=== PATIENT | female | born 1990 | race African-American/Black ===

== ENCOUNTER 2019-09-24 11:49 | Emergency (ER) | payer OTHER, SELFPAY ==
[2019-09-24 12:11] VITALS: BP 129/76; PULSE 108; RESP 20; TEMP 37.5; O2SAT 100
--- NOTE | 2019-09-24 12:41 | ED.GENADULT ---
HPI - General Adult General Chief complaint: Upper Respiratory Infection Stated complaint: cough/chest congestion Time Seen by Provider: 09/24/19 12:41 Source: patient and RN notes reviewed Mode of arrival: ambulatory Limitations: no limitations History of Present Illness HPI narrative: 29-year-old -[place] female complains of upper respiratory infection, sore throat, fatigue, facial congestion, intermittent chest wall tenderness with coughing episodes, and facial pain for the past 7 days. Amoxicillin 500mg (currently on for recent dental care), Dayquil, and Nyquil with some relief. No facial swelling. Dry cough. Chest congestion. Rhinorrhea and nasal congestion. Sore throat. Pain bilateral. Hurts to swallow. Low-grade fever, as high as 99F, orally. No drooling, neck or throat swelling. No chest pain, wheezing, or shortness of breath. 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 Denies nausea, vomiting, and abdominal pain. Tolerating liquids well. Bethany denies being , LMP 09/21/2019. Remains active. Some parts of this dictation were generated by voice recognition software and may contain typographical and/or grammatical inaccuracies. Related Data Home Medications Medication Instructions Recorded Confirmed amoxicillin 500 mg PO TID 09/24/19 09/24/19 Allergies Allergy/AdvReac Type Severity Reaction Status Date / Time No Known Allergies Allergy Verified 09/24/19 12:17 Review of Systems Review of Systems: Narrative: CONSTITUTIONAL: Complains of [id number]. Denies chills, sweats. EYES: Denies visual changes, redness, discharge. ENT: Complains of rhinorrhea, congestion, facial congestion and pain, sore throat. Denies otalgia. CARDIOVASCULAR: Denies chest pain, palpitations, edema. Complains of intermittent chest wall tenderness with coughing. RESPIRATORY: Denies dyspnea, wheezing. Complains of dry cough, chest congestion. GASTROINTESTINAL: Denies abdominal pain, nausea, vomiting, diarrhea. GENITOURINARY: Denies dysuria, hematuria, abnormal discharge. SKIN: Denies rash or itching. MUSCULOSKELETAL: Denies acute back pain, joint pain, or myalgia. NEUROLOGIC: Denies numbness or focal weakness. PSYCHIATRIC: Denies anxiety or depression. All systems reviewed and are unremarkable except as noted in HPI and below. 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 There is no relevant family history pertinent to the presenting complaint. Exam Narrative: Exam Narrative: GENERAL: This is a well-nourished, well-developed patient, in no apparent distress. Talks in full sentences and ambulates with steady gait without dyspnea. HEAD: normocephalic, atraumatic. EYES: PERRL. Sclera clear/white. Vision is grossly intact. EARS: External ears normal, auditory canals clear and without drainage, TMs normal without perforation. Hearing grossly intact. NOSE: External nose normal with no obvious nasal discharge, nares with moderate redness and enlarge turbinates, clear rhinorrhea. SINUSES: No significant tenderness upon palpation to maxillary and frontal sinuses. THROAT: Mucous membranes moist, posterior pharynx with mild erythema and exudate, and no drainage, no concern for Peritonsillar abscess. No drooling, trismus, or neck swelling. NECK: Neck supple, non-tender without lymphadenopathy, masses or thyromegaly. CARDIOVASCULAR: Regular rate and rhythm without murmurs, gallops, or rubs. Diffused mild-moderate reproducible tenderness to chest wall. No crepitus/subq air palpable. Skin intact. No ecchymosis or lesions. No
[2019-09-24 13:03] VITALS: BP 104/69; PULSE 105; RESP 20; TEMP 37.3; O2SAT 100
== END 2019-09-24 13:03 | disposition home or self-care (01) ==
PROVIDERS: Emergency Provider Nurse Practitioner Family
DX: J40 Bronchitis, not specified as acute or chronic (principal); M94.0 Chondrocostal junction syndrome [Tietze]; M41.9 Scoliosis, unspecified
CPT/HCPCS: 87081; 87880; 99213; G0463

== ENCOUNTER 2019-10-13 15:31 | Emergency (ER) | payer OTHER, SELFPAY ==
--- NOTE | 2019-10-13 15:35 | ED.EYEPROB ---
HPI - Eye Problem General Chief complaint: Eye Problems Stated complaint: sore on r/eyelid Time Seen by Provider: 10/13/19 15:35 Source: patient and RN notes reviewed History of Present Illness HPI Narrative: Patient is a 29-year-old female presents the urgent care with complaints of a stye to the right upper eyelid. Patient states it started approximately 2 weeks ago and she has been using warm compress and Visine without any relief. Patient states that the area is recurrent and denies of any drainage, severe pain, itching. Denies of any vision changes, trauma, known injury to the eye. No other acute complaints. No acute distress noted. Patient plan of care. Related Data Home Medications Medication Instructions Recorded Confirmed gabapentin 300 mg PO BID 10/13/19 10/13/19 Allergies Allergy/AdvReac Type Severity Reaction Status Date / Time No Known Allergies Allergy Verified 10/13/19 15:45 Review of Systems Review of Systems: Narrative: CONSTITUTIONAL: Denies fever, chills, or sweats. EYES: Denies visual changes, redness, or discharge. Reports of a right upper eyelid stye ENT: Denies rhinorrhea, congestion, sore throat, or otalgia. CARDIOVASCULAR: Denies chest pain, palpitations, or edema. RESPIRATORY: Denies cough or dyspnea. GASTROINTESTINAL: Denies abdominal pain, nausea, vomiting, or diarrhea. GENITOURINARY: Denies dysuria or hematuria. SKIN: Denies rash or itching. MUSCULOSKELETAL: Denies back pain, joint pain, or myalgia. NEUROLOGIC: Denies headache, numbness, or weakness. All other systems reviewed are negative, except as documented in HPI. 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 There is no relevant family history pertinent to the patient complaint. Exam Narrative: Exam Narrative: GENERAL: This is a well-nourished, well-developed patient, in no apparent distress. HEAD: normocephalic, atraumatic. EYES: PERRL. Sclera clear/white. Vision is grossly intact. non-tender, moderately inflammed right upper eyelid nodule without severe pain or itching EARS: External ears normal NOSE: External nose normal with no obvious nasal discharge, nares without redness, no rhinorrhea. THROAT: Mucous membranes moist NECK: Neck supple CARDIOVASCULAR: Regular rate and rhythm without murmurs, gallops, or rubs. RESPIRATORY: Clear to auscultation. Breath sounds equal bilaterally. No wheezes, rales, or rhonchi. SKIN: warm, intact with no suspicious lesions or rash, good texture and turgor. NEURO: awake, alert, and oriented to person, place and time. There were no obvious focal neurologic abnormalities. EXTREMITIES: No clubbing, cyanosis, or edema. Course Vital Signs Vital signs: Vital Signs Temperature 99.6 F 10/13/19 15:41 Pulse Rate 112 H 10/13/19 15:41 Respiratory Rate 20 10/13/19 15:41 Blood Pressure 123/72 10/13/19 15:41 Pulse Oximetry 100 10/13/19 15:41 Temperature 99.6 F 10/13/19 15:41 Pulse Rate 112 H 10/13/19 15:41 Respiratory Rate 20 10/13/19 15:41 Blood Pressure 123/72 10/13/19 15:41 Pulse Oximetry 100 10/13/19 15:41 Reviewed MDM - Eye Problem MDM Narrative Medical decision making narrative: Advised patient complete oral antibiotic regimen as prescribed. Use eyedrops to the right eye as directed. Continue warm compress. Patient should follow-up with an lead net software developer within 2 to 5 days. The area does not look like a typical stye but rather a chalazion. Advised patient to follow-up with her PCP for referral to an lead net software developer as n
[2019-10-13 15:41] VITALS: BP 123/72; PULSE 112; RESP 20; TEMP 37.6; O2SAT 100
== END 2019-10-13 16:03 | disposition home or self-care (01) ==
PROVIDERS: Emergency Provider Nurse Practitioner Family
DX: H00.11 Chalazion right upper eyelid (principal); M41.9 Scoliosis, unspecified
CPT/HCPCS: 99213; G0463

== ENCOUNTER 2019-10-14 13:08 | Outpatient (CLI) | payer OTHER, SELFPAY ==
[2019-10-14 14:49] LABS: HIV 1/2 Ab P24 Ag Result Negative (Negative); Hepatitis B Surface Anti Res Positive; Hepatitis C Virus Antibody Negative (Negative)
[2019-10-15 09:00] LABS: Rapid Plasma Reagin Non-Reactive (NonReactive)
[2019-10-16 11:57] LABS: Hepatitis B Surface Antigen Negative (Negative)
== END 2019-10-14 13:09 | disposition home or self-care (01) ==
PROVIDERS: Visit Provider Nurse Practitioner Women's Health
DX: Z11.3 Encounter for screening for infections with a predominantly sexual mode of transmission (principal)
CPT/HCPCS: 36415; 86592; 86703; 86706; 86803; 87340; G0432

== ENCOUNTER 2019-11-20 10:11 | Emergency (ER) | payer OTHER, SELFPAY ==
[2019-11-20 10:31] VITALS: BP 126/69; PULSE 97; RESP 20; TEMP 36.6; O2SAT 97
--- NOTE | 2019-11-20 10:47 | ED.URI ---
HPI - URI/Sore Throat General Chief Complaint: Upper Respiratory Infection Stated Complaint: fever/sore throat Time Seen by Provider: 11/20/19 10:38 Source: patient and RN notes reviewed Mode of arrival: ambulatory Limitations: no limitations History of Present Illness HPI Narrative: Patient presents today complaining of a 2-day history of dry cough, congestion, rhinorrhea, with fever up to 102, sore throat, and nausea that started this morning. No history of asthma or COPD. Patient is a social smoker. She has been taking Tylenol for her symptoms. Denies shortness of breath. MD elicited complaint: fever, cough and sore throat Related Data Home Medications Medication Instructions Recorded Confirmed gabapentin 300 mg PO BID 10/13/19 11/20/19 hydroxyzine HCl 50 mg PO BID 11/20/19 11/20/19 quetiapine 200 mg PO HS 11/20/19 11/20/19 Allergies Allergy/AdvReac Type Severity Reaction Status Date / Time No Known Allergies Allergy Verified 11/20/19 10:29 Review of Systems Review of Systems: Narrative: CONSTITUTIONAL: Denies body aches, chills, or sweats.+ Fever EYES: Denies visual changes, redness, or discharge. ENT: Denies otalgia.+ Congestion, rhinorrhea, sore throat CARDIOVASCULAR: Denies chest pain, palpitations, or edema. RESPIRATORY: Denies dyspnea.+ Cough GASTROINTESTINAL: Denies abdominal pain, vomiting, or diarrhea.+ Nausea GENITOURINARY: Denies dysuria or hematuria. SKIN: Denies rash, itching, or wounds. MUSCULOSKELETAL: Denies back pain, joint pain, or myalgia. NEUROLOGIC: Denies headache, numbness, tingling, or weakness. PSYCH: Denies depression or anxiety. 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 Please see nursing chart for further information. There is no relevant family history pertinent to the presenting complaint Exam Narrative: Exam Narrative: GENERAL: Well-appearing, well-nourished, and in no acute distress. HEAD: Normocephalic, atraumatic. EYES: EOMI. No redness or drainage. Conjunctivae normal. ENT: Mucous membranes pink and moist. Nares clear. No rhinorrhea. TMs normal bilaterally. Throat moderately erythematous and edematous. Tonsils 3+ with exudate. Uvula midline. NECK: Normal AROM. Supple. Bilateral anterior cervical chain lymphadenopathy. CHEST: No respiratory distress. Clear to auscultation. HEART: Regular rate and rhythm. No murmur appreciated. Normal peripheral pulses. EXTREMITIES: Normal range of motion. No edema. SKIN: Warm, dry, no rash. NEURO: No focal deficits. Alert and oriented x3. Gait steady. PSYCH: Normal affect. No signs of depression or anxiety. Course Vital Signs Vital signs: Vital Signs Temperature 98 F 11/20/19 10:31 Pulse Rate 97 11/20/19 10:31 Respiratory Rate 20 11/20/19 10:31 Blood Pressure 126/69 11/20/19 10:31 Pulse Oximetry 97 11/20/19 10:31 Temperature 98 F 11/20/19 10:31 Pulse Rate 97 11/20/19 10:31 Respiratory Rate 20 11/20/19 10:31 Blood Pressure 126/69 11/20/19 10:31 Pulse Oximetry 97 11/20/19 10:31 Reviewed. Pt has been instructed to follow up with her PCP regarding her elevated blood pressure today. MDM - URI/Sore Throat Differential Diagnosis Differential diagnosis: Likely upper respiratory infection, otitis media, viral infection, bronchitis, pharyngitis and other (Strep throat) Lab Data Attestation: I reviewed the patient's lab results. Labs: Strep Screen Presumptive Negative *(Reference Range: Negative)* Cr
== END 2019-11-20 10:54 | disposition home or self-care (01) ==
PROVIDERS: Emergency Provider Nurse Practitioner
DX: J06.9 Acute upper respiratory infection, unspecified (principal); J02.9 Acute pharyngitis, unspecified; F31.9 Bipolar disorder, unspecified; M41.9 Scoliosis, unspecified; Z72.0 Tobacco use
CPT/HCPCS: 87081; 87880; 99213; G0463

== ENCOUNTER 2020-02-21 10:28 | Emergency (ER) | payer OTHER, SELFPAY ==
[2020-02-21 10:38] VITALS: BP 130/83; PULSE 86; RESP 16; TEMP 36.8; O2SAT 100
--- NOTE | 2020-02-21 10:44 | ED.ABDPAIN ---
HPI - Abdominal Pain General Chief Complaint: Abdominal Pain Stated Complaint: abd pain,vomiting Time Seen by Provider: 02/21/20 11:00 Source: patient and RN notes reviewed Mode of arrival: ambulatory Limitations: no limitations History of Present Illness HPI narrative: 29-year-old female presents with concern for nausea, vomiting, soft stools, abdominal pain that started yesterday. She denies fever, malaise, diarrhea. Reports she has vomited 3 times today. Reports she tried to eat crackers and threw up. She denies flank pain, hematuria, dysuria, frequency. Reports her menstrual period ended yesterday, she has a tubal ligation. 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 Denies chills, sweats, or fever. EYES: Denies visual changes, redness, or discharge. ENT: Denies rhinorrhea, congestion, sinus pain, otalgia or sore throat. CARDIOVASCULAR: Denies chest pain, palpitations, or edema. RESPIRATORY: Denies cough or dyspnea. GASTROINTESTINAL: Reports lower abdominal pain, nausea, vomiting, soft stool. Denies diarrhea, bloody, or mucous stools. GENITOURINARY: Denies dysuria or hematuria. SKIN: Denies rash or itching. MUSCULOSKELETAL: Denies back pain or myalgia. NEUROLOGIC: Denies headache. 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 There is no relevant family history pertinent to the presenting complaint Exam Narrative: Exam Narrative: GENERAL: Well-appearing, well-nourished, and in no acute distress. HEAD: Normocephalic, atraumatic. EYES: PERRLA, conjunctivae clear, and EOMI. ENT: Nares clear. Mucous membranes moist. NECK: Supple. No lymphadenopathy CHEST: Speaks in full sentences. No respiratory distress. HEART: Regular rate and rhythm. ABDOMEN: Soft, flat, nondistended. No guarding, rebound tenderness, or rigidity. No pulsatille masses. Bowel sounds present in all four quadrants. No organomegaly. Negative Weiner?s sign. No periumbilical tenderness. No Supra public tenderness or distension. Good femoral pulses bilaterally. No hernia noted. No scars or surface trauma. SKIN: Warm, dry, no rash. NEURO: Alert and oriented x3. PSYCH: Normal mood and affect Course Course Emergency Course: Patient is aware of diagnosis, understands and agrees to treatment plan. Anticipatory guidance given. Patient agrees to follow-up as directed and is aware of reasons to seek care at the emergency department. Portions of this record may have been created with voice recognition software Vital Signs Vital signs: Vital Signs Temperature 98.2 F 02/21/20 10:38 Pulse Rate 86 02/21/20 10:38 Respiratory Rate 16 02/21/20 10:38 Blood Pressure 130/83 02/21/20 10:38 Pulse Oximetry 100 02/21/20 10:38 Temperature 98.2 F 02/21/20 10:38 Pulse Rate 86 02/21/20 10:38 Respiratory Rate 16 02/21/20 10:38 Blood Pressure 130/83 02/21/20 10:38 Pulse Oximetry 100 02/21/20 10:38 Reviewed. Patient has been instructed to follow up with her primary care provider
== END 2020-02-21 11:25 | disposition home or self-care (01) ==
PROVIDERS: Emergency Provider Nurse Practitioner; PCP Nurse Practitioner
DX: R11.2 Nausea with vomiting, unspecified (principal); F31.9 Bipolar disorder, unspecified; Z87.442 Personal history of urinary calculi
CPT/HCPCS: 81003; 99213; G0463

== ENCOUNTER 2020-06-06 10:33 | Emergency (ER) | payer OTHER, SELFPAY ==
[2020-06-06 10:43] VITALS: BP 120/91; PULSE 77; RESP 16; TEMP 37.1; O2SAT 100
--- NOTE | 2020-06-06 10:46 | ED.EYEPROB ---
HPI - Eye Problem General Chief complaint: Eye Problems Stated complaint: R/eye pain Time Seen by Provider: 06/06/20 10:46 Source: patient and RN notes reviewed History of Present Illness HPI Narrative: Patient is a 30-year-old female who presents the urgent care with complaints of swelling and redness to the side of the right eye. Patient states that 2 days ago she believes she may have got bit where there was a bug in her eye. Denies of any use of [id number] medications but has been using warm compresses to the area. Denies of any changes in vision. No other acute complaints. No acute distress noted. Patient aware of the plan of care. Some parts of this dictation were generated by voice recognition software and may contain typographical and/or grammatical inaccuracies. Related Data Home Medications Medication Instructions Recorded Confirmed hydroxyzine HCl 50 mg PO BID 11/20/19 06/06/20 quetiapine 200 mg PO HS 11/20/19 06/06/20 buspirone mg 02/21/20 Allergies Allergy/AdvReac Type Severity Reaction Status Date / Time No Known Allergies Allergy Verified 11/20/19 10:29 Review of Systems Review of Systems: Narrative: CONSTITUTIONAL: Denies fever, chills, or sweats. EYES: Reports of redness and swelling surrounding the right eye without changes in vision ENT: Denies rhinorrhea, congestion, sore throat, or otalgia. CARDIOVASCULAR: Denies chest pain, palpitations, or edema. RESPIRATORY: Denies cough or dyspnea. GASTROINTESTINAL: Denies abdominal pain, nausea, vomiting, or diarrhea. GENITOURINARY: Denies dysuria or hematuria. SKIN: Denies rash or itching. MUSCULOSKELETAL: Denies back pain, joint pain, or myalgia. NEUROLOGIC: Denies headache, numbness, or weakness. All other systems reviewed are negative, except as documented in HPI. 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 There is no relevant family history pertinent to the patient complaint. Exam Narrative: Exam Narrative: GENERAL: This is a well-nourished, well-developed patient, in no apparent distress. HEAD: normocephalic, atraumatic. EYES: PERRL. Sclera clear/white. Vision is grossly intact. Notable external upper eyelid hordeolum to the outer lateral canthus of the right eye with mild surrounding erythema and edema EARS: External ears normal NOSE: External nose normal with no obvious nasal discharge, nares without redness, no rhinorrhea. THROAT: Mucous membranes moist NECK: Neck supple SKIN: warm, intact with no suspicious lesions or rash, good texture and turgor. NEURO: awake, alert, and oriented to person, place and time. There were no obvious focal neurologic abnormalities. EXTREMITIES: No clubbing, cyanosis, or edema. Course Vital Signs Vital signs: Vital Signs Temperature 98.8 F 06/06/20 10:43 Pulse Rate 77 06/06/20 10:43 Respiratory Rate 16 06/06/20 10:43 Blood Pressure 120/91 H 06/06/20 10:43 Pulse Oximetry 100 06/06/20 10:43 Temperature 98.8 F 06/06/20 10:43 Pulse Rate 77 06/06/20 10:43 Respiratory Rate 16 06/06/20 10:43 Blood Pressure 120/91 H 06/06/20 10:43 Pulse Oximetry 100 06/06/20 10:43 Reviewed-patient is informed that they may have pre-hypertension or hypertension based on a blood pressure reading in the department. I recommend the patient call the primary care provider listed on their discharge instructions or a physic
== END 2020-06-06 11:05 | disposition home or self-care (01) ==
PROVIDERS: Emergency Provider Nurse Practitioner; PCP Nurse Practitioner
DX: H00.011 Hordeolum externum right upper eyelid (principal); F31.9 Bipolar disorder, unspecified; M41.9 Scoliosis, unspecified
CPT/HCPCS: 99213; G0463

== ENCOUNTER 2020-06-16 11:54 | Emergency (ER) | payer OTHER, SELFPAY ==
--- NOTE | ~2020-06-16 | XR_ITS ---
EXAMINATION: XR wrist LT min 3V DATE: 06/16/2020 12:20 INDICATION: Left wrist injury. TECHNIQUE: 4 views of left wrist were obtained. COMPARISON: None. FINDINGS: Bone alignment is normal. No fracture. 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 Joint s paces are normal. IMPRESSION: 1. No fracture. Reviewed, dictated and finalized at location A. IMPRESSION: 1. No fracture.
--- NOTE | ~2020-06-16 | XR_ITS ---
EXAMINATION: XR hand LT min 3V DATE: 06/16/2020 12:18 INDICATION: Left hand injury. TECHNIQUE: 3 views of left hand were obtained. COMPARISON: None. FINDINGS: Bone alignment is normal. No fracture. 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 Joint s paces are normal. IMPRESSION: 1. No fracture. Reviewed, dictated and finalized at location A. IMPRESSION: 1. No fracture.
--- NOTE | 2020-06-16 12:01 | ED.GENADULT ---
HPI - General Adult General Chief complaint: Extremity Injury, Upper Stated complaint: left wrist injury Time Seen by Provider: 06/16/20 12:02 Source: patient Mode of arrival: ambulatory Limitations: no limitations History of Present Illness HPI narrative: 24-year-old female patient presents to the [facility] with complaints of left wrist pain. Patient states that she slipped in the rain yesterday using her left hand to brace her fall. Patient states that she landed on her wrist in the mud. Patient states she has been icing it and taking ibuprofen for the pain. Patient states it hurts mostly to the area along the fifth metacarpal. Patient denies any numbness or tingling at this time. Related Data Home Medications Medication Instructions Recorded Confirmed No Home Medications 06/16/20 06/16/20 Allergies Allergy/AdvReac Type Severity Reaction Status Date / Time No Known Allergies Allergy Verified 06/16/20 12:04 Review of Systems Review of Systems: Narrative: CONSTITUTIONAL: Denies fever, chills, or sweats. EYES: Denies visual changes, redness, or discharge. ENT: Denies rhinorrhea, congestion, sore throat, or otalgia. CARDIOVASCULAR: Denies chest pain, palpitations, or edema. RESPIRATORY: Denies cough or dyspnea. GASTROINTESTINAL: Denies abdominal pain, nausea, vomiting, or diarrhea. GENITOURINARY: Denies dysuria or hematuria. SKIN: Denies rash or itching. MUSCULOSKELETAL: Denies back pain, joint pain, or myalgia. Positive left wrist and hand pain NEUROLOGIC: Denies headache, numbness, or weakness. PSYCHIATRIC: Denies anxiety or depression. [facility] Past Medical History Medical History Bipolar disorder Kidney stones 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 Scoliosis Surgical History Surgical History History of adenoidectomy History of tubal ligation Social History Social History Gender identity (if verbalized by the patient): Female Comments At the time of my signature I agree with nursing past medical history, surgical, social, and family history. There is no relevant family history pertinent to the presenting complaint. Exam Narrative: Exam Narrative: GENERAL: Well-appearing, well-nourished, and in no acute distress. HEAD: Normocephalic, atraumatic. EYES: PERRLA and EOMI. ENT: Nares clear, no rhinorrhea or epistaxis. Mucous membranes moist. NECK: Supple. No lymphadenopathy CHEST: Clear to auscultation. No respiratory distress. HEART: Regular rate and rhythm. No murmur heard. Normal peripheral pulses. ABDOMEN: Soft, nontender, nondistended, normal active bowel sounds. EXTREMITIES: The L hand is without obvious asymmetry or deformity when compared to the R hand. No swelling, erythema, atrophy, or obvious deformity. No surface trauma, open wounds, nail avulsion, tissue avulsion, partial or complete amputation, subungual hematoma, bony deformity. Normal cascade of fingers. Pain with flexion and extension of the fourth and fifth metacarpal. Pain to left hand aganist restistance. No focal fullness, thobbing pain, swelling of fingertip. No tenderness to palpation along the lateral side of the fifth metacarpal. Pulses and cap refill. Pain with flexion extension of the left wrist. Pain to the ulnar side of the wrist on palpation. SKIN: Warm, dry, no rash. NEURO: No focal deficits. Alert and oriented x3. Course Reevaluation(s) Reevaluation #1: Reevaluated patient after her x-ray had resulted. Discussed with patient that there is no acute for action was noted to the wrist or the hand. Discussed with patient that we will go ahead and wrap the wrist and hand with an Lokesh wrap, she can continue taking Tylenol and ibuprofen as needed for pain, ice it and elevate it to help with swelling. Discussed with patient if she has worsenin
[2020-06-16 12:02] VITALS: BP 149/85; PULSE 95; RESP 18; TEMP 37.1; O2SAT 100
== END 2020-06-16 12:30 | disposition home or self-care (01) ==
PROVIDERS: Emergency Provider Nurse Practitioner Family; PCP Nurse Practitioner
DX: S63.502A Unspecified sprain of left wrist, initial encounter (principal); W01.0XXA Fall on same level from slipping, tripping and stumbling without subsequent striking against object, initial encounter
CPT/HCPCS: 73110; 73130; 99213; G0463

== ENCOUNTER 2020-08-17 17:44 | Emergency (ER) | payer MEDICAID, SELFPAY ==
[2020-08-17 17:52] VITALS: BP 134/90; PULSE 101; RESP 20; TEMP 37.1; O2SAT 100
--- NOTE | 2020-08-17 17:53 | ED.GENADULT ---
HPI - General Adult General Chief complaint: Extremity Injury, Upper Stated complaint: R/pinky injury Source: patient and RN notes reviewed Mode of arrival: ambulatory Limitations: no limitations History of Present Illness HPI narrative: 30-year-old -[place] female present with complaints of laceration to pinky (5th) finger of right hand, caused by finger caught in oven door hinge door 30 minutes ago. Bethany reports that she cut her finger on her oven door hinge and it was difficult stopping the bleeding, stopped prior to arrival. Denies focal weakness, altered sensation, rash, fever or chills. Denies pain, numbness or tingling, or loss of mobility. No foreign body sensation. RIGHT HAND dominant hand. Tetanus NOT up-to-date, will update today. The patient reports she have not been diagnosed with COVID-19. The patient reports she is not waiting for the results of a COVID-19 lab test. The patient reports she do not have weakness or fatigue. The patient reports she do not have a new or worsening cough or shortness of breath. Denies chest pain. The patient reports she do not have any rhinorrhea, congestion, sore throat, loss of taste, nausea, vomiting, abdominal pain, and diarrhea. Tolerating po intake well. Denies recent traveling. Denies concerns for COVID-19 or exposures been home with limited outdoor exposure except for essential household needs, work, and return home. At this time, patient is not suspected of having COVID-19. Some parts of this dictation were generated by voice recognition software and may contain typographical and/or grammatical inaccuracies Related Data Home Medications Medication Instructions Recorded Confirmed hydroxyzine pamoate 50 mg PO TID PRN 08/17/20 08/17/20 quetiapine 300 mg PO HS 08/17/20 08/17/20 Allergies Allergy/AdvReac Type Severity Reaction Status Date / Time No Known Allergies Allergy Verified 08/17/20 17:59 Review of Systems Review of Systems: Narrative: CONSTITUTIONAL: Denies fever, chills, sweats. EYES: Denies visual changes, redness, discharge. ENT: Denies rhinorrhea, congestion, sore throat, otalgia. CARDIOVASCULAR: Denies chest pain, palpitations, edema. RESPIRATORY: Denies dyspnea, wheezing, cough. GASTROINTESTINAL: Denies abdominal pain, nausea, vomiting, or diarrhea. SKIN: Denies rash or itching. Complains of laceration to pinky (5th) finger of RT hand. MUSCULOSKELETAL: Denies acute back pain, joint pain, or myalgia. NEUROLOGIC: Denies numbness or focal weakness. PSYCHIATRIC: Denies anxiety or depression. All other systems reviewed & are unremarkable except as noted in HPI and below. [facility] Past Medical History Medical History (Updated 08/17/20 @ 19:07 by ARACELI Saeed) Bipolar disorder Kidney stones 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 Scoliosis Surgical History Surgical History (Updated 08/17/20 @ 19:07 by ARACELI Saeed) History of adenoidectomy History of spinal surgery 02/2020 History of tubal ligation Family History Family History (Updated 08/17/20 @ 19:01 by ARACELI Saeed) Father Alive and well Mother Alive and well Social History Social History (Updated 08/17/20 @ 19:00 by ARACELI Saeed) Years smoked: 12 Smoking status: Light tobacco smoker Tobacco type: cigarettes Second hand tobacco smoke exposure: No Alcohol intake: current Substance use: never Living arrangements: with family Occupation/Education: occupation Additional occupation/education comments: self employed Gender identity (if verbalized by the patient): Female Sexual Orientation (if Verbalized by the Patient): Straight or Heterosexual Comments At time of signature, agree with nurse past medical, surgical, social, and family history. There is no relevant family history pertinent to the presenting complaint. Exam Narrative: Exam Narrative: GENERAL: This is a well-ladonna
[2020-08-17] MEDS: TETANUS,DIPHTHERIA,AC PERTUSSIS ADULT (0.5 ML) BOOSTRIX IM (18:17)
== END 2020-08-17 18:38 | disposition home or self-care (01) ==
PROVIDERS: Emergency Provider Nurse Practitioner Family; PCP Nurse Practitioner
DX: S61.216A Laceration without foreign body of right little finger without damage to nail, initial encounter (principal); Z23 Encounter for immunization; F31.9 Bipolar disorder, unspecified; Z87.442 Personal history of urinary calculi; F17.210 Nicotine dependence, cigarettes, uncomplicated; R03.0 Elevated blood-pressure reading, without diagnosis of hypertension; W23.0XXA Caught, crushed, jammed, or pinched between moving objects, initial encounter
CPT/HCPCS: 12001; 90471; 90715; 99212; G0463

== ENCOUNTER 2020-09-06 14:09 | Emergency (ER) | payer MEDICAID, SELFPAY ==
--- NOTE | 2020-09-06 14:31 | ED.URI ---
HPI - URI/Sore Throat General Chief Complaint: Upper Respiratory Infection Stated Complaint: fever/vomiting/diarrhea Time Seen by Provider: 09/06/20 15:00 Source: patient and RN notes reviewed Mode of arrival: ambulatory Limitations: no limitations History of Present Illness HPI Narrative: 30-year-old female presents concern for fever, body aches, chills, sweats, fatigue, loss of appetite, nausea, vomiting for 4 days. She denies known Covid exposure, flu or strep exposure. She works at the [employer] with the public. She reports has been taking Tylenol for fever MD elicited complaint: fever Related Data Home Medications Medication Instructions Recorded Confirmed hydroxyzine pamoate 50 mg PO TID PRN 08/17/20 09/06/20 quetiapine 300 mg PO HS 08/17/20 09/06/20 Allergies Allergy/AdvReac Type Severity Reaction Status Date / Time No Known Allergies Allergy Verified 08/17/20 17:59 Review of Systems Review of Systems: Narrative: CONSTITUTIONAL: Reports malaise, chills, sweats, fever. EYES: Denies visual changes, redness, or discharge. ENT: Denies rhinorrhea, congestion, sinus pain, otalgia or sore throat. CARDIOVASCULAR: Denies chest pain, palpitations, or edema. RESPIRATORY: Denies cough or dyspnea. GASTROINTESTINAL: Denies abdominal pain, bloody, or mucous stools. Reports nausea, vomiting, diarrhea, loss of appetite GENITOURINARY: Denies dysuria or hematuria. SKIN: Denies rash or itching. MUSCULOSKELETAL: Reports myalgia. NEUROLOGIC: Reports headache. All systems reviewed & are unremarkable except as noted in HPI and below [facility] Past Medical History Medical History (Updated 09/06/20 @ 15:15 by Mona Zepeda NP) Bipolar disorder Kidney stones 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 Scoliosis Surgical History Surgical History (Updated 08/17/20 @ 19:07 by ARACELI Saeed) History of adenoidectomy History of spinal surgery 02/2020 History of tubal ligation Family History Family History (Updated 08/17/20 @ 19:01 by ARACELI Saeed) Father Alive and well Mother Alive and well Social History Social History (Updated 08/17/20 @ 19:00 by ARACELI Saeed) Years smoked: 12 Smoking status: Light tobacco smoker Tobacco type: cigarettes Second hand tobacco smoke exposure: No Alcohol intake: current Substance use: never Additional occupation/education comments: self employed Gender identity (if verbalized by the patient): Female Comments At time of signature, agree with nursing past medical, surgical, social and family history. There is no relevant family history pertinent to the presenting complaint Exam Narrative: Exam Narrative: GENERAL: Well-appearing, well-nourished, and in no acute distress. HEAD: Normocephalic, atraumatic. EYES: PERRLA, conjunctivae clear ENT: Nares clear. Mucous membranes moist. TM pearly cardenas with sharp light reflex bilaterally; no tragal tenderness. Oropharynx without erythema or lesions. Tonsils not enlarged and without exudate. NECK: Supple. No lymphadenopathy. CHEST: No respiratory distress. Clear to auscultation. No bony deformities, no asymmetry. Speaks in full sentences. HEART: Regular rate and rhythm. No murmur heard. Normal peripheral pulses. ABDOMEN: Soft, nontender, nondistended, normal active bowel sounds, no palpable masses. SKIN: Warm, dry, no rash. NEURO: Alert and oriented x3. PSYCH: Normal mood and affect Course Course Emergency Course: Patient is aware of diagnosis, understands and agrees to treatment plan. Anticipatory guidance given. Patient agrees to follow-up as directed and is aware of reasons to seek care at the emergency department. Portions of this record may have been created with voice recognition software Vital Signs Vital signs: Vital Signs Temperature 99.6 F 09/06/20 14:35 Pulse Rate 78 09/06/20 14:35 Respiratory Rate 18 09/06/20 14:35 Blood Pressure 1
[2020-09-06 14:35] VITALS: BP 120/71; PULSE 78; RESP 18; TEMP 37.6; O2SAT 100
[2020-09-08 00:16] LABS: SARS-CoV-2 RNA PCR Negative
== END 2020-09-06 15:27 | disposition home or self-care (01) ==
PROVIDERS: Emergency Provider Nurse Practitioner; PCP Nurse Practitioner
DX: B34.9 Viral infection, unspecified (principal); Z20.822 Contact with and (suspected) exposure to COVID-19; F31.9 Bipolar disorder, unspecified; M41.9 Scoliosis, unspecified; F17.210 Nicotine dependence, cigarettes, uncomplicated
CPT/HCPCS: 87081; 87426; 87804; 87880; 99213; C9803; G0463; U0003

== ENCOUNTER 2021-03-14 10:30 | Emergency (ER) | payer OTHER, SELFPAY ==
[2021-03-14 10:39] VITALS: BP 122/84; PULSE 92; RESP 16; TEMP 36.8; O2SAT 100
--- NOTE | 2021-03-14 11:32 | ED.NECK ---
HPI - Neck Pain/Injury General Chief Complaint: Neck Pain/Injury Stated Complaint: Neck and back Pain Source: patient and RN notes reviewed Limitations: no limitations History of Present Illness HPI Narrative: The right-handed patient a smoker/nondrinker who works as client service supervisor, presents with upper back pain. Patient states she has a history of arthropathy s/p lumbar back surgery in the past, for sciatica. Last week she has been working more, and now has bilateral upper back/lower neck pain. No fever, gait changes, numbness, weakness, radiating pain [as she did before her back surgery]; mild, worse with activity, better with rest. Patient advised to follow-up with prior/ recent orthopedist Related Data Home Medications Medication Instructions Recorded Confirmed hydroxyzine pamoate 50 mg PO TID PRN 08/17/20 09/06/20 quetiapine 300 mg PO HS 08/17/20 09/06/20 Allergies Allergy/AdvReac Type Severity Reaction Status Date / Time No Known Allergies Allergy Verified 08/17/20 17:59 Review of Systems Review of Systems: Narrative: General/Constitutional: No weight loss,fever Eyes: N0: Redness,discharge Ears/Nose/Throat: No: Epistaxis,ear discharge Respiratory: Denies: Hemoptysis Gastrointestinal: No Vomiting, Bleeding-rectal Skin: No Lumps, eruption Neurologic: No Focal Weakness,Sz Hematologic: Denies: Petechiae/Purpura Psychiatric: No: Suicida ideationl All Other Systems: Reviewed and Negative [facility] Past Medical History Medical History (Updated 03/14/21 @ 11:38 by Mat Crowley MD) Bipolar disorder Kidney stones 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 Scoliosis Surgical History Surgical History (Updated 08/17/20 @ 19:07 by ARACELI Saeed) History of adenoidectomy History of spinal surgery 02/2020 History of tubal ligation Family History Family History (Updated 08/17/20 @ 19:01 by ARACELI Saeed) Father Alive and well Mother Alive and well Social History Social History (Updated 08/17/20 @ 19:00 by ARACELI Saeed) Years smoked: 12 Smoking status: Light tobacco smoker Tobacco type: cigarettes Second hand tobacco smoke exposure: No Alcohol intake: current Substance use: never Additional occupation/education comments: self employed Gender identity (if verbalized by the patient): Female Comments At time of signature, agree with nursing past medical, surgical, social and family history. There is no relevant family history pertinent to the presenting complaint Exam Narrative: Exam Narrative: General Appearance: Well appearing, Well nourished EYE: PERRLA, Conjunctiva clear Ears: External ear normal Nose: Normal nose Mouth/Throat: Normal appearing, Normal lips Neck: Supple Respiratory: Airway patent Abdomen: Soft Musculoskeletal: Normal strength (no footdrop, 5/5 : Bi?Tri , EH L-FHL, gastroc-AT, no saddle weakness) Spine/Back: Paraspinal cervical muscle tender Skin: Normal color Neurological: A&O x3, CN II-XII intact, Normal reflexes (symmetric, 2+ Bi, Tri, KJ, trace AJ) Psychiatric: Normal mood Course Vital Signs Vital signs: Vital Signs Temperature 98.3 F 03/14/21 10:39 Pulse Rate 92 03/14/21 10:39 Respiratory Rate 16 03/14/21 10:39 Blood Pressure 122/84 03/14/21 10:39 Pulse Oximetry 100 03/14/21 10:39 Temperature 98.3 F 03/14/21 10:39 Pulse Rate 92 03/14/21 10:39 Respiratory Rate 16 03/14/21 10:39 Blood Pressure 122/84 03/14/21 10:39 Pulse Oximetry 100 03/14/21 10:39 Discharge Plan Discharge Clinical Impression: Strain of neck muscle Qualifiers: Encounter type: initial encounter Qualified Code(s): S16.1XXA - Strain of muscle, fascia and tendon at neck level, initial encounter Patient Disposition: Home, Self-Care Condition: Stable Instructions: Acute Neck Pain (ED) Prescriptions: New acetaminophen-codeine 300-30 mg
== END 2021-03-14 11:39 | disposition home or self-care (01) ==
PROVIDERS: Emergency Provider Emergency Medicine; PCP Nurse Practitioner
DX: S16.1XXA Strain of muscle, fascia and tendon at neck level, initial encounter (principal); X58.XXXA Exposure to other specified factors, initial encounter; F31.9 Bipolar disorder, unspecified; M41.9 Scoliosis, unspecified
CPT/HCPCS: 99213; G0463

== ENCOUNTER 2021-06-01 18:08 | Emergency (ER) | payer OTHER, SELFPAY ==
[2021-06-01 18:29] VITALS: BP 113/71; PULSE 70; RESP 18; TEMP 36.8; O2SAT 100
--- NOTE | 2021-06-01 19:06 | ED.FEMALEGU ---
HPI - Female Genitourinary General Chief complaint: Urogenital-Female Stated complaint: UTI Time Seen by Provider: 06/01/21 18:50 Source: patient, RN notes reviewed and old records reviewed Mode of arrival: ambulatory Limitations: no limitations History of Present Illness HPI Narrative: 31-year-old female who presents to [facility] with complaints of right flank pain, and lower pelvic pressure, some urinary frequency, urgency, burning with urination and some dribbling for past 4 days. Patient also states that she has had a history of bacterial vaginosis in the past and and has been having some yellowish discharge with odor. Patient denies any fevers chills or any sweats denies any nausea or vomiting or diarrhea. Patient denies any concerns for STD exposure, has had tubal ligation. MD elicited complaint: dysuria, UTI , vaginal discharge, back pain and flank pain Onset (ago): day(s) (4) Related Data Home Medications Medication Instructions Recorded Confirmed hydroxyzine pamoate 50 mg PO TID PRN 08/17/20 06/01/21 quetiapine 100 mg PO DAILY 06/01/21 06/01/21 Allergies Allergy/AdvReac Type Severity Reaction Status Date / Time phenazopyridine AdvReac Nausea and Verified 06/01/21 18:48 [From Pyridium] Vomiting Review of Systems Review of Systems: CONSTITUTIONAL: Denies fever, chills, or sweats. EYES: Denies visual changes, redness, or discharge. ENT: Denies rhinorrhea, congestion, sore throat, or otalgia. CARDIOVASCULAR: Denies chest pain, palpitations, or edema. RESPIRATORY: Denies cough or dyspnea. GASTROINTESTINAL: Positives suprapubic abdominal pain, nausea, vomiting, or diarrhea. GENITOURINARY: Positive dysuria or hematuria. SKIN: Denies rash or itching. MUSCULOSKELETAL: Right flank area back pain, joint pain, or myalgia. NEUROLOGIC: Denies headache, numbness, or weakness. PSYCHIATRIC: Positive anxiety or depression. All systems reviewed & are unremarkable except as noted in HPI and below [facility] Past Medical History Medical History (Updated 06/01/21 @ 19:13 by Lynsey Sanchez NP) Bipolar disorder Kidney stones 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 Scoliosis Surgical History Surgical History History of adenoidectomy History of spinal surgery 02/2020 History of tubal ligation Family History Family History Father Alive and well Mother Alive and well Social History Social History (Updated 06/01/21 @ 19:24 by Lynsey Sanchez NP) Years smoked: 12 Smoking status: Light tobacco smoker Tobacco type: cigarettes Second hand tobacco smoke exposure: No Additional smoking assessment comments: Quit 4 months ago Alcohol intake: current Substance use: never Additional occupation/education comments: self employed Gender identity (if verbalized by the patient): Female Sexual Orientation (if Verbalized by the Patient): Straight or Heterosexual Comments At time of signature, agree with nursing past medical, surgical, social and family history. There is no relevant family history pertinent to the presenting complaint Exam Narrative: GENERAL: Well-appearing, well-nourished, and in no acute distress. HEAD: Normocephalic, atraumatic. EYES: PERRLA and EOMI. ENT: Nares clear, no rhinorrhea or epistaxis. Mucous membranes moist. NECK: Supple. No lymphadenopathy CHEST: Clear to auscultation. No respiratory distress. SaO2 100% on room air HEART: Regular rate and rhythm. No murmur heard. Normal peripheral pulses. ABDOMEN: Soft, tender to supra pubic region described as pressure, nondistended, normal active bowel sounds.CVA tenderness on palpation. EXTREMITIES: Normal range of motion. No edema. SKIN: Warm, dry, no rash. NEURO: No focal deficits. Alert and oriented x3. Course Vital Signs Vital signs: Vital Signs Temperature 36.8 C 06/01/21 18
== END 2021-06-01 19:22 | disposition home or self-care (01) ==
PROVIDERS: Emergency Provider Registered Nurse; PCP Nurse Practitioner
DX: N76.0 Acute vaginitis (principal); N39.0 Urinary tract infection, site not specified; F17.210 Nicotine dependence, cigarettes, uncomplicated; F31.9 Bipolar disorder, unspecified; M41.9 Scoliosis, unspecified
CPT/HCPCS: 81003; 87086; 99213; G0463

== ENCOUNTER 2021-06-28 10:50 | Emergency (ER) | payer OTHER, SELFPAY ==
[2021-06-28 11:03] VITALS: BP 135/84; PULSE 95; RESP 16; TEMP 36.9; O2SAT 100
--- NOTE | 2021-06-28 11:39 | ED.FEMALEGU ---
HPI - Female Genitourinary General Chief complaint: Urogenital-Female Stated complaint: blood in urine,nausea Time Seen by Provider: 06/28/21 11:05 Source: patient and RN notes reviewed Mode of arrival: ambulatory Limitations: no limitations History of Present Illness HPI Narrative: Patient presents today complaining of malodorous urine, voiding small amounts, and dysuria with small amount of hematuria since yesterday. Patient is increased her water intake, which has helped slightly. She was seen at [facility] on 06/01/2021 and was prescribed Bactrim. The subsequent culture came back negative. MD elicited complaint: UTI Related Data Home Medications Medication Instructions Recorded Confirmed hydroxyzine pamoate 50 mg PO TID PRN 08/17/20 06/01/21 quetiapine 100 mg PO DAILY 06/01/21 06/01/21 Allergies Allergy/AdvReac Type Severity Reaction Status Date / Time phenazopyridine AdvReac Nausea and Verified 06/01/21 18:48 [From Pyridium] Vomiting Review of Systems Review of Systems: CONSTITUTIONAL: Denies body aches, fever, chills, or sweats. EYES: Denies visual changes, redness, or discharge. ENT: Denies rhinorrhea, congestion, sore throat, or otalgia. CARDIOVASCULAR: Denies chest pain, palpitations, or edema. RESPIRATORY: Denies cough or dyspnea. GASTROINTESTINAL: Denies abdominal pain, nausea, vomiting, or diarrhea. GENITOURINARY: + Dysuria, hematuria, malodorous urine, voiding small amounts. SKIN: Denies rash, itching, or wounds. MUSCULOSKELETAL: Denies back pain, joint pain, or myalgia. NEUROLOGIC: Denies headache, numbness, tingling, or weakness. PSYCH: Denies depression or anxiety. [facility] Past Medical History Medical History Bipolar disorder Kidney stones 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 Scoliosis Surgical History Surgical History History of adenoidectomy History of spinal surgery 02/2020 History of tubal ligation Family History Family History Father Alive and well Mother Alive and well Social History Social History Years smoked: 12 Smoking status: Light tobacco smoker Tobacco type: cigarettes Second hand tobacco smoke exposure: No Additional smoking assessment comments: Quit 4 months ago Alcohol intake: current Substance use: never Additional occupation/education comments: self employed Gender identity (if verbalized by the patient): Female Sexual Orientation (if Verbalized by the Patient): Straight or Heterosexual Comments At time of signature, I have reviewed and agree with nursing past medical, surgical, social and family history unless otherwise noted. Please see nursing chart for further information. There is no relevant family history pertinent to the presenting complaint Exam Narrative: GENERAL: Well-appearing, well-nourished, and in no acute distress. HEAD: Normocephalic, atraumatic. EYES: EOMI. No redness or drainage. Conjunctivae normal. ENT: Mucous membranes pink and moist. NECK: Normal AROM. CHEST: No respiratory distress. Clear to auscultation. HEART: Regular rate and rhythm. No murmur appreciated. Normal peripheral pulses. ABDOMEN: Soft, nondistended, normal active bowel sounds.-CVAT. Suprapubic tenderness MUSCULOSKELETAL: No bony tenderness. EXTREMITIES: Normal range of motion. No edema. SKIN: Warm, dry, no rash. Capillary refill normal. Normal skin turgor. NEURO: No focal deficits. Alert and oriented x3. Gait steady. PSYCH: Normal affect. No signs of depression or anxiety. Course Vital Signs Vital signs: Vital Signs Temperature 98.5 F 06/28/21 11:03 Pulse Rate 95 06/28/21 11:03 Respiratory Rate 16 06/28/21 11:03 Blood Pressure 135/84 06/28/21 11:0
== END 2021-06-28 11:51 | disposition home or self-care (01) ==
PROVIDERS: Emergency Provider Nurse Practitioner; PCP Nurse Practitioner
DX: N30.01 Acute cystitis with hematuria (principal); F17.210 Nicotine dependence, cigarettes, uncomplicated; F31.9 Bipolar disorder, unspecified
CPT/HCPCS: 81003; 87086; 87088; 99213; G0463

== ENCOUNTER 2021-07-22 17:00 | Emergency (ER) | payer OTHER, SELFPAY ==
[2021-07-22 17:11] VITALS: BP 129/83; PULSE 92; RESP 18; TEMP 37.2; O2SAT 100
--- NOTE | 2021-07-22 17:31 | ED.URI ---
HPI - URI/Sore Throat General Chief Complaint: Upper Respiratory Infection Stated Complaint: sorethroat Source: patient and RN notes reviewed Limitations: no limitations History of Present Illness HPI Narrative: The unvaccinated patient, is a ex-smoker/nondrinker, presents with 1 week history of sore throat. No fever, cough, earache, hoarseness, trismus; no loss of taste/smell, CP, wheezing/sneezing, S OB. Symptoms are mild symptoms worse eating, better when NPo. Related Data Allergies Allergy/AdvReac Type Severity Reaction Status Date / Time phenazopyridine AdvReac Nausea and Verified 07/22/21 17:42 [From Pyridium] Vomiting Review of Systems Review of Systems: General/Constitutional: No weight loss,fever Eyes: N0: Redness,discharge Ears/Nose/Throat: No: Epistaxis,ear discharge Respiratory: Denies: Hemoptysis Gastrointestinal: No Vomiting, Bleeding-rectal Skin: No Lumps, eruption Neurologic: No Focal Weakness,Sz Hematologic: Denies: Petechiae/Purpura Psychiatric: No: Suicida ideationl All Other Systems: Reviewed and Negative [facility] Past Medical History Medical History Bipolar disorder Kidney stones 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 Scoliosis Surgical History Surgical History History of adenoidectomy History of spinal surgery 02/2020 History of tubal ligation Family History Family History Father Alive and well Mother Alive and well Social History Social History Years smoked: 12 Smoking status: Light tobacco smoker Tobacco type: cigarettes Second hand tobacco smoke exposure: No Additional smoking assessment comments: Quit 4 months ago Alcohol intake: current Substance use: never Additional occupation/education comments: self employed Gender identity (if verbalized by the patient): Female Sexual Orientation (if Verbalized by the Patient): Straight or Heterosexual Comments At time of signature, agree with nursing past medical, surgical, social and family history. There is no relevant family history pertinent to the presenting complaint Exam Narrative: General Appearance: Well appearing, Well nourished EYE: PERRLA, Conjunctiva clear Ears: Auditory canal normal, TM normal Nose: Rhinorrhea, Mucousal erythema Mouth/Throat: MM moist, Uvula midline, Pharyngeal erythema without exudate Neck: Supple, No adenopathy Respiratory: No respiratory distress, Breath sounds equal, Clear to auscultation Cardiovascular: RRR, No JVD Musculoskeletal: Non tender, Normal strength Skin: Warm, Dry Neurological: A&O x3, CN II-XII intact Psychiatric: Normal mood, Normal affect Course Vital Signs Vital signs: Vital Signs Temperature 98.9 F 07/22/21 17:11 Pulse Rate 92 07/22/21 17:11 Respiratory Rate 18 07/22/21 17:11 Blood Pressure 129/83 07/22/21 17:11 Pulse Oximetry 100 07/22/21 17:11 Temperature 98.9 F 07/22/21 17:11 Pulse Rate 92 07/22/21 17:11 Respiratory Rate 18 07/22/21 17:11 Blood Pressure 129/83 07/22/21 17:11 Pulse Oximetry 100 07/22/21 17:11 MDM - URI/Sore Throat Lab Data Labs: Strep Screen Presumptive Negative *(Reference Range: Negative)* Discharge Plan Discharge Clinical Impression: Tonsil pain Patient Disposition: Home, Self-Care Condition: Stable Instructions: Pharyngitis (ED) Prescriptions: New azithromycin 250 mg tablet See Rx Instructions .ROUTE .COMPLEX Qty: 6 RF: 0 lidocaine HCl [Lidocaine Viscous] 2 % solution 5 ml MUCOUS MEM QID PRN (Reason: pain) Qty: 100 RF: 0 Follow-up/Referrals: Hubert,Homer Olson APRN [Primary Care Provider] -
[2021-07-23 19:57] LABS: SARS-CoV-2 RNA PCR Negative
== END 2021-07-22 17:46 | disposition home or self-care (01) ==
PROVIDERS: Emergency Provider Emergency Medicine; PCP Nurse Practitioner
DX: R07.0 Pain in throat (principal); Z20.822 Contact with and (suspected) exposure to COVID-19; M41.9 Scoliosis, unspecified
CPT/HCPCS: 87081; 87880; 99213; C9803; G0463; U0003; U0005

== ENCOUNTER 2021-08-09 10:17 | Emergency (ER) | payer OTHER, SELFPAY ==
[2021-08-09 10:43] VITALS: BP 124/84; PULSE 86; RESP 18; TEMP 36.8; O2SAT 100
--- NOTE | 2021-08-09 10:57 | ED.URI ---
HPI - URI/Sore Throat General Chief Complaint: Upper Respiratory Infection Stated Complaint: Fever,Vomiting,Abdominal Pain,Lower Back Pain Time Seen by Provider: 08/09/21 11:05 Source: patient and RN notes reviewed Mode of arrival: ambulatory Limitations: no limitations History of Present Illness HPI Narrative: Bethany 31-year-old female patient who ambulated into the [facility] today. She complains of low abdominal pain that radiates to her back. Patient rates it a 5 out of 10. Patient states she vomited twice at work today. Patient states she had 100.9 fever and body aches so she took Tylenol. And then vomited. Patient states she was exposed to Covid at work wants to make sure she does not have Covid. Patient states she did have lower back surgery 1 year ago and still continues to have back pain. MD elicited complaint: fever Related Data Allergies Allergy/AdvReac Type Severity Reaction Status Date / Time phenazopyridine AdvReac Nausea and Verified 08/09/21 11:06 [From Pyridium] Vomiting Review of Systems Review of Systems: CONSTITUTIONAL: Denies body aches,+ fever,denies chills, or sweats. EYES: Denies visual changes, redness, or discharge. ENT: Denies rhinorrhea, congestion, sore throat, or otalgia. CARDIOVASCULAR: Denies chest pain, palpitations, or edema. RESPIRATORY: Denies cough or dyspnea. GASTROINTESTINAL: Denies abdominal pain,+ nausea, + vomiting, denies diarrhea. GENITOURINARY: Denies dysuria or hematuria. SKIN: Denies rash, itching, or wounds. MUSCULOSKELETAL: Denies back pain, joint pain, or myalgia. NEUROLOGIC: Denies headache, numbness, tingling, or weakness. PSYCH: Denies depression or anxiety. 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 Scoliosis Surgical History Surgical History History of adenoidectomy History of spinal surgery 02/2020 History of tubal ligation Family History Family History Father Alive and well Mother Alive and well Social History Social History Years smoked: 12 Smoking status: Light tobacco smoker Tobacco type: cigarettes Second hand tobacco smoke exposure: No Additional smoking assessment comments: Quit 4 months ago Alcohol intake: current Substance use: never Additional occupation/education comments: self employed Gender identity (if verbalized by the patient): Female Sexual Orientation (if Verbalized by the Patient): Straight or Heterosexual Comments At time of signature, I have reviewed and agree with nursing past medical, surgical, social and family history unless otherwise noted. Please see nursing chart for further information. There is no relevant family history pertinent to the presenting complaint Exam Narrative: GENERAL: Well-appearing, well-nourished, and in no acute distress. HEAD: Normocephalic, atraumatic. EYES: EOMI. No redness or drainage. Conjunctivae normal. ENT: Mucous membranes pink and moist. Nares clear. No rhinorrhea. TMs normal bilaterally. Throat normal. Uvula midline. NECK: Normal AROM. Supple. No lymphadenopathy. CHEST: No respiratory distress. Clear to auscultation. HEART: Regular rate and rhythm. No murmur appreciated. Normal peripheral pulses. ABDOMEN: Soft, nontender, nondistended, normal active bowel sounds. suprapubic pain with palpation MUSCULOSKELETAL: No bony tenderness. EXTREMITIES: Normal range of motion. No edema. SKIN: Warm, dry, no rash. Capillary refill normal. Normal skin turgor. NEURO: No focal deficits. Alert and oriented x3. Gait steady. PSYCH: Normal affect. No signs of depression or anxiety.
== END 2021-08-09 11:31 | disposition home or self-care (01) ==
PROVIDERS: Emergency Provider Nurse Practitioner Family; PCP Nurse Practitioner
DX: B34.9 Viral infection, unspecified (principal); S39.012A Strain of muscle, fascia and tendon of lower back, initial encounter; X58.XXXA Exposure to other specified factors, initial encounter; Z20.822 Contact with and (suspected) exposure to COVID-19; M41.9 Scoliosis, unspecified; Z87.891 Personal history of nicotine dependence
CPT/HCPCS: 81003; 87086; 87088; 87426; 87804; 99213; C9803; G0463

== ENCOUNTER 2021-08-29 15:34 | Emergency (ER) | payer OTHER, SELFPAY ==
[2021-08-29 16:36] VITALS: BP 125/72; PULSE 70; RESP 18; TEMP 36.6; O2SAT 100
--- NOTE | 2021-08-29 17:01 | ED.FEMALEGU ---
HPI - Female Genitourinary General Chief complaint: Urogenital-Female Stated complaint: uti complaint Time Seen by Provider: 08/29/21 16:56 Source: patient and RN notes reviewed Mode of arrival: ambulatory Limitations: no limitations History of Present Illness HPI Narrative: Patient presents today complaining of 3-day history of dysuria and malodorous urine. Denies fever, chills, hematuria, abdominal pain, or flank pain. She has increased her water intake without relief of symptoms. MD elicited complaint: dysuria Related Data Allergies Allergy/AdvReac Type Severity Reaction Status Date / Time phenazopyridine AdvReac Nausea and Verified 08/29/21 16:43 [From Pyridium] Vomiting Review of Systems Review of Systems: CONSTITUTIONAL: Denies body aches, fever, chills, or sweats. EYES: Denies visual changes, redness, or discharge. ENT: Denies rhinorrhea, congestion, sore throat, or otalgia. CARDIOVASCULAR: Denies chest pain, palpitations, or edema. RESPIRATORY: Denies cough or dyspnea. GASTROINTESTINAL: Denies abdominal pain, nausea, vomiting, or diarrhea. GENITOURINARY: Denies hematuria.+ Dysuria, malodorous urine SKIN: Denies rash, itching, or wounds. MUSCULOSKELETAL: Denies back pain, joint pain, or myalgia. NEUROLOGIC: Denies headache, numbness, tingling, or weakness. PSYCH: Denies depression or anxiety. [facility] Past Medical History Medical History Bipolar disorder Kidney stones 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 Scoliosis Surgical History Surgical History History of adenoidectomy History of spinal surgery 02/2020 History of tubal ligation Family History Family History Father Alive and well Mother Alive and well Social History Social History Years smoked: 12 Smoking status: Light tobacco smoker Tobacco type: cigarettes Second hand tobacco smoke exposure: No Additional smoking assessment comments: Quit 4 months ago Alcohol intake: current Substance use: never Additional occupation/education comments: self employed Gender identity (if verbalized by the patient): Female Sexual Orientation (if Verbalized by the Patient): Straight or Heterosexual Comments At time of signature, I have reviewed and agree with nursing past medical, surgical, social and family history unless otherwise noted. Please see nursing chart for further information. There is no relevant family history pertinent to the presenting complaint Exam Narrative: GENERAL: Well-appearing, well-nourished, and in no acute distress. HEAD: Normocephalic, atraumatic. EYES: EOMI. No redness or drainage. Conjunctivae normal. ENT: Mucous membranes pink and moist. NECK: Normal AROM. CHEST: No respiratory distress. Clear to auscultation. HEART: Regular rate and rhythm. No murmur appreciated. Normal peripheral pulses. ABDOMEN: Soft, nontender, nondistended, normal active bowel sounds.-CVAT MUSCULOSKELETAL: No bony tenderness. EXTREMITIES: Normal range of motion. No edema. SKIN: Warm, dry, no rash. Capillary refill normal. Normal skin turgor. NEURO: No focal deficits. Alert and oriented x3. Gait steady. PSYCH: Normal affect. No signs of depression or anxiety. Course Course Level of Care: [facility] Visit Vital Signs Vital signs: Vital Signs Temperature 98 F 08/29/21 16:36 Pulse Rate 70 08/29/21 16:36 Respiratory Rate 18 08/29/21 16:36 Blood Pressure 125/72 08/29/21 16:36 Pulse Oximetry 100 08/29/21 16:36 Temperature 98 F 08/29/21 16:36 Pulse Rate 70 08/29/21 16:36 Respiratory Rate 18 08/29/21 16:36 Blood Pressure 125/72 08/29/21 16:36 Pulse Oximetry 100 08/29/21 16:36 Reviewed. Pt has been instructed to fol
== END 2021-08-29 17:10 | disposition home or self-care (01) ==
PROVIDERS: Emergency Provider Nurse Practitioner; PCP Nurse Practitioner
DX: N30.00 Acute cystitis without hematuria (principal); F17.210 Nicotine dependence, cigarettes, uncomplicated; M41.9 Scoliosis, unspecified
CPT/HCPCS: 81003; 87077; 87086; 87088; 87186; 99213; G0463

== ENCOUNTER 2022-01-17 19:02 | Emergency (ER) | payer OTHER, SELFPAY ==
--- NOTE | 2022-01-17 19:08 | ED.URI ---
HPI - URI/Sore Throat General Chief Complaint: Upper Respiratory Infection Stated Complaint: headache,fever,sorethroat,congestion Time Seen by Provider: 01/17/22 19:08 History of Present Illness HPI Narrative: Ms. Stratton is a 31-year-old female patient presenting to the clinic today with complaints of headache, fever, sore throat, and congestion x11 days. She reports a lot of sinus pressure, low-grade temperature, sore throat that just began over the last 1 to 2 days, and nasal congestion. She states that she took a COVID test yesterday and it was negative. Denies any known exposure to any flu or strep. Related Data Allergies Allergy/AdvReac Type Severity Reaction Status Date / Time phenazopyridine AdvReac Nausea and Verified 01/17/22 19:14 [From Pyridium] Vomiting Review of Systems Review of Systems: Pertinent positives per HPI. Patient denies any rash, headache, visual changes, dizziness, shortness of breath, chest pain, palpitations, nausea, vomiting, diarrhea, constipation, abdominal pain, or any urinary issues. PMFSH Past Medical History Medical History Bipolar disorder Kidney stones 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 Scoliosis Surgical History Surgical History History of adenoidectomy History of spinal surgery 02/2020 History of tubal ligation Family History Family History Father Alive and well Mother Alive and well Social History Social History Years smoked: 12 Smoking status: Light tobacco smoker Tobacco type: cigarettes Second hand tobacco smoke exposure: No Additional smoking assessment comments: Quit 4 months ago Alcohol intake: current Substance use: never Additional occupation/education comments: self employed Gender identity (if verbalized by the patient): Female Sexual Orientation (if Verbalized by the Patient): Straight or Heterosexual Exam Narrative: General: Well-developed, well nourished, in no apparent distress Head: Normocephalic, atraumatic Eyes: Pupils equally round and reactive to light bilaterally, EOM intact, sclera and conjunctive clear, no discharge, lids normal Ears: TMs intact and clear, ear canals clear, no drainage, grossly hearing normal. Nose: Nares patent, no discharge, no inflammation, no sinus tenderness. Mouth: Oropharynx without lesions or masses, good dentition, MMM. Neck: Supple, trachea midline, no enlargement of anterior or posterior cervical nodes, no thyroid masses or goiter palpable. Cardio: Regular rate and rhythm, s1 and s2 normal, no murmur appreciated. Resp: Clear to auscultation bilaterally anteriorly and posteriorly, no rhonchi, rales, wheezing or rubs Course Course Emergency Course: This electronic medical record was dictated using voice recognition software and may contain grammatical errors. Level of Care: Express [facility] Visit Vital Signs Vital signs: Vital signs reviewed MDM - URI/Sore Throat MDM Narrative Medical decision making narrative: At the time of visit patient is resting comfortably on the exam table. She reports having sore throat, runny nose, nasal congestion, low-grade temp and sinus headaches. Patient has severe swelling in the left nare. I suspect the patient has acute bacterial rhinosinusitis and will treat with a course of Augmentin. Other supportive measures were discussed with the patient she voiced understanding of discharge instructions. Differential Diagnosis Differential diagnosis: Likely upper respiratory infection, otitis media, sinusitis, viral infection, bronchitis, influenza, pharyngitis and other (COVID) Discharge Plan Discharge Clinical Impression: Acute bacterial rhinosinusitis Patient Disposition: Home, Se
[2022-01-17 19:11] VITALS: BP 139/81; PULSE 103; RESP 18; TEMP 37.1; O2SAT 100
== END 2022-01-17 19:20 | disposition home or self-care (01) ==
PROVIDERS: Emergency Provider Nurse Practitioner Family; PCP Nurse Practitioner
DX: J01.90 Acute sinusitis, unspecified (principal); F17.210 Nicotine dependence, cigarettes, uncomplicated; M41.9 Scoliosis, unspecified
CPT/HCPCS: 99213; G0463

== ENCOUNTER 2022-03-14 11:52 | Emergency (ER) | payer OTHER, SELFPAY ==
--- NOTE | 2022-03-14 12:01 | ED.SYNCOPE ---
HPI - Syncope General Chief Complaint: Syncope Stated Complaint: syncope Time Seen by Provider: 03/14/22 12:20 Source: patient Mode of arrival: ambulatory Limitations: no limitations History of Present Illness HPI narrative: Ms. Stratton is a 31-year-old female patient presenting to the clinic today with complaints of passing out. She reports that she has passed out 4 times this month. States that she has gotten a Pfizer COVID vaccination on the 17 of February and symptoms began 1 week after vaccination. Reports that she is fatigued, nauseated, and dizzy. Last episode was at work at 10:00 this morning. She was checked out by the nurse at work and her blood pressure was elevated and heart rate was elevated at that time. She denies any chest pain or shortness of breath. States that she did eat 2 waffles this morning. No history of hypoglycemia and has not changed her diet. Related Data Allergies Allergy/AdvReac Type Severity Reaction Status Date / Time phenazopyridine AdvReac Nausea and Verified 03/14/22 12:44 [From Pyridium] Vomiting Review of Systems Review of Systems: Pertinent positives per HPI. Patient denies any fever, chills, rash, headache, visual changes, dizziness, cough, runny nose, sore throat, shortness of breath, chest pain, palpitations, nausea, vomiting, diarrhea, constipation, abdominal pain, or any urinary issues. [facility] Past Medical History Medical History Bipolar disorder Kidney stones 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 Scoliosis Surgical History Surgical History History of adenoidectomy History of spinal surgery 02/2020 History of tubal ligation Family History Family History Father Alive and well Mother Alive and well Social History Social History Years smoked: 12 Smoking status: Light tobacco smoker Tobacco type: cigarettes Second hand tobacco smoke exposure: No Additional smoking assessment comments: Quit 4 months ago Alcohol intake: current Substance use: never Additional occupation/education comments: self employed Gender identity (if verbalized by the patient): Female Sexual Orientation (if Verbalized by the Patient): Straight or Heterosexual Comments At the time of my signature, I reviewed and agree with the nursing past medical, surgical, social, and family history. There is no relevant family history pertinent to the patient complaint. Exam Narrative: General: Well-developed, well nourished, in no apparent distress Head: Normocephalic, atraumatic Eyes: Pupils equally round and reactive to light bilaterally, EOM intact, sclera and conjunctive clear, no discharge, lids normal Ears: TMs intact and clear, ear canals clear, no drainage, grossly hearing normal. Nose: Nares patent, clear discharge, mild inflammation, no sinus tenderness. Mouth: Oropharynx without lesions or masses, good dentition, MMM. Neck: Supple, trachea midline, no enlargement of anterior or posterior cervical nodes, no thyroid masses or goiter palpable. Cardio: Regular rate and rhythm, s1 and s2 normal, no murmur appreciated. Resp: Clear to auscultation bilaterally anteriorly and posteriorly, no rhonchi, rales, wheezing or rubs Course Course Emergency Course: Portions of this record may have been created with voice recognition software. Level of Care: Express [facility] Visit Vital Signs Vital signs: Vital signs reviewed MDM - Syncope MDM Narrative Medical decision making narrative: At the time of visit patient is resting comfortably on the exam table. UA was obtained and shows trace of leukocytes. UA Preg negative in the clinic. We will send urinalysis for culture. Specific gravity is 1.025. Orthostatic
[2022-03-14 12:15] VITALS: BP 145/87; PULSE 79; RESP 18; TEMP 32.5; O2SAT 100
[2022-03-14 12:35] VITALS: BP 127/80; PULSE 76
[2022-03-14 12:43] LABS: Glucose Point of Care 76 mg/dl (65-105)
--- NOTE | 2022-03-14 12:44 | ECG_ITS ---
Measurements Intervals [place] Rate: 69 P: 70 LA: 123 QRS: 54 QRSD: 100 T: 56 QT: 405 QTc: 435 Interpretive Statements SINUS RHYTHM WITH SINUS ARRHYTHMIA RSR' IN V1 OR V2, CONSIDER RIGHT VENTRICULAR HYPERTROPHY OR RIGHT VCD BORDERLINE ECG Electronically Signed On 03-14-2022 15:32:38 CDT by Martir Elliott D.O.
[2022-03-14 12:48] VITALS: BP 144/94; BP 148/97; PULSE 80; PULSE 84
== END 2022-03-14 13:08 | disposition home or self-care (01) ==
PROVIDERS: Emergency Provider Nurse Practitioner Family; PCP Nurse Practitioner
DX: R42 Dizziness and giddiness (principal); R11.0 Nausea; R55 Syncope and collapse; Z87.891 Personal history of nicotine dependence; M41.9 Scoliosis, unspecified
CPT/HCPCS: 81003; 82948; 87086; 87088; 93005; 99213; G0463

== ENCOUNTER 2022-04-23 14:32 | Emergency (ER) | payer OTHER, SELFPAY ==
[2022-04-23 14:41] VITALS: BP 114/74; PULSE 89; RESP 18; TEMP 36.9; O2SAT 100
--- NOTE | 2022-04-23 15:43 | ED.FEMALEGU ---
HPI - Female Genitourinary General Chief complaint: Urogenital-Female Stated complaint: Female Urogenital Time Seen by Provider: 04/23/22 14:50 Source: patient Mode of arrival: ambulatory Limitations: no limitations History of Present Illness HPI Narrative: Ms. Stratton is a 32-year-old female patient presenting to the clinic today with complaints of dysuria, low urine output, and vaginal discharge. She reports of dysuria and low urine output has been over the last 3 days. States that the vaginal discharge has been yellow discharge and is been ongoing for 1 week. She reports that she has been in a monogamous relationship with her boyfriend. She has not had any recent STI testing and would like to be tested today. She does have a appointment with her SEARCH COORDINATOR next month for her annual [employer] [facility] exam. She reports that the vaginal discharge does have a foul odor. She denies any back pain or abdominal pain. She denies any fever or chills. Related Data Allergies Allergy/AdvReac Type Severity Reaction Status Date / Time phenazopyridine AdvReac Nausea and Verified 04/23/22 14:38 [From Pyridium] Vomiting Review of Systems Review of Systems: Pertinent positives per HPI. Patient denies any fever, chills, rash, headache, visual changes, dizziness, cough, runny nose, sore throat, shortness of breath, chest pain, palpitations, nausea, vomiting, diarrhea, constipation, abdominal pain, or any urinary issues. [facility] Past Medical History Medical History Bipolar disorder Kidney stones 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 Scoliosis Surgical History Surgical History History of adenoidectomy History of spinal surgery 02/2020 History of tubal ligation Family History Family History Father Alive and well Mother Alive and well Social History Social History Years smoked: 12 Smoking status: Light tobacco smoker Tobacco type: cigarettes Second hand tobacco smoke exposure: No Additional smoking assessment comments: Quit 4 months ago Alcohol intake: current Substance use: never Additional occupation/education comments: self employed Gender identity (if verbalized by the patient): Female Sexual Orientation (if Verbalized by the Patient): Straight or Heterosexual Comments At the time of my signature, I reviewed and agree with the nursing past medical, surgical, social, and family history. There is no relevant family history pertinent to the patient complaint. Exam Narrative: General: Well-developed, well nourished, in no apparent distress Head: Normocephalic, atraumatic. Cardio: Regular rate and rhythm, s1 and s2 normal, no murmur appreciated. Resp: Clear to auscultation bilaterally, no rhonchi, rales, wheezing or rubs. Abdomen: Soft, pliable, bowel sounds present in all quadrants, non-tender to palpation, no CVAT tenderness. : Pelvic exam performed with Elvira RN at bedside. Verbal consent obtained from patient. Normal external female genitalia without lesions or masses, Urinary meatus: patent without discharge, no lesions or masses Vagina: No lesions or masses, white discharge into the pelvic vault Cervix: pink and friable without mass, lesions, discharge, mildly tender to palpation Adnexa: without palpable mass or tenderness. Course Course Emergency Course: Portions of this record may have been created with voice recognition software. Level of Care: [facility] Visit Vital Signs Vital signs: Vital Signs Temperature 36.9 C 04/23/22 14:41 Pulse Rate 89 04/23/22 14:41 Respiratory Rate 18 04/23/22 14:41 Blood Pressure 114/74 04/23/22 14:41 Pulse Oximetry 100 04/23/22 14:41 Oxygen Delivery Room Air 04/23/22 14:41
== END 2022-04-23 15:55 | disposition home or self-care (01) ==
PROVIDERS: Emergency Provider Nurse Practitioner Family; PCP Nurse Practitioner
DX: N76.0 Acute vaginitis (principal); Z87.891 Personal history of nicotine dependence
CPT/HCPCS: 81003; 87070; 87086; 87088; 87491; 87591; 87661; 99214; G0463

== ENCOUNTER 2022-06-27 18:04 | Emergency (ER) | payer OTHER, SELFPAY ==
--- NOTE | 2022-06-27 18:10 | ED.FEMALEGU ---
HPI - Female Genitourinary General Chief complaint: Urogenital-Female Stated complaint: Possible UTI Time Seen by Provider: 06/27/22 18:20 Source: patient and RN notes reviewed Mode of arrival: ambulatory Limitations: no limitations History of Present Illness HPI Narrative: 32-year-old female presents with concern for your tract infection use she reports several day history of dysuria, frequency, urgency, suprapubic pressure. She denies concern for sexually transmitted infection. She denies abnormal vaginal discharge. She reports foul-smelling urine. She denies back pain, abdominal pain, fever, chills, nausea MD elicited complaint: UTI Related Data Allergies Allergy/AdvReac Type Severity Reaction Status Date / Time phenazopyridine AdvReac Nausea and Verified 06/27/22 18:22 [From Pyridium] Vomiting Review of Systems Review of Systems: CONSTITUTIONAL: Denies malaise, chills, sweats, or fever. CARDIOVASCULAR: Denies chest pain, palpitations, or edema. RESPIRATORY: Denies cough or dyspnea. GASTROINTESTINAL: Denies abdominal pain, nausea, vomiting, diarrhea GENITOURINARY: Reports dysuria, frequency, urgency, suprapubic pressure. Denies flank pain or hematuria. SKIN: Denies rash or itching. MUSCULOSKELETAL: Denies back pain or myalgia. 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 Scoliosis Surgical History Surgical History History of adenoidectomy History of spinal surgery 02/2020 History of tubal ligation Family History Family History Father Alive and well Mother Alive and well Social History Social History Years smoked: 12 Smoking status: Light tobacco smoker Tobacco type: cigarettes Second hand tobacco smoke exposure: No Additional smoking assessment comments: Quit 4 months ago Alcohol intake: current Substance use: never Additional occupation/education comments: self employed Gender identity (if verbalized by the patient): Female Sexual Orientation (if Verbalized by the Patient): Straight or Heterosexual Comments At time of signature, agree with nursing past medical, surgical, social and family history. There is no relevant family history pertinent to the presenting complaint Exam Narrative: GENERAL: Well-appearing, well-nourished, and in no acute distress. HEAD: Normocephalic. EYES: PERRLA, conjunctivae clear. NECK: Supple. No lymphadenopathy CHEST: Clear to auscultation. No respiratory distress. HEART: Regular rate and rhythm. ABDOMEN: Soft, nontender upon palpation, nondistended, normal active bowel sounds, no palpable or pulsatile masses, no guarding. No CVA tenderness SKIN: Warm, dry, no rash. NEURO: Alert and oriented x3. PSYCH: Normal mood and affect Course Course Emergency Course: Patient is aware of diagnosis, understands and agrees to treatment plan. Anticipatory guidance given. Patient agrees to follow-up as directed and is aware of reasons to seek care at the emergency department. Portions of this record may have been created with voice recognition software Level of Care: Express [facility] Visit Vital Signs Vital signs: Reviewed. MDM - Female Genitourinary MDM Narrative Medical decision making narrative: Exam findings and UA show no acute concerns or changes; patient is non-toxic appearing and is in no distress. Patient is appropriate for outpatient treatment and follow-up. Differential Diagnosis Differential diagnosis: Likely urinary tract infection and cystitis Critical Care Time Critical Care Time Critical Care Time: No Discharge Plan
[2022-06-27 18:11] VITALS: BP 114/60; PULSE 87; RESP 18; TEMP 36.6; O2SAT 100
== END 2022-06-27 18:30 | disposition home or self-care (01) ==
PROVIDERS: Emergency Provider Nurse Practitioner; PCP Nurse Practitioner
DX: R30.0 Dysuria (principal); R35.0 Frequency of micturition; R39.15 Urgency of urination; F17.210 Nicotine dependence, cigarettes, uncomplicated
CPT/HCPCS: 81003; 87086; 87088; 99213; G0463

== ENCOUNTER 2022-08-09 10:53 | Emergency (ER) | payer OTHER, SELFPAY ==
[2022-08-09 11:30] VITALS: BP 126/79; PULSE 84; RESP 18; TEMP 36.8; O2SAT 100
--- NOTE | 2022-08-09 11:58 | ED.URI ---
HPI - URI/Sore Throat General Chief Complaint: Upper Respiratory Infection Stated Complaint: vomiting,fever,cough,runny nose Time Seen by Provider: 08/09/22 11:58 Source: patient Mode of arrival: ambulatory Limitations: no limitations History of Present Illness HPI Narrative: 32-year-old female presents with complaint of symptoms for 10 days. Reports runny nose, nasal congestion, sinus pressure, sore throat, postnasal drainage. Reports fever for the past 3 days. Denies nausea vomiting diarrhea. No chest pain or shortness of breath. Denies cough. Taking [id number] sinus medication to treat her symptoms. Is concerned that she has the flu or developed a sinus infection. All systems reviewed and negative except as noted above. Related Data Home Medications Medication Instructions Recorded Confirmed cyclobenzaprine 10 mg tablet 100 mg PO DAILY 08/09/22 08/09/22 hydroxyzine HCl 25 mg tablet 25 mg PO BID PRN Anxiety 08/09/22 08/09/22 Allergies Allergy/AdvReac Type Severity Reaction Status Date / Time phenazopyridine AdvReac Nausea and Verified 08/09/22 11:40 [From Pyridium] Vomiting Review of Systems Review of Systems: CONSTITUTIONAL: reports fever, chills, or sweats. EYES: Denies visual changes, redness, or discharge. ENT: Reports rhinorrhea, congestion, sore throat, sinus pressure. Denies otalgia. CARDIOVASCULAR: Denies chest pain, palpitations, or edema. RESPIRATORY: Denies cough or dyspnea. GASTROINTESTINAL: Denies abdominal pain, nausea, vomiting, or diarrhea. GENITOURINARY: Denies dysuria or hematuria. SKIN: Denies rash or itching. MUSCULOSKELETAL: Denies back pain, joint pain, or myalgia. NEUROLOGIC: Denies headache, numbness, or weakness. PSYCHIATRIC: Denies anxiety or depression. All other systems reviewed are negative, except as documented in HPI. [facility] Past Medical History Medical History Bipolar disorder Kidney stones 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 Scoliosis Surgical History Surgical History History of adenoidectomy History of spinal surgery 02/2020 History of tubal ligation Family History Family History Father Alive and well Mother Alive and well Social History Social History Years smoked: 12 Smoking status: Light tobacco smoker Tobacco type: cigarettes Second hand tobacco smoke exposure: No Additional smoking assessment comments: Quit 4 months ago Alcohol intake: current Substance use: never Additional occupation/education comments: self employed Gender identity (if verbalized by the patient): Female Sexual Orientation (if Verbalized by the Patient): Straight or Heterosexual Comments At time of signature, agree with nursing past medical, surgical, social and family history. There is no relevant family history pertinent to the presenting complaint. Exam Narrative: GENERAL: This is a well-nourished, well-developed patient, in no apparent distress. HEAD: normocephalic, atraumatic. EYES: PERRL. Sclera clear/white. Vision is grossly intact. EARS: External ears normal, auditory canals clear and without drainage, fluid bilateral TMs. NOSE: External nose normal with Yellow nasal drainage, swelling and erythema to nares. bilateral maxillary sinus tenderness. THROAT: Mucous membranes moist, Erythema to posterior pharynx with postnasal drainage. NECK: Neck supple, non-tender without lymphadenopathy, masses or thyromegaly. CARDIOVASCULAR: Regular rate and rhythm without murmurs, gallops, or rubs. RESPIRATORY: Clear to auscultation. Breath sounds equal bilaterally. No wheezes, rales, or rhonchi. SKIN: warm, Dry, intact with no suspicious lesions or rash, good texture and turgo
== END 2022-08-09 12:11 | disposition home or self-care (01) ==
PROVIDERS: Emergency Provider Nurse Practitioner Family; PCP Nurse Practitioner
DX: J01.90 Acute sinusitis, unspecified (principal); Z87.891 Personal history of nicotine dependence; M41.9 Scoliosis, unspecified
CPT/HCPCS: 87081; 87804; 99213; G0463

== ENCOUNTER 2022-09-20 11:30 | Emergency (ER) | payer OTHER, SELFPAY ==
[2022-09-20 11:46] VITALS: BP 143/93; PULSE 100; RESP 20; TEMP 37.1; O2SAT 98
--- NOTE | 2022-09-20 11:48 | ED.URI ---
HPI - URI/Sore Throat General Chief Complaint: Upper Respiratory Infection Stated Complaint: sorethroat Time Seen by Provider: 09/20/22 11:48 Source: patient Mode of arrival: ambulatory Limitations: no limitations History of Present Illness HPI Narrative: 32 yo F presents with c/o nasal congestion, PND, sore throat for 10 days. Afebrile. Not taking any OTC meds to treat symptoms. dont understand why throat is not getting better . Denies N/V/D. All systems reviewed and negative except as noted above. Related Data Allergies Allergy/AdvReac Type Severity Reaction Status Date / Time phenazopyridine AdvReac Nausea and Verified 08/09/22 11:40 [From Pyridium] Vomiting Review of Systems Review of Systems: CONSTITUTIONAL: Denies fever, chills, or sweats. EYES: Denies visual changes, redness, or discharge. ENT: Reports rhinorrhea, congestion, sore throat. Denies otalgia. CARDIOVASCULAR: Denies chest pain, palpitations, or edema. RESPIRATORY: Denies cough or dyspnea. GASTROINTESTINAL: Denies abdominal pain, nausea, vomiting, or diarrhea. GENITOURINARY: Denies dysuria or hematuria. SKIN: Denies rash or itching. MUSCULOSKELETAL: Denies back pain, joint pain, or myalgia. NEUROLOGIC: Denies headache, numbness, or weakness. PSYCHIATRIC: Denies anxiety or depression. All other systems reviewed are negative, except as documented in HPI. [facility] Past Medical History Medical History Bipolar disorder Kidney stones 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 Scoliosis Surgical History Surgical History History of adenoidectomy History of spinal surgery 02/2020 History of tubal ligation Family History Family History Father Alive and well Mother Alive and well Social History Social History Years smoked: 12 Smoking status: Light tobacco smoker Tobacco type: cigarettes Second hand tobacco smoke exposure: No Additional smoking assessment comments: Quit 4 months ago Alcohol intake: current Substance use: never Living arrangements: with family Occupation/Education: occupation Additional occupation/education comments: self employed Gender identity (if verbalized by the patient): Female Sexual Orientation (if Verbalized by the Patient): Straight or Heterosexual Comments At time of signature, agree with nursing past medical, surgical, social and family history. There is no relevant family history pertinent to the presenting complaint. Exam Narrative: GENERAL: This is a well-nourished, well-developed patient, in no apparent distress. HEAD: normocephalic, atraumatic. EYES: PERRL. Sclera clear/white. Vision is grossly intact. EARS: External ears normal, auditory canals clear and without drainage, TMs normal without perforation. Hearing grossly intact. NOSE: External nose normal with Nasal drainage with erythema to both nares. No sinus tenderness. THROAT: Mucous membranes moist, erythema, postnasal drainage. NECK: Neck supple, non-tender without lymphadenopathy, masses or thyromegaly. CARDIOVASCULAR: Regular rate and rhythm without murmurs, gallops, or rubs. RESPIRATORY: Clear to auscultation. Breath sounds equal bilaterally. No wheezes, rales, or rhonchi. SKIN: warm, Dry, intact with no suspicious lesions or rash, good texture and turgor. NEURO: awake, alert, and oriented to person, place and time. There were no obvious focal neurologic abnormalities. EXTREMITIES: No joint tenderness, effusion, or edema noted. Course Course Level of Care: Express Care Visit Vital Signs Vital signs: Vital Signs Temperature 37.1 C 09/20/22 11:46 Pulse Rate 100 09/20/22 11:46 Respiratory Rate 20 09/20/22 11:46 Blood Pressure 143/93 H 01
== END 2022-09-20 12:05 | disposition home or self-care (01) ==
PROVIDERS: Emergency Provider Nurse Practitioner Family; PCP Nurse Practitioner
DX: J02.9 Acute pharyngitis, unspecified (principal); Z87.891 Personal history of nicotine dependence; M41.9 Scoliosis, unspecified
CPT/HCPCS: 87081; 87880; 99213; G0463

== ENCOUNTER 2022-11-11 13:16 | Emergency (ER) | payer OTHER, SELFPAY ==
[2022-11-11 13:23] VITALS: BP 119/71; PULSE 86; RESP 16; TEMP 36.6; O2SAT 100
--- NOTE | 2022-11-11 13:29 | ED.GENADULT ---
HPI - General Adult General Chief complaint: Upper Respiratory Infection Stated complaint: Congestion,Runny Nose,Cough Time Seen by Provider: 11/11/22 13:29 Source: patient Mode of arrival: ambulatory Limitations: no limitations History of Present Illness HPI narrative: 32-year-old female patient presents to the [facility] with complaints of a sore throat, pain with talking for the past 6 days. Patient states she was seen in the ER last week and was told she had costochondritis and they treated her with some muscle relaxants. Denies any fevers, body aches or chills. Related Data Allergies Allergy/AdvReac Type Severity Reaction Status Date / Time phenazopyridine AdvReac Nausea and Verified 11/11/22 13:35 [From Pyridium] Vomiting Review of Systems Review of Systems: CONSTITUTIONAL: Denies fever, chills, or sweats. EYES: Denies visual changes, redness, or discharge. ENT: Denies rhinorrhea, congestion, Positive sore throat, denies otalgia. CARDIOVASCULAR: Denies chest pain, palpitations, or edema. RESPIRATORY: Denies cough or dyspnea. GASTROINTESTINAL: Denies abdominal pain, nausea, vomiting, or diarrhea. GENITOURINARY: Denies dysuria or hematuria. SKIN: Denies rash or itching. MUSCULOSKELETAL: Denies back pain, joint pain, or myalgia. NEUROLOGIC: Denies headache, numbness, or weakness. PSYCHIATRIC: Denies anxiety or depression. [facility] Past Medical History Medical History Bipolar disorder Kidney stones 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 Scoliosis Surgical History Surgical History History of adenoidectomy History of spinal surgery 02/2020 History of tubal ligation Family History Family History Father Alive and well Mother Alive and well Social History Social History Years smoked: 12 Smoking status: Light tobacco smoker Tobacco type: cigarettes Second hand tobacco smoke exposure: No Additional smoking assessment comments: Quit 4 months ago Alcohol intake: current Substance use: never Living arrangements: with family Occupation/Education: occupation Additional occupation/education comments: self employed Gender identity (if verbalized by the patient): Female Sexual Orientation (if Verbalized by the Patient): Straight or Heterosexual Comments at the time of my signature I agree with nursing past medical history, surgical, social, and family history. There is no relevant family history pertinent to the presenting complaint. Exam Narrative: GENERAL: Well-appearing, well-nourished, and in no acute distress. HEAD: Normocephalic, atraumatic. EYES: PERRLA and EOMI. ENT: Nares with erythema edema noted bilaterally, no rhinorrhea or epistaxis. Mucous membranes moist. posterior pharynx no erythema, tonsillar enlargement, exudates or lesions present. Bilateral TMs are clear no erythema or foreign bodies the canal. NECK: Supple. No lymphadenopathy CHEST: Clear to auscultation. No respiratory distress. HEART: Regular rate and rhythm. No murmur heard. Normal peripheral pulses. ABDOMEN: Soft, nontender, nondistended, normal active bowel sounds. EXTREMITIES: Normal range of motion. No edema. SKIN: Warm, dry, no rash. NEURO: No focal deficits. Alert and oriented x3. Course Course Level of Care: Express Care Visit Vital Signs Vital signs: Vital Signs Temperature 36.6 C 11/11/22 13:23 Pulse Rate 86 11/11/22 13:23 Respiratory Rate 16 11/11/22 13:23 Blood Pressure 119/71 11/11/22 13:23 Pulse Oximetry 100 11/11/22 13:23 Oxygen Delivery Room Air 11/11/22 13:23 Temperature 36.6 C 11/11/22 13:23 Pulse Rate 86 11/11/22 13:23 Respiratory Rate 16 11/11/22 13:23 Blood Pressure 119/71 11/11/22 13:23 P
== END 2022-11-11 14:02 | disposition home or self-care (01) ==
PROVIDERS: Emergency Provider Nurse Practitioner Family; PCP Nurse Practitioner
DX: J04.0 Acute laryngitis (principal); J02.9 Acute pharyngitis, unspecified; Z87.891 Personal history of nicotine dependence; M41.9 Scoliosis, unspecified
CPT/HCPCS: 87081; 87880; 99213; G0463

== ENCOUNTER 2023-02-27 10:45 | Emergency (ER) | payer OTHER, SELFPAY ==
[2023-02-27 10:54] VITALS: BP 118/75; PULSE 67; RESP 18; TEMP 36.4; O2SAT 100
--- NOTE | 2023-02-27 11:19 | ED.FEMALEGU ---
HPI - Female Genitourinary General Chief complaint: Urogenital-Female Stated complaint: Female Urogenital Time Seen by Provider: 02/27/23 11:00 Source: patient Mode of arrival: ambulatory Limitations: no limitations History of Present Illness HPI Narrative: Bethany is a 32-year-old female patient presenting to clinic today with complaints of possible urinary tract infection. She reports she is having some burning with urination and feeling of having incomplete emptying. She also reports some lower abdominal pain and some back pain. Denies any fever or chills. Symptoms just began yesterday. Related Data Allergies Allergy/AdvReac Type Severity Reaction Status Date / Time phenazopyridine AdvReac Nausea and Verified 11/11/22 13:35 [From Pyridium] Vomiting Review of Systems Review of Systems: Pertinent positives per HPI. Patient denies any fever, chills, rash, headache, visual changes, dizziness, cough, runny nose, sore throat, shortness of breath, chest pain, palpitations, nausea, vomiting, diarrhea, constipation. [facility] Past Medical History Medical History Bipolar disorder Kidney stones 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 Scoliosis Surgical History Surgical History History of adenoidectomy History of spinal surgery 02/2020 History of tubal ligation Family History Family History Father Alive and well Mother Alive and well Social History Social History Years smoked: 12 Smoking status: Light tobacco smoker Tobacco type: cigarettes Second hand tobacco smoke exposure: No Additional smoking assessment comments: Quit 4 months ago Alcohol intake: current Substance use: never Living arrangements: with family Occupation/Education: occupation Additional occupation/education comments: self employed Gender identity (if verbalized by the patient): Female Sexual Orientation (if Verbalized by the Patient): Straight or Heterosexual Comments At the time of my signature, I reviewed and agree with the nursing past medical, surgical, social, and family history. There is no relevant family history pertinent to the patient complaint. Exam Narrative: General: Well-developed, well nourished, in no apparent distress. Head: Normocephalic, atraumatic. Cardio: Regular rate and rhythm, s1 and s2 normal, no murmur appreciated. Resp: Clear to auscultation bilaterally, no rhonchi, rales, wheezing or rubs. Abdomen: Soft, pliable, bowel sounds present in all quadrants, tender to palpation over the lower abdomen, no organomegly, no CVAT tenderness. Course Course Emergency Course: Portions of this record may have been created with voice recognition software. Level of Care: Express Care Visit Vital Signs Vital signs: Vital Signs Temperature 36.4 C 02/27/23 10:54 Pulse Rate 67 02/27/23 10:54 Respiratory Rate 18 02/27/23 10:54 Blood Pressure 118/75 02/27/23 10:54 Pulse Oximetry 100 02/27/23 10:54 Oxygen Delivery Room Air 02/27/23 10:54 Temperature 36.4 C 02/27/23 10:54 Pulse Rate 67 02/27/23 10:54 Respiratory Rate 18 02/27/23 10:54 Blood Pressure 118/75 02/27/23 10:54 Pulse Oximetry 100 02/27/23 10:54 Oxygen Delivery Room Air 02/27/23 10:54 Vital signs reviewed MDM - Female Genitourinary MDM Narrative Medical decision making narrative: At the time of visit patient is resting comfortably on the exam table. Urinalysis obtained shows 1+ leukocyte a.m. trace of blood. Will place the patient on Macrobid. Supportive measures were discussed with the patient she voiced understanding discharge instructions and agrees to treatment plan. She reports that she has had Pyridium before without any issues. D
== END 2023-02-27 11:25 | disposition home or self-care (01) ==
PROVIDERS: Emergency Provider Nurse Practitioner Family; PCP Nurse Practitioner
DX: N39.0 Urinary tract infection, site not specified (principal); M41.9 Scoliosis, unspecified
CPT/HCPCS: 81003; 87086; 99213; G0463

== ENCOUNTER 2023-05-04 13:55 | Emergency (ER) | payer OTHER, SELFPAY ==
[2023-05-04 14:06] VITALS: BP 122/84; PULSE 78; RESP 18; TEMP 36.5; O2SAT 100
--- NOTE | 2023-05-04 14:21 | ED.GENADULT ---
HPI - General Adult General Chief complaint: Skin/Abscess/Foreign Body Stated complaint: RT Hand Burn Time Seen by Provider: 05/04/23 14:28 Source: patient, RN notes reviewed and old records reviewed Mode of arrival: ambulatory Limitations: no limitations History of Present Illness HPI narrative: 33-year-old female presents to the [facility] with a burn to the right dorsal aspect of hand to coffee. No redness, inflammation. Patient reports that she had small blisters. Had been applying a a [id number]-foccunk burn cream Unknown last tetanus per patient, per medical record she had a tetanus updated on August 17, 2020, 2 and half years ago. Related Data Home Medications Medication Instructions Recorded Confirmed tizanidine 4 mg capsule 4 mg PO TID PRN Muscle Spasm 05/02/23 05/04/23 Allergies Allergy/AdvReac Type Severity Reaction Status Date / Time phenazopyridine AdvReac Intermediate Nausea and Verified 05/04/23 14:18 [From Pyridium] Vomiting Review of Systems Review of Systems: All systems reviewed & are unremarkable except as noted in HPI and below Constitutional: Constitutional: Reports no additional constitutional complaints Eyes: Eyes: Reports no additional eye complaints ENT: Reports system reviewed and no additional complaints, except as documented Cardiovascular: Cardiovascular: Reports no additional cardiovascular complaints, Denies chest pain and Denies dyspnea Respiratory: Respiratory: Reports no additional respiratory complaints, Denies chest congestion, Denies cough and Denies dyspnea Gastrointestinal: Gastrointestinal: Reports no additional gastrointestinal complaints, Denies abdominal pain, Denies nausea and Denies vomiting Musculoskeletal: Musculoskeletal: Reports no additional musculoskeletal complaints Integumentary/Breasts: Skin/Breast: Reports as per HPI Neurologic: Reports system reviewed and no additional complaints, except as documented Psychiatric: Psychiatric: Reports no additional psychiatric complaints Allergic/Immunologic: Allergic/Immunologic: Reports no additional allergic/immunologic complaints [facility] Past Medical History Medical History Bipolar disorder Kidney stones 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 Scoliosis Surgical History Surgical History History of adenoidectomy History of spinal surgery 02/2020 History of tubal ligation Family History Family History Father Alive and well Mother Alive and well Social History Social History Years smoked: 12 Smoking status: Light tobacco smoker Tobacco type: e-cigarettes/vaping Second hand tobacco smoke exposure: No Additional smoking assessment comments: Quit 4 months ago Alcohol intake: current Substance use: never Lack of Transportation: No Lack of Food: Never True Current Housing: I Have Housing Concerned About Future Housing: No Difficulty Paying Gas/Electric Bills: No Difficulty Paying for Meds: No Currently Unemployed: No Education: Associate Degree Difficulty w/ Childcare or Family Care: No Living arrangements: with family Occupation/Education: occupation Additional occupation/education comments: self employed Gender identity (if verbalized by the patient): Female Sexual Orientation (if Verbalized by the Patient): Straight or Heterosexual Comments At the time of my signature, I reviewed and agree with the nursing past medical, surgical, social, and family history. There is no relevant family history pertinent to the patient complaint. Exam Const: General: cooperative, healthy appearing, comfortable, no acute distress, well developed, alert and well nourished Nutritional Appearance: well nourished Orientation/consciou
== END 2023-05-04 14:40 | disposition home or self-care (01) ==
PROVIDERS: Emergency Provider Nurse Practitioner; PCP Nurse Practitioner
DX: T23.061A Burn of unspecified degree of back of right hand, initial encounter (principal); M41.9 Scoliosis, unspecified
CPT/HCPCS: 99213; G0463

== ENCOUNTER 2023-06-15 10:29 | Emergency (ER) | payer OTHER, SELFPAY ==
--- NOTE | 2023-06-15 10:32 | ED.ABDPAIN ---
HPI - Abdominal Pain General Chief Complaint: Urogenital-Female Stated Complaint: Abdominal Pain and Nausea Time Seen by Provider: 06/15/23 10:31 Source: patient Mode of arrival: ambulatory Limitations: no limitations History of Present Illness HPI narrative: Rashawn is a 33-year-old female patient presenting to the clinic today with complaints of abdominal pain, pelvic pain, vaginal discharge, and nausea x 1 day. She reports she had to leave work today due to the pain. Has taken ibuprofen for pain. Reports that vaginal discharge is cloudy but there is no odor. Last intercourse was 1 week ago and not painful at that time. History of HPV. Is scheduled for a LEEP procedure on June 29 and patient seems to be anxious about this. Reports pain directly to her cervix. Rating pain 7 at 10. She denies any urinary symptoms, fever, or chills. Also reporting some nausea. Last menstrual period was May 24, 2023. History of BV, chlamydia, and HPV. No concern for STI per patient and she is been in a monogamous relationship for several years. Related Data Home Medications Medication Instructions Recorded Confirmed tizanidine 4 mg capsule 4 mg PO TID PRN Muscle Spasm 05/02/23 06/15/23 ibuprofen 800 mg tablet 800 mg PO TID PRN Back Pain 06/15/23 06/15/23 Allergies Allergy/AdvReac Type Severity Reaction Status Date / Time phenazopyridine AdvReac Intermediate Nausea and Verified 06/15/23 10:31 [From Pyridium] Vomiting Review of Systems Review of Systems: Pertinent positives per HPI. Patient denies any fever, chills, rash, headache, visual changes, dizziness, cough, runny nose, sore throat, shortness of breath, chest pain, palpitations, vomiting, diarrhea, constipation, or any urinary issues. [facility] Past Medical History Medical History Bipolar disorder Kidney stones 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 Scoliosis Surgical History Surgical History History of adenoidectomy History of spinal surgery 02/2020 History of tubal ligation Family History Family History Father Alive and well Mother Alive and well Social History Social History Years smoked: 12 Smoking status: Light tobacco smoker Tobacco type: e-cigarettes/vaping Second hand tobacco smoke exposure: No Additional smoking assessment comments: Quit 4 months ago Alcohol intake: current Substance use: never Lack of Transportation: No Lack of Food: Never True Current Housing: I Have Housing Concerned About Future Housing: No Difficulty Paying Gas/Electric Bills: No Difficulty Paying for Meds: No Currently Unemployed: No Education: Associate Degree Difficulty w/ Childcare or Family Care: No Living arrangements: with family Occupation/Education: occupation Additional occupation/education comments: self employed Gender identity (if verbalized by the patient): Female Sexual Orientation (if Verbalized by the Patient): Straight or Heterosexual Comments At the time of my signature, I reviewed and agree with the nursing past medical, surgical, social, and family history. There is no relevant family history pertinent to the patient complaint. Exam Narrative: General: Well-developed, well nourished, in no apparent distress. Head: Normocephalic, atraumatic. Cardio: Regular rate and rhythm, s1 and s2 normal, no murmur appreciated. Resp: Clear to auscultation bilaterally, no rhonchi, rales, wheezing or rubs. Abdomen: Soft, pliable, bowel sounds present in all quadrants, non-tender to palpation, no organomegly, no CVAT tenderness. Course Course Emergency Course: Portions of this record may have been created with voice recognition software. Level of
[2023-06-15 10:39] VITALS: BP 132/80; PULSE 65; RESP 14; TEMP 36.5; O2SAT 100
== END 2023-06-15 11:05 | disposition short-term general hospital (02) ==
PROVIDERS: Emergency Provider Nurse Practitioner Family; PCP Nurse Practitioner
DX: R10.2 Pelvic and perineal pain (principal); R10.84 Generalized abdominal pain; F17.290 Nicotine dependence, other tobacco product, uncomplicated
CPT/HCPCS: 81003; 81025; 99212; G0463

== ENCOUNTER 2023-06-27 10:23 | Emergency (ER) | payer OTHER, SELFPAY ==
--- NOTE | 2023-06-27 10:46 | ED.FEMALEGU ---
HPI - Female Genitourinary General Chief complaint: Urogenital-Female Stated complaint: uti symptoms Time Seen by Provider: 06/27/23 10:46 Source: patient Mode of arrival: ambulatory Limitations: no limitations History of Present Illness HPI Narrative: Patient is a 33-year-old female who presents with burning, frequency and urgency of urination. Denies any abdominal pain, low back pain, fever, chills. Does report mild nausea. Also reports vaginal discharge and history of frequent BV. Patient states she has biopsy at OB office on Sunday. Denies any concern for STD. MD elicited complaint: dysuria Related Data Home Medications Medication Instructions Recorded Confirmed tizanidine 4 mg capsule 4 mg PO TID PRN Muscle Spasm 05/02/23 06/27/23 ibuprofen 800 mg tablet 800 mg PO TID PRN Back Pain 06/15/23 06/27/23 Allergies Allergy/AdvReac Type Severity Reaction Status Date / Time phenazopyridine AdvReac Intermediate Nausea and Verified 06/15/23 10:31 [From Pyridium] Vomiting Review of Systems Review of Systems: All systems reviewed & are unremarkable except as noted in HPI and below Constitutional: Constitutional: Denies chills, Denies fever(s), Denies headache(s), Denies malaise and Denies weakness Eyes: Eyes: Denies change in vision, Denies eye discharge and Denies irritation ENT: Denies otalgia, Denies headache(s), Denies nasal congestion, Denies nasal discharge, Denies sinus pain and Denies sore throat Cardiovascular: Cardiovascular: Denies chest pain, Denies edema, Denies palpitations and Denies dyspnea Respiratory: Respiratory: Denies cough and Denies dyspnea Gastrointestinal: Gastrointestinal: Denies abdominal pain, Denies diarrhea, Denies nausea and Denies vomiting Genitourinary: Genitourinary: Denies hematuria, Reports nocturia, Reports dysuria, Denies flank pain, Reports urinary urgency and Reports vaginal discharge Musculoskeletal: Musculoskeletal: Denies back pain and Denies numbness Integumentary/Breasts: Skin/Breast: Denies pruritus and Denies rash Neurologic: Denies headache(s), Denies numbness and Denies weakness Psychiatric: Psychiatric: Reports no additional psychiatric complaints Endocrine: Endocrine: Denies palpitations PMFSH Past Medical History Medical History Bipolar disorder Kidney stones 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 Scoliosis Surgical History Surgical History History of adenoidectomy History of spinal surgery 02/2020 History of tubal ligation Family History Family History Father Alive and well Mother Alive and well Social History Social History Years smoked: 12 Smoking status: Light tobacco smoker Tobacco type: e-cigarettes/vaping Second hand tobacco smoke exposure: No Additional smoking assessment comments: Quit 4 months ago Alcohol intake: current Substance use: never Lack of Transportation: No Lack of Food: Never True Current Housing: I Have Housing Concerned About Future Housing: No Difficulty Paying Gas/Electric Bills: No Difficulty Paying for Meds: No Currently Unemployed: No Education: Associate Degree Difficulty w/ Childcare or Family Care: No Living arrangements: with family Occupation/Education: occupation Additional occupation/education comments: self employed Gender identity (if verbalized by the patient): Female Sexual Orientation (if Verbalized by the Patient): Straight or Heterosexual Comments At time of signature, agree with nursing past medical, surgical, social and family history. There is no relevant family history pertinent to the presenting complaint. Exam Const: General: cooperative, healthy appearing, comfortable, no acute distress and wel
[2023-06-27 10:54] VITALS: BP 129/93; PULSE 68; RESP 16; TEMP 36.6; O2SAT 100
== END 2023-06-27 11:51 | disposition home or self-care (01) ==
PROVIDERS: Emergency Provider Nurse Practitioner Family; PCP Nurse Practitioner
DX: N76.0 Acute vaginitis (principal); M41.9 Scoliosis, unspecified
CPT/HCPCS: 81003; 99213; G0463

== ENCOUNTER 2023-07-06 14:55 | Emergency (ER) | payer OTHER, SELFPAY ==
[2023-07-06 15:06] VITALS: BP 144/85; PULSE 102; RESP 16; TEMP 37.2; O2SAT 100
--- NOTE | 2023-07-06 15:06 | ED.FEMALEGU ---
HPI - Female Genitourinary General Chief complaint: Urogenital-Female Stated complaint: UTI Time Seen by Provider: 07/06/23 15:07 Source: patient Mode of arrival: ambulatory Limitations: no limitations History of Present Illness HPI Narrative: Rashawn is a 33-year-old female patient presenting to the clinic today with complaints of possible urinary tract infection. She reports she is having some burning with urination. The symptoms have been going on for approximately 2 weeks but have gotten worse over the past 2 days. Recently had a LEEP procedure done. Denies any vaginal discharge or pelvic pain at this time. She denies any fever, abdominal pain, or back pain. Related Data Home Medications Medication Instructions Recorded Confirmed tizanidine 4 mg capsule 4 mg PO TID PRN Muscle Spasm 05/02/23 07/06/23 ibuprofen 800 mg tablet 800 mg PO TID PRN Back Pain 06/15/23 07/06/23 Allergies Allergy/AdvReac Type Severity Reaction Status Date / Time phenazopyridine AdvReac Intermediate Nausea and Verified 07/06/23 15:09 [From Pyridium] Vomiting Review of Systems Review of Systems: Pertinent positives per HPI. Patient denies any fever, chills, rash, headache, visual changes, dizziness, cough, runny nose, sore throat, shortness of breath, chest pain, palpitations, nausea, vomiting, diarrhea, constipation, abdominal pain. 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 Scoliosis Surgical History Surgical History History of adenoidectomy History of spinal surgery 02/2020 History of tubal ligation Family History Family History Father Alive and well Mother Alive and well Social History Social History Years smoked: 12 Smoking status: Light tobacco smoker Tobacco type: e-cigarettes/vaping Second hand tobacco smoke exposure: No Additional smoking assessment comments: Quit 4 months ago Alcohol intake: current Substance use: never Lack of Transportation: No Lack of Food: Never True Current Housing: I Have Housing Concerned About Future Housing: No Difficulty Paying Gas/Electric Bills: No Difficulty Paying for Meds: No Currently Unemployed: No Education: Associate Degree Difficulty w/ Childcare or Family Care: No Living arrangements: with family Occupation/Education: occupation Additional occupation/education comments: self employed Gender identity (if verbalized by the patient): Female Sexual Orientation (if Verbalized by the Patient): Straight or Heterosexual Comments At the time of my signature, I reviewed and agree with the nursing past medical, surgical, social, and family history. There is no relevant family history pertinent to the patient complaint. Exam Narrative: General: Well-developed, well nourished, in no apparent distress. Head: Normocephalic, atraumatic. Cardio: Regular rate and rhythm, s1 and s2 normal, no murmur appreciated. Resp: Clear to auscultation bilaterally, no rhonchi, rales, wheezing or rubs. Abdomen: Soft, pliable, bowel sounds present in all quadrants, non-tender to palpation, no organomegly, no CVAT tenderness. Course Course Emergency Course: Portions of this record may have been created with voice recognition software. Level of Care: Express Care Visit Vital Signs Vital signs: Vital Signs Temperature 37.2 C 07/06/23 15:06 Pulse Rate 102 H 07/06/23 15:06 Respiratory Rate 16 07/06/23 15:06 Blood Pressure 144/85 H 07/06/23 15:06 Pulse Oximetry 100 07/06/23 15:06 Oxygen Delivery Room Air 07/06/23 15:06 Temperature 37.2 C 07/06/23 15:06 Pulse Rate 102 H 07/06/23 15:06 Resp
== END 2023-07-06 15:21 | disposition home or self-care (01) ==
PROVIDERS: Emergency Provider Nurse Practitioner Family; PCP Nurse Practitioner
DX: N39.0 Urinary tract infection, site not specified (principal); Z87.891 Personal history of nicotine dependence; M41.9 Scoliosis, unspecified
CPT/HCPCS: 81003; 87086; 99213; G0463

== ENCOUNTER 2023-08-21 19:15 | Emergency (ER) | payer OTHER, SELFPAY ==
[2023-08-21 19:23] VITALS: BP 130/79; PULSE 67; RESP 16; TEMP 36.8; O2SAT 100
--- NOTE | 2023-08-21 20:03 | ED.FEMALEGU ---
HPI - Female Genitourinary General Chief complaint: Urogenital-Female Stated complaint: urinary issue Time Seen by Provider: 08/21/23 20:03 Source: patient Mode of arrival: ambulatory Limitations: no limitations History of Present Illness HPI Narrative: 33-year-old female presents with right-sided back pain, dysuria, frequency, blood in urine starting yesterday. Symptoms worse today while at work. Took 1 azo prior to arrival. Afebrile. All systems reviewed and negative except as noted above. Related Data Allergies Allergy/AdvReac Type Severity Reaction Status Date / Time phenazopyridine AdvReac Intermediate Nausea and Verified 08/21/23 19:33 [From Pyridium] Vomiting Review of Systems Review of Systems: CONSTITUTIONAL: Denies fever, chills, or sweats. EYES: Denies visual changes, redness, or discharge. ENT: Denies rhinorrhea, congestion, sore throat, or otalgia. CARDIOVASCULAR: Denies chest pain, palpitations, or edema. RESPIRATORY: Denies cough or dyspnea. GASTROINTESTINAL: Denies abdominal pain, nausea, vomiting, or diarrhea. GENITOURINARY: Reports dysuria , frequency hematuria, right Low back pain.. SKIN: Denies rash or itching. MUSCULOSKELETAL: Denies back pain, joint pain, or myalgia. NEUROLOGIC: Denies headache, numbness, or weakness. PSYCHIATRIC: Denies anxiety or depression. All other systems reviewed are negative, except as documented in HPI. 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 Scoliosis Surgical History Surgical History History of adenoidectomy History of spinal surgery 02/2020 History of tubal ligation Family History Family History Father Alive and well Mother Alive and well Social History Social History Years smoked: 12 Smoking status: Light tobacco smoker Tobacco type: e-cigarettes/vaping Second hand tobacco smoke exposure: No Additional smoking assessment comments: Quit 4 months ago Alcohol intake: current Substance use: never Lack of Transportation: No Lack of Food: Never True Current Housing: I Have Housing Concerned About Future Housing: No Difficulty Paying Gas/Electric Bills: No Difficulty Paying for Meds: No Currently Unemployed: No Education: Associate Degree Difficulty w/ Childcare or Family Care: No Living arrangements: with family Occupation/Education: occupation Additional occupation/education comments: self employed Gender identity (if verbalized by the patient): Female Sexual Orientation (if Verbalized by the Patient): Straight or Heterosexual Comments At time of signature, agree with nursing past medical, surgical, social and family history. There is no relevant family history pertinent to the presenting complaint. Exam Narrative: GENERAL: This is a well-nourished, well-developed patient, in no apparent distress. HEAD: normocephalic, atraumatic. EYES: PERRL. Sclera clear/white. Vision is grossly intact. EARS: External ears normal NOSE: External nose normal NECK: Neck supple, non-tender without lymphadenopathy, masses or thyromegaly. CARDIOVASCULAR: Regular rate and rhythm without murmurs, gallops, or rubs. RESPIRATORY: Clear to auscultation. Breath sounds equal bilaterally. No wheezes, rales, or rhonchi. SKIN: warm, Dry, intact with no suspicious lesions or rash, good texture and turgor. NEURO: awake, alert, and oriented to person, place and time. There were no obvious focal neurologic abnormalities. EXTREMITIES: No joint tenderness, effusion, or edema noted. Course Course Level of Care: Express Care Visit Vital Signs Vital signs: Vital Signs Temperature 3
== END 2023-08-21 20:21 | disposition home or self-care (01) ==
PROVIDERS: Emergency Provider Nurse Practitioner Family; PCP Nurse Practitioner
DX: N39.0 Urinary tract infection, site not specified (principal); F31.9 Bipolar disorder, unspecified
CPT/HCPCS: 81003; 87086; 87088; 99213; G0463

== ENCOUNTER 2023-12-09 16:01 | Emergency (ER) | payer OTHER, SELFPAY ==
[2023-12-09 16:09] VITALS: BP 145/84; PULSE 74; RESP 18; TEMP 36.6; O2SAT 100
--- NOTE | 2023-12-09 16:37 | ED.FEMALEGU ---
HPI - Female Genitourinary General Chief complaint: Urogenital-Female Stated complaint: uti symptoms Time Seen by Provider: 12/09/23 16:20 Source: patient Mode of arrival: ambulatory Limitations: no limitations History of Present Illness HPI Narrative: 33 yo F presents with dysuria, urgency and frequency. States she always gets these symptoms after intercourse. No new partners. Had STI testing with her [employer] recently and all negative except for HPV. Had normal colposcopy. afebrile. all systems reviewed and negative except as noted above. Related Data Home Medications Medication Instructions Recorded Confirmed No Home Medications 12/09/23 12/09/23 Allergies Allergy/AdvReac Type Severity Reaction Status Date / Time phenazopyridine AdvReac Intermediate Nausea and Verified 12/09/23 16:15 [From Pyridium] Vomiting Review of Systems Review of Systems: CONSTITUTIONAL: Denies fever, chills, or sweats. EYES: Denies visual changes, redness, or discharge. ENT: Denies rhinorrhea, congestion, sore throat, or otalgia. CARDIOVASCULAR: Denies chest pain, palpitations, or edema. RESPIRATORY: Denies cough or dyspnea. GASTROINTESTINAL: Denies abdominal pain, nausea, vomiting, or diarrhea. GENITOURINARY: Reports dysuria, frequency, urgency. Denies hematuria. SKIN: Denies rash or itching. MUSCULOSKELETAL: Denies back pain, joint pain, or myalgia. NEUROLOGIC: Denies headache, numbness, or weakness. PSYCHIATRIC: Denies anxiety or depression. All other systems reviewed are negative, except as documented in HPI. 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 Scoliosis Surgical History Surgical History History of adenoidectomy History of spinal surgery 02/2020 History of tubal ligation Family History Family History Father Alive and well Mother Alive and well Social History Social History Years smoked: 12 Smoking status: Light tobacco smoker Tobacco type: e-cigarettes/vaping Second hand tobacco smoke exposure: No Additional smoking assessment comments: Quit 4 months ago Alcohol intake: current Substance use: never Lack of Transportation: No Lack of Food: Never True Current Housing: I Have Housing Concerned About Future Housing: No Difficulty Paying Gas/Electric Bills: No Difficulty Paying for Meds: No Currently Unemployed: No Education: Associate Degree Difficulty w/ Childcare or Family Care: No Living arrangements: with family Occupation/Education: occupation Additional occupation/education comments: self employed Gender identity (if verbalized by the patient): Female Sexual Orientation (if Verbalized by the Patient): Straight or Heterosexual Comments At time of signature, agree with nursing past medical, surgical, social and family history. There is no relevant family history pertinent to the presenting complaint. Exam Narrative: GENERAL: This is a well-nourished, well-developed patient, in no apparent distress. HEAD: normocephalic, atraumatic. EYES: PERRL. Sclera clear/white. Vision is grossly intact. EARS: External ears normal NOSE: External nose normal NECK: Neck supple, non-tender without lymphadenopathy, masses or thyromegaly. CARDIOVASCULAR: Regular rate and rhythm without murmurs, gallops, or rubs. RESPIRATORY: Clear to auscultation. Breath sounds equal bilaterally. No wheezes, rales, or rhonchi. SKIN: warm, Dry, intact with no suspicious lesions or rash, good texture and turgor. NEURO: awake, alert, and oriented to person, place and time. There were no obvious focal neurologic abnormalities. EXTREMITIES: No joint tenderness
== END 2023-12-09 16:39 | disposition home or self-care (01) ==
PROVIDERS: Emergency Provider Nurse Practitioner Family; PCP Nurse Practitioner
DX: R35.0 Frequency of micturition (principal)
CPT/HCPCS: 81003; 87077; 87086; 87088; 87186; 99213; G0463

== ENCOUNTER 2024-01-16 10:44 | Emergency (ER) | payer OTHER, SELFPAY ==
--- NOTE | ~2024-01-16 | XR_ITS ---
EXAMINATION: XR finger 1st RT min 2V DATE: 01/16/2024 11:01 INDICATION: Right thumb injury and pain. TECHNIQUE: 3 views of right thumb were obtained. COMPARISON: None. FINDINGS: Bone alignment is normal. No fracture. Joint spaces are normal. IMPRESSION: 1. No fracture. Reviewed, dictated and finalized at location A. IMPRESSION: 1. No fracture.
[2024-01-16 10:52] VITALS: BP 130/81; PULSE 102; RESP 16; TEMP 36.3; O2SAT 100
--- NOTE | 2024-01-16 11:09 | ED.EXTPRO ---
HPI - Extremity Problem General Chief complaint: Extremity Injury, Upper Stated complaint: Right Thumb Injuy Time Seen by Provider: 01/16/24 11:00 Source: patient and RN notes reviewed Mode of arrival: ambulatory Limitations: no limitations History of Present Illness HPI Narrative: Patient presents today complaining of a right thumb injury. States she hyperextended her thumb yesterday on accident while at home. Does report some mild tingling. Currently rates her pain 8/10 has tried no medication prior to arrival, but does have a short metal splint on, which is not helping. Related Data Allergies Allergy/AdvReac Type Severity Reaction Status Date / Time phenazopyridine AdvReac Intermediate Nausea and Verified 12/09/23 16:15 [From Pyridium] Vomiting Review of Systems Review of Systems: CONSTITUTIONAL: Denies body aches, fever, chills, or sweats. EYES: Denies visual changes, redness, or discharge. ENT: Denies rhinorrhea, congestion, sore throat, or otalgia. CARDIOVASCULAR: Denies chest pain, palpitations, or edema. RESPIRATORY: Denies cough or dyspnea. GASTROINTESTINAL: Denies abdominal pain, nausea, vomiting, or diarrhea. GENITOURINARY: Denies dysuria or hematuria. SKIN: Denies rash, itching, or wounds. MUSCULOSKELETAL: Denies back pain, or myalgia.+ right thumb injury NEUROLOGIC: Denies headache, numbness,, or weakness. PSYCH: Denies depression or anxiety. 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 Scoliosis Surgical History Surgical History History of adenoidectomy History of spinal surgery 02/2020 History of tubal ligation Family History Family History Father Alive and well Mother Alive and well Social History Social History Years smoked: 12 Smoking status: Light tobacco smoker Tobacco type: e-cigarettes/vaping Second hand tobacco smoke exposure: No Additional smoking assessment comments: Quit 4 months ago Alcohol intake: current Substance use: never Lack of Transportation: No Lack of Food: Never True Current Housing: I Have Housing Concerned About Future Housing: No Difficulty Paying Gas/Electric Bills: No Difficulty Paying for Meds: No Currently Unemployed: No Education: Associate Degree Difficulty w/ Childcare or Family Care: No Living arrangements: with family Occupation/Education: occupation Additional occupation/education comments: self employed Gender identity (if verbalized by the patient): Female Sexual Orientation (if Verbalized by the Patient): Straight or Heterosexual Comments At time of signature, I have reviewed and agree with nursing past medical, surgical, social and family history unless otherwise noted. Please see nursing chart for further information. There is no relevant family history pertinent to the presenting complaint Exam Narrative: GENERAL: Well-appearing, well-nourished, and in no acute distress. HEAD: Normocephalic, atraumatic. EYES: EOMI. No redness or drainage. Conjunctivae normal. ENT: Mucous membranes pink and moist. NECK: Normal AROM. CHEST: No respiratory distress. EXTREMITIES: Right thumb: Tenderness to the thenar eminence/1st metacarpal. No tenderness to the proximal and distal phalanx. No edema or ecchymosis noted. No deformity noted. Distal sensation intact. Capillary refill normal. Range of motion of the interphalangeal joint without pain. Any movement of the thenar eminence causes discomfort. SKIN: Warm, dry, no rash. Capillary refill normal. Normal skin turgor. NEURO: No focal deficits. Alert and oriented x3. Gait steady. PSYCH: Normal affect. No signs
== END 2024-01-16 11:36 | disposition home or self-care (01) ==
PROVIDERS: Emergency Provider Nurse Practitioner; PCP Nurse Practitioner
DX: S63.601A Unspecified sprain of right thumb, initial encounter (principal); X50.9XXA Other and unspecified overexertion or strenuous movements or postures, initial encounter
CPT/HCPCS: 29130; 73140; 99213; G0463

== ENCOUNTER 2024-06-05 13:49 | Outpatient (CLI) | payer OTHER, SELFPAY ==
--- NOTE | ~2024-06-05 | US_ITS ---
US pelvic complete w TV Ordering provider: Chelle Villafana, DO History: . pelvic pain . Comparison: None. Technique: Transabdominal and endovaginal ultrasound of the pelvis (Doppler ultrasound interrogation techniques used as needed for this exam.) FINDINGS: CERVIX: Multiple nabothian cysts. UTERUS: Measures 7.4x 4.3x 4.8 cm in length which is within normal limits and is anteverted. No myom etrial masses. ENDOMETRIUM: Normal in thickness measuring 11.1 mm. (Trace of fluid is seen in the endometrial cavity . No endometrial masses, cysts or fluid. CUL DE SAC: No free fluid. RIGHT OVARY: Normal in size measuring 2.3x 1.5x 2 cm. Normal echotexture. Doppler vascular flow prese nt. LEFT OVARY: Normal in size measuring 2.6x 1.7x 2.6 cm. Normal echotexture. Doppler vascular flow pres ent. Isoechoic area is seen in the left ovary. Peripheral vascularity is seen around the cyst.. ADNEXA: Normal. No mass. IMPRESSION: Fluid in the endometrial cavity. Thickened endometrium. Correlation with menstrual stage is advised. Multiple nabothian cysts. Isoechoic area is seen in the left ovary with surrounding vascularity. Follow-up to exclude a mass is advised. Hemorrhagic cyst cannot be excluded. No definite evidence of ectopic . Correlation with the beta units is advised. Otherwise, normal pelvic ultrasound. Reviewed, dictated and finalized at location A. IMPRESSION: Fluid in the endometrial cavity. Thickened endometrium. Correlation with menstrual stage is advised. Multiple nabothian cysts. Isoechoic area is seen in the left ovary with surrounding vascularity. Follow-u p to exclude a mass is advised. Hemorrhagic cyst cannot be excluded. No definit e evidence of ectopic . Correlation with the beta units is advised. Ot herwise, normal pelvic ultrasound.
== END 2024-06-05 13:50 | disposition home or self-care (01) ==
PROVIDERS: PCP Nurse Practitioner; Visit Provider Student in an Organized Health Care Education/Training Program
DX: R10.2 Pelvic and perineal pain (principal); N94.9 Unspecified condition associated with female genital organs and menstrual cycle; N88.8 Other specified noninflammatory disorders of cervix uteri
CPT/HCPCS: 76830; 76856

== ENCOUNTER 2024-06-09 12:26 | Emergency (ER) | payer OTHER, SELFPAY ==
[2024-06-09 12:38] VITALS: BP 132/73; PULSE 123; RESP 20; TEMP 37.1; O2SAT 100
[2024-06-09 13:08] LABS: EDCOVIDSCREEN Negative (Negative); EDINFLUASCREEN Negative (Negative); EDINFLUBSCREEN Negative (Negative); EDSTREPNEGPOS1 Negative (Negative)
--- NOTE | 2024-06-09 14:09 | ED.URI ---
HPI - URI/Sore Throat General Chief Complaint: Upper Respiratory Infection Stated Complaint: sore throat / bodyache / diarrhea Time Seen by Provider: 06/09/24 14:09 Source: patient, RN notes reviewed and old records reviewed Mode of arrival: ambulatory Limitations: no limitations History of Present Illness HPI Narrative: patient presents with complaints of nasal drainage, sore throat, body aches, diarrhea. Symptoms have been present for about 1 week. She has not been taking anything for her symptoms. She denies any fever, chills, sweats. She does report some postnasal drainage, hoarse voice. She is in no distress on arrival. Related Data Allergies Allergy/AdvReac Type Severity Reaction Status Date / Time phenazopyridine AdvReac Intermediate Nausea and Verified 06/09/24 13:39 [From Pyridium] Vomiting Review of Systems Review of Systems: All systems reviewed & are unremarkable except as noted in HPI and below Constitutional: Constitutional: Reports no additional constitutional complaints ENT: Reports system reviewed and no additional complaints, except as documented, Reports as per HPI, Reports hoarseness, Reports nasal congestion, Reports nasal discharge, Reports sinus pain, Reports sinus pressure and Reports sore throat Cardiovascular: Cardiovascular: Reports no additional cardiovascular complaints Respiratory: Respiratory: Reports no additional respiratory complaints and Reports cough Gastrointestinal: Gastrointestinal: Reports no additional gastrointestinal complaints and Reports diarrhea Musculoskeletal: Musculoskeletal: Reports myalgias PMFSH Past Medical History Medical History Bipolar disorder Kidney stones 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 Scoliosis Surgical History Surgical History History of adenoidectomy History of spinal surgery 02/2020 History of tubal ligation Family History Family History Father Alive and well Mother Alive and well Social History Social History Years smoked: 12 Smoking status: Light tobacco smoker Tobacco type: e-cigarettes/vaping Second hand tobacco smoke exposure: No Additional smoking assessment comments: Quit 4 months ago Alcohol intake: current Substance use: never Lack of Transportation: No Lack of Food: Never True Current Housing: I Have Housing Concerned About Future Housing: No Difficulty Paying Gas/Electric Bills: No Difficulty Paying for Meds: No Currently Unemployed: No Education: Associate Degree Difficulty w/ Childcare or Family Care: No Living arrangements: with family Occupation/Education: occupation Additional occupation/education comments: self employed Gender identity (if verbalized by the patient): Female Sexual Orientation (if Verbalized by the Patient): Straight or Heterosexual Comments At the time of my signature, I reviewed and agree with the nursing past medical, surgical, social, and family history. There is no relevant family history pertinent to the patient complaint. Exam Const: General: cooperative, no acute distress, alert and awake Orientation/consciousness: oriented to person, oriented to place and oriented to time HENMT: Head: normal to inspection Face and sinus: sinus tenderness frontal and maxillary Mouth: Yes moist mucous membranes Throat: posterior oropharynx abnormal erythema and postnasal drainage Resp: Effort & Inspection: normal respiratory effort and able to speak in complete sentences Auscultation: clear to auscultation bilaterally, no crackles, no rales, no rhonchi and no wheezes Cardio: Palpation: normal PMI Rate: regular rate Rhythm: regular rhythm Heart sounds: S1 normal heart sound present and S2 normal heart sound
== END 2024-06-09 14:20 | disposition home or self-care (01) ==
PROVIDERS: Emergency Provider Nurse Practitioner Family; PCP Nurse Practitioner
DX: J01.10 Acute frontal sinusitis, unspecified (principal); Z20.822 Contact with and (suspected) exposure to COVID-19
CPT/HCPCS: 87081; 87426; 87804; 87880; 99213; G0463

== ENCOUNTER 2024-06-27 14:47 | Emergency (ER) | payer OTHER, SELFPAY ==
--- NOTE | ~2024-06-27 | US_ITS ---
US pelvic complete Ordering provider: Scott Red PA-C History: . RLQ, LLQ tenderness, rule out torsion . Comparison: None. Technique: Transabdominal and endovaginal ultrasound of the pelvis (Doppler ultrasound interrogation techniques used as needed for this exam.) FINDINGS: CERVIX: Normal. UTERUS: Measures 9.2x 4.4x 6.2 cm in length which is within normal limits and is anteverted. No myom etrial masses. ENDOMETRIUM: Normal in thickness measuring 2.8 mm. No endometrial masses, cysts or fluid. CUL DE SAC: No free fluid. RIGHT OVARY: Normal in size measuring 4.8x 2.8x 4.2 cm. Normal echotexture. Doppler vascular flow pre sent. Follicles are seen. LEFT OVARY: Normal in size measuring 2.1x 1.8x 2.7 cm. Normal echotexture. Doppler vascular flow pres ent. Small follicular ADNEXA: Normal. No mass. IMPRESSION: normal pelvic ultrasound. Reviewed, dictated and finalized at location A. IMPRESSION: normal pelvic ultrasound.
--- NOTE | ~2024-06-27 | CT_ITS ---
CT abdomen pelvis w con Ordering provider: Scott Red PA-C History: 34 years Female with . RLQ tenderness, LLQ tenderness . Comparison: None. Technique: CT abdomen and pelvis with IV and without oral contrast. Automated exposure control and it erative reconstruction technique were employed. The dose-length product was 255.32 mGy-cm. 100 mL Omn ipaque 350 was given IV. Findings: VISUALIZED LOWER CHEST: Dependent atelectatic changes. UPPER ABDOMINAL ORGANS: Liver: Normal. Gallbladder: Contracted. Spleen: Normal. Stomach/duodenum: Normal. Pancreas: Normal. Adrenals: Normal. Kidneys: Normal. PELVIC ORGANS: The bladder is normal. Uterus: Normal. Right ovarian cyst is seen measuring 4.8 x 2.4 cm. BOWEL AND MESENTERY: Colon: No evidence of diverticulitis. Fecal material seen in the colon. Appendix is not demonstrated. No inflammatory changes in the right lower quadrant. Small Bowel: Fluid seen in the small bowel with no significant dilatation. No obstruction. Peritoneum/mesentery: No free air or free fluid. No mesenteric lymphadenopathy. RETROPERITONEUM: Normal aorta. No retroperitoneal lymphadenopathy. MUSCULOSKELETAL: Superficial soft tissues: The superficial soft tissues are normal. Bones: Normal spine. IMPRESSION: 1. No evidence of diverticulitis, appendicitis or intestinal obstruction. 2. Fluid in the small bowel which may indicate enteritis versus diarrhea. Clinical correlation advis ed. 3. Right ovarian cyst measuring 4.8 x 2.4 cm.. Reviewed, dictated and finalized at location A. IMPRESSION: 1. No evidence of diverticulitis, appendicitis or intestinal obstruction. 2. Fluid in the small bowel which may indicate enteritis versus diarrhea. Clin ical correlation advised. 3. Right ovarian cyst measuring 4.8 x 2.4 cm..
--- NOTE | ~2024-06-27 | XR_ITS ---
XR chest 2V Ordering provider: Stephanie Meléndez PA-C History: 34 years Female with . lower extremity edema . Comparison: None. FINDINGS: MEDIASTINUM: The cardiac silhouette is not enlarged. LUNGS: No infiltrates, effusions or pneumothorax. OTHER: No free air under the diaphragm. IMPRESSION: No acute cardiopulmonary pathology. Reviewed, dictated and finalized at location A.
[2024-06-27 14:51] VITALS: BP 141/70; PULSE 127; RESP 15; TEMP 36.4; O2SAT 100
--- NOTE | 2024-06-27 15:12 | ED_ITS ---
HPI - Nausea/Vomiting/Diarrhea General Chief complaint: Nausea/Vomiting/Diarrhea <Stephanie Meléndez PA-C - Last Filed: 06/30/24 17:15> Stated complaint: itching all over, diarrhea for a month <Stephanie Meléndez PA-C - Last Filed : 06/30/24 17:15> Time Seen by Provider: 06/27/24 15:12 <Stephanie Meléndez PA-C - Last Filed: 06/30/24 17:15> Focused HPI: This is a 34 year old female that presents to the ER for multiple complaints. Reports itching for 3 weeks. Reports swelling in her legs. Reports abdominal pain and diarrhea for a month. Denies fevers, chest pain, shortness of breath, dysuria, hematuria. GENERAL: Well-appearing, well-nourished, and in no acute distress. HEAD: Normocephalic, atraumatic. CHEST: Clear to auscultation. ?No respiratory distress. HEART: Regular rate and rhythm.? NEURO: ?Alert and oriented x3. Patient screened in triage and initial orders placed.? ?Additional care and disposition to be based upon?diagnostic testing and treatment. <Stephanie Meléndez PA-C - Last Filed: 06/30/24 17:15> History of Present Illness HPI Narrative: Agree with HPI above. Patient adds that she was told and recent ED visit 3 weeks ago that her nausea and vomiting is likely due to smoking weed. States that she used any cannabis or other drugs in the past 2 weeks. She does report drinking a shot of alcohol yesterday during Halloween but does not drink. She does report that the itching has been going from head to toe for the last 3 weeks. She reports occasional small bumps to her hands that come and go, but overall has not had a rash. Denies vaginal pt elevated mood. She notes intermittent lower abdominal pain and is supposed to get an ultrasound per [employer]. Endorses are on 2 episodes of loose stools per day that are great in color. Denies any GI bleeding symptoms. She states she has been taking Benadryl for itching with minimal relief. Denies any new soaps, detergents, new medications. Denies fevers, chills, chest pain, shortness of breath. 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 Scoliosis <Stephanie Meléndez PA-C - Last Filed: 06/30/24 17:15> Surgical History Surgical History: Surgical History History of adenoidectomy History of spinal surgery 02/2020 History of tubal ligation <Stephanie Meléndez PA-C - Last Filed: 06/30/24 17:15> Family History Family History: Family History Father Alive and well Mother Alive and well <Stephanie Meléndez PA-C - Last Filed: 06/30/24 17:15> Social History Social History: Social History Years smoked: 12 Smoking status: Light tobacco smoker Tobacco type: e-cigarettes/vaping Second hand tobacco smoke exposure: No Additional smoking assessment comments: Quit 4 months ago Alcohol intake: current Substance use: never Lack of Transportation: No Lack of Food: Never True Current Housing: I Have Housing Concerned About Future Housing: No Difficulty Paying Gas/Electric Bills: No Difficulty Paying for Meds: No Currently Unemployed: No Education: Associate Degree Difficulty w/ Childcare or Family Care: No Living arrangements: with family Occupation/Education: occupation Additional occupation/education comments: self employed Gender identity (if verbalized by the patient): Female Sexual Orientation (if Verbalized by the Patient): Straight or Heterosexual <Stephanie Meléndez PA-C - Last Filed: 06/30/24 17:15> Exam Narrative: GENERAL: Well-appearing, well-nourished, and in no acute distress. HEAD: Normocephalic, atraumatic. EYES: PERRLA and EOMI. ENT: Nares clear, no rhinorrhea or epistaxis. Mucous membranes moist. Oropharynx without tonsillar hypertrophy exudate or other lesions. NECK: Supple. No adenopathy or masses. CHEST: No respiratory distress. Clear to auscultation. No wheezes rales or rhonchi HEART: Regular rate and rhythm. No murmur heard. Normal peripheral pulses. ABDOMEN: Mild tenderness across the lower abdomen. Soft, otherwise nontender, nondistended, normal active bowel sounds. Negative flank tenderness bilaterally. MSK: Normal range of motion. No edema. SKIN: Warm, dry, no rash. NEURO: Alert and oriented x4. No focal deficits. PSYCH: Normal mood and affect. <Scott Red PA-C - Last Filed: 06/27/24 21:57> Course Reevaluation(s) Reevaluation #1: Patient is feeling much improved symptomatically. Review the results of the workup with the patient. I advised that her heart rate is still little too fast despite using the 2 L of fluids. When asked about anxiety she says no but does state that when the blood pressure squeeze or feels like she can not breathe. Offered admission for the persistent tachycardia, however patient would like to go home as she is feeling much better now. Encouraged her to follow-up with PCP on this issue. <CRISTA Garcia Last Filed: 06/27/24 21:57> Date: 06/27/24 <CRISTA Garcia Last Filed: 06/27/24 21:57> Time: 19:40 <CRISTA Garcia Last Filed: 06/27/24 21:57> Vital Signs Vital signs: Vital Signs Temperature 97.6 F 06/27/24 14:51 Pulse Rate 127 H 06/27/24 14:51 Respiratory Rate 15 06/27/24 14:51 Blood Pressure 141/70 H 06/27/24 14:51 Pulse Oximetry 100 06/27/24 14:51 Oxygen Delivery Room Air 06/27/24 14:51 Temperature 97.6 F 06/27/24 14:51 Pulse Rate 79 06/27/24 20:33 Respiratory Rate 16 06/27/24 20:33 Blood Pressure 134/78 06/27/24 20:33 Pulse Oximetry 100 06/27/24 20:33 Oxygen Delivery Room Air 06/27/24 14:51 <Stephanie Meléndez PA-C - Last Filed: 06/30/24 17:15> Vital Signs Temperature 97.6 F 06/27/24 14:51 Pulse Rate 127 H 06/27/24 14:51 Respiratory Rate 15 06/27/24 14:51 Blood Pressure 141/70 H 06/27/24 14:51 Pulse Oximetry 100 06/27/24 14:51 Oxygen Delivery Room Air 06/27/24 14:51 Temperature 97.6 F 06/27/24 14:51 Pulse Rate 79 06/27/24 20:33 Respiratory Rate 16 06/27/24 20:33 Blood Pressure 134/78 06/27/24 20:33 Pulse Oximetry 100 06/27/24 20:33 Oxygen Delivery Room Air 06/27/24 14:51 <Scott Red PA-C - Last Filed: 06/27/24 21:57> MDM - Nausea/Vomiting/Diarrhea MDM Narrative Medical decision making narrative: This is a 34-year-old female who presents to the ED for chief complaint of N/V/D and pruritus generalized. Vitals show initial tachycardia but otherwise normal. EKG shows sinus tachycardia. Lab work shows mild leukopenia 4.2. CMP unremarkable overall. Findings of enteritis and diarrhea on the CT scan with a right ovarian cyst on the pelvic ultrasound with no evidence of torsion. Overall presentation is most consistent with gastroenteritis. She is still having persistent tachycardia despite fluid administration. She does feel much improved after medications here. Due to the persistent tachycardia, added TSH and it does appear that she is in a hyperthyroid state which would be new for the patient. Advise that she follow-up very closely with PCP regarding the elevated thyroid function. Pt will be discharged in stable condition. Return precautions given and supportive measures discussed. Pt is understanding and agreeable with plan for discharge and follow-up with PCP. <Scott Red PA-C - Last Filed: 06/27/24 21 :57> Lab Data Result diagrams: 06/27/24 15:32 06/27/24 15:32 <Stephanie Meléndez PA-C - Last Filed: 06/30/24 17:15> Labs: Lab Results 06/27/24 06/27/24 06/27/24 Range/Units 15:32 15:32 15:33 WBC 4.2 L (4.5-10.0) K/mm3 RBC 4.32 (4.2-5.4) M/mm3 Hgb 11.2 L (12.0-15.0) g/dL Hct 35.7 L (37.0-47.0) % MCV 82.6 (80-100) fl MCH 25.9 L (26-34) pg MCHC 31.4 L (32-36) g/dl RDW 11.9 (11.5-14.5) % Plt Count 196 (150-375) k/mm3 MPV 12.1 H (7.4-10.4) fl Immature Gran % (Auto) 0.2 (0-0.5) % Neut % (Auto) 50.8 (45.5-73.1) % Lymph % (Auto) 35.8 (18.3-44.2) % [place] % (Auto) 11.6 H (2.6-8.5) % Eos % (Auto) 1.4 (0-4.4) % Baso % (Auto) 0.2 (0.2-1.2) % Lymph # (Auto) 1.52 (0.9-3.2) K/mm3 [place] # (Auto) 0.5 (0.1-0.6) K/mm3 Eos # (Auto) 0.1 (0-0.3) K/mm3 Baso # (Auto) 0.0 (0.0-0.1) K/mm3 Abs Immat Gran (auto) 0.01 (0.00-0.031) K/mm3 Absolute Neuts (auto) 2.2 (1.3-6.7) K/mm3 Absolute Nucleated RBC 0.000 (0.0-0.012) K/mm3 Nucleated RBC % 0.0 (0.0-0.2) % PT 14.0 (11.1-14.7) Seconds INR 1.0 APTT 23.8 (22.3-36.8) Seconds Sodium 137 (137-145) mmol/L Potassium 3.9 (3.4-5.0) mmol/L Chloride 100 (98-107) mmol/L Carbon Dioxide 29 (22-30) mmol/L Anion Gap 8 (4-12) mmol/L BUN 8 (7-17) mg/dL Creatinine 0.90 (0.7-1.0) mg/dL Estim Creat Clear Calc 65 ml/min Estimated GFR > 60 (59 - ) Glucose 139 H (65-110) mg/dL Calcium 8.9 (8.4-10.2) mg/dL Total Bilirubin 0.3 (0.2-1.3) mg/dL AST 30 (14-36) U/L ALT 34 (6-35) U/L Alkaline Phosphatase 72 (38-126) U/L NT-Pro-B Natriuret Pep 2160 H Cancelled (19.9-100) pg/mL Total Protein 7.0 (6.3-8.2) g/dL Albumin 3.7 (3.5-5.1) g/dL Lipase 84 (23-300) U/L TSH (Reflex) (0.465-4.68) uIU/mL Free T4 (0.78-2.19) ng/dL Urine Color Yellow (Yellow) Urine Appearance Clear (Clear) Urine pH 7.5 (5.0-9.0) Ur Specific [place] 1.007 (1.001-1.035) Urine Protein Negative (Negative) mg/dL Urine Glucose (UA) Negative (Negative) mg/dL Urine Ketones Negative (Negative) mg/dL Ur Blood (Man) Negative (Negative) Urine Nitrate Negative (Negative) Urine Bilirubin Negative (Negative) Urine Urobilinogen 1.0 (<2.0) mg/dL Leukocyte Esterase Rfl Negative (Negative) OSMAN/UL POC Urine HCG, Qual Negative (Negative) Urine Opiates Screen Negative (Negative) Urine Methadone Screen Negative (Negative) Ur Barbiturates Screen Negative (Negative) Ur Phencyclidine Scrn Negative (Negative) Ur Amphetamine Screen Negative (Negative) U Benzodiazepines Scrn Negative (Negative) Urine Cocaine Screen Negative (Negative) U Cannabinoids Screen Negative (Negative) 06/27/24 Range/Units 19:16 WBC (4.5-10.0) K/mm3 RBC (4.2-5.4) M/mm3 Hgb (12.0-15.0) g/dL Hct (37.0-47.0) % MCV (80-100) fl MCH (26-34) pg MCHC (32-36) g/dl RDW (11.5-14.5) % Plt Count (150-375) k/mm3 MPV (7.4-10.4) fl Immature Gran % (Auto) (0-0.5) % Neut % (Auto) (45.5-73.1) % Lymph % (Auto) (18.3-44.2) % [place] % (Auto) (2.6-8.5) % Eos % (Auto) (0-4.4) % Baso % (Auto) (0.2-1.2) % Lymph # (Auto) (0.9-3.2) K/mm3 [place] # (Auto) (0.1-0.6) K/mm3 Eos # (Auto) (0-0.3) K/mm3 Baso # (Auto) (0.0-0.1) K/mm3 Abs Immat Gran (auto) (0.00-0.031) K/mm3 Absolute Neuts (auto) (1.3-6.7) K/mm3 Absolute Nucleated RBC (0.0-0.012) K/mm3 Nucleated RBC % (0.0-0.2) % PT (11.1-14.7) Seconds INR APTT (22.3-36.8) Seconds Sodium (137-145) mmol/L Potassium (3.4-5.0) mmol/L Chloride (98-107) mmol/L Carbon Dioxide (22-30) mmol/L Anion Gap (4-12) mmol/L BUN (7-17) mg/dL Creatinine (0.7-1.0) mg/dL Estim Creat Clear Calc ml/min Estimated GFR (59 - ) Glucose (65-110) mg/dL Calcium (8.4-10.2) mg/dL Total Bilirubin (0.2-1.3) mg/dL AST (14-36) U/L ALT (6-35) U/L Alkaline Phosphatase (38-126) U/L NT-Pro-B Natriuret Pep (19.9-100) pg/mL Total Protein (6.3-8.2) g/dL Albumin (3.5-5.1) g/dL Lipase (23-300) U/L TSH (Reflex) < 0.015 L (0.465-4.68) uIU/mL Free T4 > 6.99 H (0.78-2.19) ng/dL Urine Color (Yellow) Urine Appearance (Clear) Urine pH (5.0-9.0) Ur Specific [place] (1.001-1.035) Urine Protein (Negative) mg/dL Urine Glucose (UA) (Negative) mg/dL Urine Ketones (Negative) mg/dL Ur Blood (Man) (Negative) Urine Nitrate (Negative) Urine Bilirubin (Negative) Urine Urobilinogen (<2.0) mg/dL Leukocyte Esterase Rfl (Negative) OSMAN/UL POC Urine HCG, Qual (Negative) Urine Opiates Screen (Negative) Urine Methadone Screen (Negative) Ur Barbiturates Screen (Negative) Ur Phencyclidine Scrn (Negative) Ur Amphetamine Screen (Negative) U Benzodiazepines Scrn (Negative) Urine Cocaine Screen (Negative) U Cannabinoids Screen (Negative) <Stephanie Meléndez PA-C - Last Filed: 06/30/24 17:15> Lab Results 06/27/24 06/27/24 06/27/24 Range/Units 15:32 15:32 15:33 WBC 4.2 L (4.5-10.0) K/mm3 RBC 4.32 (4.2-5.4) M/mm3 Hgb 11.2 L (12.0-15.0) g/dL Hct 35.7 L (37.0-47.0) % MCV 82.6 (80-100) fl MCH 25.9 L (26-34) pg MCHC 31.4 L (32-36) g/dl RDW 11.9 (11.5-14.5) % Plt Count 196 (150-375) k/mm3 MPV 12.1 H (7.4-10.4) fl Immature Gran % (Auto) 0.2 (0-0.5) % Neut % (Auto) 50.8 (45.5-73.1) % Lymph % (Auto) 35.8 (18.3-44.2) % [place] % (Auto) 11.6 H (2.6-8.5) % Eos % (Auto) 1.4 (0-4.4) % Baso % (Auto) 0.2 (0.2-1.2) % Lymph # (Auto) 1.52 (0.9-3.2) K/mm3 [place] # (Auto) 0.5 (0.1-0.6) K/mm3 Eos # (Auto) 0.1 (0-0.3) K/mm3 Baso # (Auto) 0.0 (0.0-0.1) K/mm3 Abs Immat Gran (auto) 0.01 (0.00-0.031) K/mm3 Absolute Neuts (auto) 2.2 (1.3-6.7) K/mm3 Absolute Nucleated RBC 0.000 (0.0-0.012) K/mm3 Nucleated RBC % 0.0 (0.0-0.2) % PT 14.0 (11.1-14.7) Seconds INR 1.0 APTT 23.8 (22.3-36.8) Seconds Sodium 137 (137-145) mmol/L Potassium 3.9 (3.4-5.0) mmol/L Chloride 100 (98-107) mmol/L Carbon Dioxide 29 (22-30) mmol/L Anion Gap 8 (4-12) mmol/L BUN 8 (7-17) mg/dL Creatinine 0.90 (0.7-1.0) mg/dL Estim Creat Clear Calc 65 ml/min Estimated GFR > 60 (59 - ) Glucose 139 H (65-110) mg/dL Calcium 8.9 (8.4-10.2) mg/dL Total Bilirubin 0.3 (0.2-1.3) mg/dL AST 30 (14-36) U/L ALT 34 (6-35) U/L Alkaline Phosphatase 72 (38-126) U/L NT-Pro-B Natriuret Pep 2160 H Cancelled (19.9-100) pg/mL Total Protein 7.0 (6.3-8.2) g/dL Albumin 3.7 (3.5-5.1) g/dL Lipase 84 (23-300) U/L TSH (Reflex) (0.465-4.68) uIU/mL Free T4 (0.78-2.19) ng/dL Urine Color Yellow (Yellow) Urine Appearance Clear (Clear) Urine pH 7.5 (5.0-9.0) Ur Specific [place] 1.007 (1.001-1.035) Urine Protein Negative (Negative) mg/dL Urine Glucose (UA) Negative (Negative) mg/dL Urine Ketones Negative (Negative) mg/dL Ur Blood (Man) Negative (Negative) Urine Nitrate Negative (Negative) Urine Bilirubin Negative (Negative) Urine Urobilinogen 1.0 (<2.0) mg/dL Leukocyte Esterase Rfl Negative (Negative) OSMAN/UL POC Urine HCG, Qual Negative (Negative) Urine Opiates Screen Negative (Negative) Urine Methadone Screen Negative (Negative) Ur Barbiturates Screen Negative (Negative) Ur Phencyclidine Scrn Negative (Negative) Ur Amphetamine Screen Negative (Negative) U Benzodiazepines Scrn Negative (Negative) Urine Cocaine Screen Negative (Negative) U Cannabinoids Screen Negative (Negative) 06/27/24 Range/Units 19:16 WBC (4.5-10.0) K/mm3 RBC (4.2-5.4) M/mm3 Hgb (12.0-15.0) g/dL Hct (37.0-47.0) % MCV (80-100) fl MCH (26-34) pg MCHC (32-36) g/dl RDW (11.5-14.5) % Plt Count (150-375) k/mm3 MPV (7.4-10.4) fl Immature Gran % (Auto) (0-0.5) % Neut % (Auto) (45.5-73.1) % Lymph % (Auto) (18.3-44.2) % [place] % (Auto) (2.6-8.5) % Eos % (Auto) (0-4.4) % Baso % (Auto) (0.2-1.2) % Lymph # (Auto) (0.9-3.2) K/mm3 [place] # (Auto) (0.1-0.6) K/mm3 Eos # (Auto) (0-0.3) K/mm3 Baso # (Auto) (0.0-0.1) K/mm3 Abs Immat Gran (auto) (0.00-0.031) K/mm3 Absolute Neuts (auto) (1.3-6.7) K/mm3 Absolute Nucleated RBC (0.0-0.012) K/mm3 Nucleated RBC % (0.0-0.2) % PT (11.1-14.7) Seconds INR APTT (22.3-36.8) Seconds Sodium (137-145) mmol/L Potassium (3.4-5.0) mmol/L Chloride (98-107) mmol/L Carbon Dioxide (22-30) mmol/L Anion Gap (4-12) mmol/L BUN (7-17) mg/dL Creatinine (0.7-1.0) mg/dL Estim Creat Clear Calc ml/min Estimated GFR (59 - ) Glucose (65-110) mg/dL Calcium (8.4-10.2) mg/dL Total Bilirubin (0.2-1.3) mg/dL AST (14-36) U/L ALT (6-35) U/L Alkaline Phosphatase (38-126) U/L NT-Pro-B Natriuret Pep (19.9-100) pg/mL Total Protein (6.3-8.2) g/dL Albumin (3.5-5.1) g/dL Lipase (23-300) U/L TSH (Reflex) < 0.015 L (0.465-4.68) uIU/mL Free T4 > 6.99 H (0.78-2.19) ng/dL Urine Color (Yellow) Urine Appearance (Clear) Urine pH (5.0-9.0) Ur Specific [place] (1.001-1.035) Urine Protein (Negative) mg/dL Urine Glucose (UA) (Negative) mg/dL Urine Ketones (Negative) mg/dL Ur Blood (Man) (Negative) Urine Nitrate (Negative) Urine Bilirubin (Negative) Urine Urobilinogen (<2.0) mg/dL Leukocyte Esterase Rfl (Negative) OSMAN/UL POC Urine HCG, Qual (Negative) Urine Opiates Screen (Negative) Urine Methadone Screen (Negative) Ur Barbiturates Screen (Negative) Ur Phencyclidine Scrn (Negative) Ur Amphetamine Screen (Negative) U Benzodiazepines Scrn (Negative) Urine Cocaine Screen (Negative) U Cannabinoids Screen (Negative) <CRISTA Garcia Last Filed: 06/27/24 21:57> Imaging Data Radiologist's impression: ITS Impressions Chest X-Ray 06/27/24 16:15 IMPRESSION: No acute cardiopulmonary pathology. Pelvis Ultrasound 06/27/24 18:31 IMPRESSION: normal pelvic ultrasound. Abdomen/Pelvis CT 06/27/24 18:35 IMPRESSION: 1. No evidence of diverticulitis, appendicitis or intestinal obstruction. 2. Fluid in the small bowel which may indicate enteritis versus diarrhea. Clinical correlation advised. 3. Right ovarian cyst measuring 4.8 x 2.4 cm.. <CRISTA Campbell Last Filed: 06/30/24 17:15> ECG Data EKG #1: ECG completion date: 06/27/24 <CRISTA Garcia Last Filed: 06/27/24 21:57> ECG completion time: 19:17 <CRISTA Garcia Last Filed: 06/27/24 21:57> Prior ECG tracings: available for review <CRISTA Garcia Last Filed: 06/27/24 21:57> Interpretation: Sinus tachycardia Rate 124 Normal QRS Normal QT No acute ischemia findings <CRISTA Garcia Last Filed: 06/27/24 21:57> Critical Care Time Critical Care Time Critical Care Time: No <CRISTA Campbell Last Filed: 06/30/24 17:15> Discharge Plan Discharge Clinical Impression: Gastroenteritis, Abnormal TSH <CRISTA Campbell Last Filed: 06/30/24 17:15> Patient Disposition: Home, Self-Care <CRISTA Campbell Last Filed: 06/30/24 17:15> Condition: Stable <CRISTA Campbell Last Filed: 06/30/24 17:15> Instructions: Antibiotic Form <CRISTA Campbell Last Filed: 06/30/24 17:15> Additional Instructions: Your exam today showed gastroenteritis which is inflammation of the GI system. Please stay well hydrated. Use Zofran for nausea. Your labs also showed evidence of overactive thyroid and this needs to be followed with your primary care doctor. If you have any new or worsening symptoms please return to the ER for further evaluation. <Stephanie eMléndez PA-C - Last Filed: 06/30/24 17:15> Prescriptions: New ondansetron 4 mg tablet,disintegrating 4 mg PO Q8H PRN (Reason: nausea and vomiting) Qty: 10 0RF No Action amoxicillin-pot clavulanate 875-125 mg tablet 1 tablet PO Q12H Qty: 14 0RF <Stephanie Meléndez PA-C - Last Filed: 06/30/24 17:15> Follow-up/Referrals: Hubert,Homer Olson APRN [Primary Care Provider] - <Stephanie Meléndez PA-C - Last Filed: 06/30/24 17:15> Time of Disposition: 20:20 <Stephanie Meléndez PA-C - Last Filed: 06/30/24 17:15> 20:20 <Scott Red PA-C - Last Filed: 06/27/24 21:57>
[2024-06-27 15:35] LABS: BEDSIDEPREGUCG Negative (Negative)
[2024-06-27 15:42] LABS: Basophils Percent Auto 0.2 % (0.2-1.2); Eosinophils Absolute Auto 0.1 K/mm3 (0-0.3); Eosinophils Percent Auto 1.4 % (0-4.4); Hematocrit 35.7 % (37.0-47.0); Hemoglobin 11.2 g/dL (12.0-15.0); Immature Granulocyte Absolute 0.01 K/mm3 (0.00-0.031); Immature Granulocyte Percent A 0.2 % (0-0.5); Lymphocytes Absolute Auto 1.52 K/mm3 (0.9-3.2); Lymphocytes Percent Auto 35.8 % (18.3-44.2); Mean Corpuscular HGB Conc 31.4 g/dl (32-36); Mean Corpuscular Hemoglobin 25.9 pg (26-34); Mean Corpuscular Volume 82.6 fl (80-100); Mean Platelet Volume 12.1 fl (7.4-10.4); Monocytes Absolute Auto 0.5 K/mm3 (0.1-0.6); Monocytes Percent Auto 11.6 % (2.6-8.5); Neutrophils Absolute Auto 2.2 K/mm3 (1.3-6.7); Neutrophils Percent Auto 50.8 % (45.5-73.1); Platelet Count Result 196 k/mm3 (150-375); Red Blood Count 4.32 M/mm3 (4.2-5.4); Red Cell Distribution Width 11.9 % (11.5-14.5); White Blood Count 4.2 K/mm3 (4.5-10.0)
[2024-06-27 15:45] LABS: Add Urine Microscopic? NO; Appearance Urine Clear (Clear); Bilirubin Urine Negative (Negative); Blood Urine Negative (Negative); Color Urine Yellow (Yellow); Glucose Urine UA Negative (Negative); Ketones Urine Negative (Negative); Leukocyte Esterase Ur Negative LEU/UL (Negative); Nitrate Urine Negative (Negative); Protein Urine Negative (Negative); Specific Grav Ur 1.007 (1.001-1.035); pH Urine 7.5 (5.0-9.0)
[2024-06-27 15:55] LABS: Alanine Aminotransferase 34 U/L (6-35); Albumin Level 3.7 g/dL (3.5-5.1); Alkaline Phosphatase 72 U/L (38-126); Anion Gap 8 mmol/L (4-12); Aspartate Amino Transferase 30 U/L (14-36); Bilirubin,Total 0.3 mg/dL (0.2-1.3); Blood Urea Nitrogen 8 mg/dL (7-17); Calcium 8.9 mg/dL (8.4-10.2); Carbon Dioxide 29 mmol/L (22-30); Chloride 100 mmol/L (98-107); Estimated CRCL calculation 65 ml/min; Estimated Glomerular Filt Rate > 60; Glucose 139 mg/dL (65-110); Lipase 84 U/L (23-300); Potassium 3.9 mmol/L (3.4-5.0); Sodium 137 mmol/L (137-145)
[2024-06-27 15:56] LABS: Partial Thromboplastin Time 23.8 Seconds (22.3-36.8)
[2024-06-27 16:03] LABS: NT Pro B Type Natriuretic Pept 2160 pg/mL (19.9-100)
[2024-06-27 16:04] LABS: Amphetamine Screen Urine Negative (Negative); Barbiturate Screen Urine Negative (Negative); Benzodiazepines Screen Urine Negative (Negative); Cannabinoid Screen Urine Negative (Negative); Cocaine Screen Urine Negative (Negative); Methadone Screen Urine Negative (Negative); Opiate Screen Urine Negative (Negative); Phencyclidine Screen Urine Negative (Negative)
[2024-06-27] MEDS: SODIUM CHLORIDE 0.9% IV 1,000 ML 999 ML IV CONT ×2 (17:11→18:21)
[2024-06-27 17:30] VITALS: BP 123/74; PULSE 123; RESP 20; O2SAT 100
--- NOTE | 2024-06-27 18:18 | ECG_ITS ---
Test Date: 2024-06-27 19:17:12 Measurements Intervals [place] Rate: 124 P: 21 OK: 96 QRS: 72 QRSD: 90 T: 71 QT: 320 QTc: 461 Interpretive Statements SINUS TACHYCARDIA WITH SHORT OK INTERVAL BASELINE ARTIFACT- I, II, AVR, AVL, AVF, V1-V3 ABNORMAL ECG No previous ECG available for comparison Electronically Signed On 06-28-2024 08:08:01 CDT by Martir Elliott D.O.
[2024-06-27] MEDS: ONDANSETRON INJ 4 MG/2 ML VIAL IV PUSH (18:21)
[2024-06-27] MEDS: MORPHINE SULFATE (*CRX) 4 MG/ML INJ IV PUSH (18:23)
[2024-06-27 19:25] VITALS: BP 131/70; PULSE 127; RESP 19; O2SAT 100
[2024-06-27 20:12] LABS: Thyroid Stimulating Hormone Reflex < 0.015 uIU/mL (0.465-4.68)
[2024-06-27 20:33] VITALS: BP 134/78; PULSE 79; RESP 16; O2SAT 100
[2024-06-27 21:21] LABS: Free T4 Free Thyroxine Reflex > 6.99 ng/dL (0.78-2.19)
== END 2024-06-27 20:35 | disposition home or self-care (01) ==
PROVIDERS: Physician Assistant; Emergency Provider Physician Assistant; PCP Nurse Practitioner
DX: K52.9 Noninfective gastroenteritis and colitis, unspecified (principal); R94.6 Abnormal results of thyroid function studies; Z87.442 Personal history of urinary calculi; Z87.891 Personal history of nicotine dependence; N83.201 Unspecified ovarian cyst, right side; R00.0 Tachycardia, unspecified
CPT/HCPCS: 36415; 71046; 74177; 76856; 80053; 80307; 81003; 81025; 83690; 83880; 84439; 84443; 85025; 85610; 85730; 93005; 96361; 96374; 96375; 99284; J2270; J2405; J7030; Q9967

== ENCOUNTER 2025-02-23 18:56 | Emergency (ER) | payer MEDICAID, SELFPAY ==
--- OUTSIDE RECORDS SUMMARY | 2025-02-23 18:58 | XMS_ITS | Clinical Summary ---
Author Organization [facility] Address [address] [place] [address] Care Team Providers Care Combination Window Installer Name Role Phone Homer Gaspar APRN-LOOM CLEANER Primary Care Provide r Source Comments [facility]non-owned Affiliates and Associated Physician Practices is amultiple site organization consisting of ambulatory clinics and hospital sitesin [place], [place], [place] and [place]. This disclosure is being madepursuant to the Care Everywhere program and may not contain all information available regarding this patient. Last updated 18.[facility] Allergies No known active allergies Medications * Be aware that medications may not be up to date on this document. Alwaysverify current medications with the patient. QUEtiapine XR 24hr (SEROQUEL XR) 200 MG tablet Take 200 mg by mouth at bedtime Active buPROPion SR 12hr (WELLBUTRIN-SR) 150 MG tablet Take 150 mg by mouth 2 times daily Active busPIRone (BUSPAR) 15 MG tablet Take 15 mg by mouth 2 times daily Active hydrOXYzine hcl (ATARAX) 25 MG tablet Take 25 mg by mouth 4 times daily as needed for Itching Active gabapentin (NEURONTIN) 100 MG capsule Take 100 mg by mouth 3 times daily Active lamoTRIgine (LAMICTAL) 25 MG tablet Take 25 mg by mouth 2 times daily Active Loratadine 10 MG Active boric acid 600 mg capsuleIndicati ons:Vaginal discharge,Vagin al odor Use 2-3 times a week to vagina to control the discharge/od or. 30 capsule 2 12/15/2019 Active Active Problems Patient Care Coordination No te Formatting of this note migh t be different from the original. Ob consult with co-manage: [place] Problem Noted Date Diagnosed Date Chronic bilateral low back pain with left-sided sciatica 08/12/2019 Scoliosis 08/12/2019 Supervision of high-risk of young bernadette igravida 11/07/2016 Overview (11/07/2016): PNL: B+/I/-/- Ab: Neg GCT: HIV: NR GBS: Datinwk CRL H/H/Plt: 14.6/44.7/213 Hgb Elec: UDS: QS: CF: Pap: ASCUS with HPV Gc/Chl: Neg/Neg Trich: Neg UCx: Breast/Bottle: Family Planning: Bipolar disease in 11/07/2016 Overview (11/07/2016): Was on Lamotrigine and Seroquel and stopped when found out . Currently on Vistaril. Sees Dr Eckert in [place] Hepatitis B without coma 11/07/2016 Tobacco use 11/07/2016 Overview (11/07/2016): 1 PPD Marijuana use 11/07/2016 ASCUS with positive high risk HPV cervical 11/07 Overview (11/07/2016): 10/02/16 History of gestational hypertension 11/07/2016 Depression with anxiety 09/21/2015 Family History * Patient is adopted Medical History Relation Name Comments Asthma Neg Hx Autoimmune Disease Neg Hx Bipolar Disorder Neg Hx Cancer - Breast Neg Hx Cancer - Colon Neg Hx Cancer - Other Neg Hx Cancer - Ovarian Neg Hx Cancer - Pancreatic Neg Hx Cancer - Prostate Neg Hx Depression Neg Hx Eczema Neg Hx Hypertension Neg Hx Migraine Neg Hx Osteoporosis Neg Hx Seizures Neg Hx Sudd. <30 Neg Hx Thyroid Disease Neg Hx Ulcerative Colitis Neg Hx Relation Name Status Comments Father Alive Mother Alive Social History Tobacco Use Types Packs/Day Years Used Date Smoking Tobacco: Former Cigarettes 0.5 10 Smokeless Tobacco: Never Tobacco Cessation:Ready to Q uit: Yes; Counseling Given: Yes Alcohol Use Standard Drinks/Week Comments No 0 (1 standard drink = 0.6 oz pur e alcohol) Comments No Sex and Gender Information Value Date Recorded Sex Assigned at Not on file Legal Sex Female 7:32 AM PATIENT ACCESS REGISTRAR Gender Identity Not on file Sexual Orientation Not on file Last Filed Vital Signs Vital Sign Reading Time Taken Comments Blood Pressure 118/70 12/15/2019 10:20 AM CDT Pulse 98 04/16/2018 6:08 PM CDT Temperature 36.7 C (98.1 F) 04/16/2018 6:08 PM CDT Respiratory Rate 16 04/16/2018 6:08 PM CDT Oxygen Saturation 99% 04/16/2018 6:08 PM CDT Inhaled Oxygen Concentration - - Weight 63 kg (139 lb) 12/15/2019 10:20 AM CDT Height 160 cm (5' 3) 12/15/2019 10:20 AM CDT Body Mass Index 24.62 12/15/2019 10:20 AM CDT Plan of Treatment Health Maintenance Due Date Last Done Comments HIV SCREENING 2007 HEPATITIS C SCREENING 04/04/2010 DTAP/TDAP/TD VACCINES (1 - Tdap) 2011 HEPATITIS B VACCINE (1 of 3 - 19+ 3-dose series) 2011 COVID-19 VACCINE ( - 2023-2 5 season) 2024 INFLUENZA VACCINE (Season Ended) 2025 ZOSTER VACCINE (1 of 2) 2042 HIB VACCINE Aged Out No longer eligi ble based on patient's age to complete this topic HPV VACCINE Aged Out No longer eligi ble based on patient's age to complete this topic MENINGOCOCCAL (Group B) VACC INE SHARED DECISION-MAKING Aged Out No longer eligibl e based on patient's age to complete this topic MENINGOCOCCAL GROUPS A/C/Y/W VACCINE Aged Out No longer eligible b ased on patient's age to complete this topic PNEUMOCOCCAL VACCINE Aged Out No long er eligible based on patient's age to complete this topic Insurance [facility] Care Teams Combination Window Installer Relationship Specialty Start Date End Date Homer Gaspar, GROCERY CARRIER-LOOM CLEANER PCP - General 12/29/19
--- OUTSIDE RECORDS SUMMARY | 2025-02-23 19:02 | XMS_ITS | Clinical Summary ---
Author Organization [facility] Address [address] [place] [address] Care Team Providers Care Garden Machinery Mechanic Name Role Phone Homer Gaspar NP Primary Care Provider Allergies No known active allergies Medications QUEtiapine XR 200 MG 24 hr tablet Take 200 mg by mouth nightly at bedtime. Active hydrOXYzine 25 MG capsule Take 50 mg by mouth 3 (three) times daily as needed for Itching. Active busPIRone 15 MG tablet 9 Active buPROPion SR (ZYBAN) 150 MG 12 hr tabletIndications:T obacco use Take one table by mouth daily for one week then increase to two tablets daily. 90 tablet 1 9 Active hydrocodone-acetami nophen (NORCO) 5-325 MG tabletIndications:A cute Pain < 3 Day Supply Take 1 tablet by mouth every 6 (six) hours as needed for Pain. Indications: Acute Pain < 3 Day Supply 10 tablet 9 Active hydrOXYzine 25 MG tablet Take 1 tablet (25 mg total) by mouth 3 (three) times daily as needed for Itching. 20 tablet 0 Active HYDROcodone-acetami nophen (NORCO) 5-325 MG tabletIndications:A cute Pain < 3 Day Supply Take 1 tablet by mouth every 4 (four) hours. Indications: Acute Pain < 3 Day Supply 12 tablet 3 Active ondansetron (ZOFRAN-ODT) 4 MG disintegrating tablet Take 1 tablet (4 mg total) by mouth every 8 (eight) hours as needed. 15 tablet 4 Active Active Problems Problem Noted Date Diagnosed Date Chronic bilateral low back pain with left-sided sciatica 08/12/2019 Scoliosis 08/12/2019 Hair loss 06/03/2019 Bipolar disease, chronic ([facility]) 11/07 Overview (06/02/2019): Overview: Was on Lamotrigine and Seroquel and stopped when found out . Currently on Vistaril. Sees Dr Eckert in [place] History of gestational hypertension 11/07/2016 Tobacco use 11/07/2016 Overview (06/02/2019): Overview: 1 PPD Depression with anxiety 09/21/2015 Resolved Problems Problem Noted Date Diagnosed Date Resolved Date Pyelonephritis 08/15/2017 06/03/2019 Flank pain, acute 08/15/2017 06/03/2019 Hepatitis B surface antigen positive, currently ([facility]) 11/24/201603/2019 Hepatitis B without coma 11/07/201603/2019 Marijuana use 11/07/2016 06/03/2019 Supervision of high-risk pre gnancy of young multigravida ([facility]) 11/07/2016 06/03/2019 Overview (06/02/2019): Overview: PNL: B+/I/-/- Ab: Neg GCT: HIV: NR GBS: Datinwk CRL H/H/Plt: 14.6/44.7/213 Hgb Elec: UDS: QS: CF: Pap: ASCUS with HPV Gc/Chl: Neg/Neg Trich: Neg UCx: Breast/Bottle: Family Planning: Possible 06/15/2016 9 Perianal abscess 06/01/2016 06/03/2019 Perirectal abscess 06/01/2016 9 Rectal pain 06/01/2016 06/03/2019 Pelvic pain in female 05/25/20162018 Contraceptive surveillance 02/08/2016 1 Ovarian cyst, left 02/08/2016 9 Acute pharyngitis 11/08/2015 06/03/2019 Sore throat 11/08/2015 06/03/2019 Viral upper respiratory tract infection 11/08/2015 06/03/2019 Acute urinary tract infection 07/27/2015 06/03/2019 Dysuria 07/27/2015 06/03/2019 Cervical dysplasia 03/02/2015 9 Overview (06/02/2019): Overview: 10/02/16 Bacterial vaginosis 03/02/2015 06/03/20 19 Vaginal discharge 03/02/2015 06/03/2019 Family History * Patient is adopted Relation Status Comments Father Alive Mother Alive Social History Tobacco Use Types Packs/Day Years Used Date Smoking Tobacco: Every Day Cigarettes Smokeless Tobacco: Never Tobacco Cessation:Ready to Q uit: Not Asked; Counseling Given: Not Answered Alcohol Use Standard Drinks/Week Comments Yes 0 (1 standard drink = 0.6 oz pur e alcohol) soc Comments No Sex and Gender Information Value Date Recorded Sex Assigned at Not on file Legal Sex Female 8:12 PM CDT Gender Identity Not on file Sexual Orientation Not on file Last Filed Vital Signs Vital Sign Reading Time Taken Comments Blood Pressure 124/70 05/24/2024 7:00 PM CDT Pulse 112 05/24/2024 7:00 PM CDT Temperature 36.2 C (97.1 F) 05/24/2024 1:21 PM CDT Respiratory Rate 22 05/24/2024 7:00 PM CDT Oxygen Saturation 99% 05/24/2024 7:00 PM CDT Inhaled Oxygen Concentration - - Weight 61.2 kg (135 lb) 05/24/2024 1:21 PM CDT Height 160 cm (5' 3) 05/24/2024 1:21 PM CDT Body Mass Index 23.91 05/24/2024 1:21 PM CDT Plan of Treatment Health Maintenance Due Date Last Done Comments Cervical Cancer Screening Pap Smear (Age 30 to 64) Every 3 Years 1992 Annual Physical 1995 DTaP, Tdap and Td Vaccines (1 - Tdap) 2011 Hepatitis B Vaccines (1 of 3 - 19+ 3-dose series) 2011 Pneumococcal Vaccine: Pediatrics (0 to 5 Years) and At-Risk Patients (6 to 49 Years) (1 of 2 - PCV) 2011 Cervical Cancer Screening Pap with HPV Testing (Age 30 to 64) Every 5 Years 2022 Cervical Cancer Screening with HPV 2022 COVID-19 Vaccine (2023- season) 2024 Hepatitis C Completed 11/05/2018, 10/25, 11/10/2016, Additional history exists HPV Vaccines Aged Out No longer eligi ble based on patient's age to complete this topic Meningococcal B Vaccine Aged Out No l onger eligible based on patient's age to complete this topic Meningococcal Vaccine Aged Out No rochelle jian eligible based on patient's age to complete this topic RSV Immunizations Under 20 Months Aged Out No longer eligible based on patient's age to complete this topic Procedures Procedure Name Priority Date/Time Associated Diagnosis Comments HEPATITIS C ANTIBODY STAT 11/05/2018 1:57 PM CDT from Last 3 Months or Most Recently Relevant to Health Maintenance Results * HEPATITIS C ANTIBODY (11/05/2018 1:57 PM CDT) HEPATITIS C AB NON-REACTI VE NON-REACTI VE 11/05/2018 8:56 PM CDT [facility] SERUM OR PLASMA SPECIMEN / Unknown 11/05/2018 1:57 PM CDT 11/05/2018 2:08 PM CDT us Generic Conversion [facility] Final R esult [facility] [address] [place] [address], [place] [phone] from Last 3 Months or Most Recently Relevant to Health Maintenance Insurance [employer] Care Teams Garden Machinery Mechanic Relationship Specialty Start Date End Date Homer Gaspar NP [address] [place] [id number] PCP - General NURSE PRACTITIONER 11/08/19
[2025-02-23 19:05] VITALS: BP 183/83; PULSE 96; RESP 18; TEMP 36.7; O2SAT 100
--- NOTE | 2025-02-23 19:05 | ED_ITS ---
HPI - Female Genitourinary General Chief complaint: Urogenital-Female Stated complaint: UTI Time Seen by Provider: 02/23/25 19:05 Source: patient and RN notes reviewed Mode of arrival: ambulatory Limitations: no limitations History of Present Illness HPI Narrative: 34 y/o female presented for c/o burning with urination, frequency, urgency and strong smell for about 3 weeks. Endorses the urine is cloudy despite trying to drink more water. Reports pressure to low abdomen worse when bending over. Denies hematuria, nausea, vomiting, flank pain, constipation, diarrhea, fevers or chills. Denies concern for STD, says she was tested last week by pcp but did not check urine. Related Data Home Medications ?Medication ?Instructions ?Recorded ?Confirmed ?Last Taken ?Type methimazole 10 mg tablet mg 02/23/25 Unknown History Allergies Allergy/AdvReac Type Severity Reaction Status Date / Time phenazopyridine (From AdvReac Intermediate Nausea and Verified 02/23/25 18:58 Pyridium) Vomiting Review of Systems Review of Systems: CONSTITUTIONAL: Denies body aches, fever, chills, or sweats. CARDIOVASCULAR: Denies chest pain, palpitations, or edema. RESPIRATORY: Denies cough or dyspnea. GASTROINTESTINAL: Denies abdominal pain, nausea, vomiting, or diarrhea. GENITOURINARY: Reports dysuria, frequency, urgency, denies hematuria, flank pain, discharge SKIN: Denies rash, itching, or wounds. MUSCULOSKELETAL: Denies back pain or myalgia. [facility] Past Medical History Medical History Bipolar disorder Kidney stones 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 Scoliosis Surgical History Surgical History History of adenoidectomy History of spinal surgery 02/2020 History of tubal ligation Family History Family History Father Alive and well Mother Alive and well Social History Social History Years smoked: 12 Smoking status: Light tobacco smoker Tobacco type: e-cigarettes/vaping Second hand tobacco smoke exposure: No Additional smoking assessment comments: Quit 4 months ago Alcohol intake: current Substance use: never Lack of Transportation: No Lack of Food: Never True Current Housing: I Have Housing Concerned About Future Housing: No Difficulty Paying Gas/Electric Bills: No Difficulty Paying for Meds: No Currently Unemployed: No Education: Associate Degree Difficulty w/ Childcare or Family Care: No Living arrangements: with family Occupation/Education: occupation Additional occupation/education comments: self employed Gender identity (if verbalized by the patient): Female Sexual Orientation (if Verbalized by the Patient): Straight or Heterosexual Comments At time of signature, I have reviewed and agree with nursing past medical, surgical, social and family history unless otherwise noted. Please see nursing chart for further information. There is no relevant family history pertinent to the presenting complaint Exam Narrative: GENERAL: Well-appearing and in no acute distress. ENT: Mucous membranes pink and moist. NECK: Normal AROM. Supple. CHEST: No respiratory distress. Clear to auscultation. HEART: Regular rate and rhythm. ABDOMEN: Soft, tender across low abdomen, nondistended, normal active bowel sounds. No CVA tenderness SKIN: Warm, dry, no rash. NEURO: No focal deficits. Alert and oriented x3. Gait steady. PSYCH: Normal affect. Course Course Emergency Course: Patient is aware of diagnosis, understands and agrees to treatment plan. Anticipatory guidance given. Patient agrees to follow-up as directed and is aware of reasons to seek care at the emergency department. Portions of this record may have been created with voice recognition software Level of Care: Express Care Visit Vital Signs Vital signs: Vital Signs Temperature 98.0 F 02/23/25 19:05 Pulse Rate 96 02/23/25 19:05 Respiratory Rate 18 02/23/25 19:05 Blood Pressure 183/83 H 02/23/25 19:05 Pulse Oximetry 100 02/23/25 19:05 Oxygen Delivery Room Air 02/23/25 19:05 Temperature 98.0 F 02/23/25 19:05 Pulse Rate 96 02/23/25 19:05 Respiratory Rate 18 02/23/25 19:05 Blood Pressure 183/83 H 02/23/25 19:05 Pulse Oximetry 100 02/23/25 19:05 Oxygen Delivery Room Air 02/23/25 19:05 Reviewed MDM - Female Genitourinary MDM Narrative Medical decision making narrative: Discussed physical exam findings and urine dip, will culture. Pt is aware of elevated BP reading, currently reporting increase in stress at home. Advised sup portive measures and signs/symptoms to go to the ER. Pt is appropriate for outpt treatment and f/u. Differential Diagnosis Differential diagnosis: Likely urinary tract infection, bacterial vaginosis, vaginitis and cystitis Discharge Plan Discharge Clinical Impression: Dysuria Patient Disposition: Home Condition: Stable Instructions: Antibiotic Form, Urinary Tract Infection in Women (ED) Additional Instructions: Your blood pressure reading was elevated (above 120/80) please follow-up with your primary care provider for further evaluation and management. If you develop worsening Blood Pressure symptoms, (headache, vision changes, dizziness, vomiting, chest pain, etc) go to the ER. Call 911. Your urine will be sent of for a culture to determine if bacteria is causing your symptoms. If the culture shows a UTI, you will be notified and an antibiotic will be called in for you. Stay hydrated you will need to follow up with your PCP, call to schedule follow-up appointment. Go to the ER for any worsening symptoms or concerns. Patient Language: Nepalese Prescriptions: No Action methimazole 10 mg tablet Follow-up/Referrals: Jose Su MD [Primary Care Provider] - Time of Disposition: 19:21
[2025-02-23 19:13] LABS: EDUAAPPEAR Cloudy; EDUABILI Negative (Negative); EDUABLOOD Trace (Negative); EDUACOLOR1 Yellow; EDUAGLUCOSE Negative (Negative); EDUAKETONE Negative (Negative); EDUALEUKO Negative (Negative); EDUANITRATE Negative (Negative); EDUAPROTEIN Trace (Negative); EDUAUROBILI 0.2
== END 2025-02-23 19:30 | disposition home or self-care (01) ==
PROVIDERS: Emergency Provider Nurse Practitioner Family; PCP Internal Medicine
DX: R30.0 Dysuria (principal); Z87.891 Personal history of nicotine dependence; M41.9 Scoliosis, unspecified
CPT/HCPCS: 81003; 87086; 99213; G0463

== ENCOUNTER 2025-04-27 12:29 | Emergency (ER) | payer OTHER, SELFPAY ==
--- OUTSIDE RECORDS SUMMARY | 2025-04-27 12:32 | XMS_ITS | Clinical Summary ---
Author Organization [facility] Address [address] [place] [address] Care Team Providers Care Electrical Tech Name Role Phone Homer Gaspar APRN-SUGARCANE PLANTER Primary Care Provide r Source Comments [facility],non-owned Affiliates and Associated Physician Practices is amultiple site organization consisting of ambulatory clinics and hospital sitesin [place], [place], [place] and [place]. This disclosure is being madepursuant to the Care Everywhere program and may not contain all information available regarding this patient. Last updated 18.[facility] Allergies No known active allergies Medications * [...] a week to vagina to control the discharge/odor. 30 capsule 2 0 Active Additional Information Patient not taking.Reported on 03/12/2025 atenolol (Tenormin) 25 MG tablet Take 1 (one) tablet by mouth once daily 90 tablet 4 5 Active methIMAzole (Tapazole) 10 MG tablet Take 3 (three) tablets by mouth once daily 270 tablet 5 5 Active Active Problems Patient Care Coordination No te Formatting of this note migh t be different from the original. Ob consult with co-manage: [place] Problem Noted Date Diagnosed Date Chronic bilateral low back pain with left-sided sciatica 08/12/2019 Scoliosis 08/12/2019 Supervision of high-risk of young bernadette saman 11/07/2016 Overview (11/07/2016): PNL: B+/I/-/- Ab: Neg GCT: HIV: NR GBS: Datinwk CRL H/H/Plt: 14.6/44.7/213 Hgb Elec: UDS: QS: CF: Pap: ASCUS with HPV Gc/Chl: Neg/Neg Trich: Neg UCx: Breast/Bottle: Family Planning: Bipolar disease in 11/07/2016 Overview (11/07/2016): Was on Lamotrigine and Seroquel and stopped when found out . Currently on Vistaril. Sees Dr Eckert in [place] Hepatitis B without coma 11/07/2016 Tobacco use 11/07/2016 Overview (11/07/2016): 1 PPD Marijuana use 11/07/2016 ASCUS with positive high risk HPV cervical 11/07 Overview (11/07/2016): 10/02/16 History of gestational hypertension 11/07/2016 Depression with anxiety 09/21/2015 Encounters Date Type Department Care Team Description 03/12/2025 2:15 PM CDT - 03/12/2025 11:59 PM CDT Hospital Encounter [facility] [place] [facility] [address] [place] [address] Discharge Disposition: Home or Self Care 03/12/2025 1:00 PM CDT [facility] Endocrinology [address] [place] [address] [phone] Peter Aguirre MD Hyperthyroidism (Primary Dx) 03/12/2025 Travel from Last 3 Months Family History * Patient is adopted Medical [...] on file Legal Sex Female 7:32 AM IMMERSION METALCLEANER Gender Identity Not on file Sexual Orientation Not on file Last Filed Vital Signs Vital Sign Reading Time Taken Comments Blood Pressure 176/97 03/12/2025 1:01 PM CDT Pulse 92 03/12/2025 1:01 PM CDT Temperature 36.7 C (98.1 F) 04/16/2018 6:08 PM CDT Respiratory Rate 16 04/16/2018 6:08 PM CDT Oxygen Saturation 96% 03/12/2025 1:01 PM CDT Inhaled Oxygen Concentration - - Weight 54.4 kg (120 lb) 03/12/2025 1:01 PM CDT Height 160 cm (5' 3) 12/15/2019 10:20 AM CDT Body Mass Index 21.26 12/15/2019 10:20 AM CDT Plan of Treatment Upcoming Encounters Date Type Department Care Team (Late st Contact Info) Description 07/16/2025 3:20 PM IMMERSION METALCLEANER Office Visit [facility] - Endocrinology [address] [place] [address] [phone] Peter Aguirre MD [address] [place] [address] Health Maintenance Due Date Last Done Comments HIV SCREENING 2007 DTAP/TDAP/TD VACCINES (1 - Tdap) 2011 HEPATITIS B VACCINE (1 of 3 - 19+ 3-dose series) 2011 PAP SMEAR 2013 HPV VACCINE (1 - 3-dose SCDM series) 2019 COVID-19 VACCINE (1 - 2023-2 5 season) 2024 INFLUENZA VACCINE (#1) 2025 ZOSTER VACCINE (1 of 2) 2042 HEPATITIS C SCREENING Completed 11/05/2018 HIB VACCINE Aged Out No longer eligi [...] Procedure Name Priority Date/Time Associated Diagnosis Comments TSH Routine 03/12/2025 2:22 PM CDT Hyperthyroidism T3 FREE Routine 03/12/2025 2:22 PM CDT Hyperthyroidism T4 FREE Routine 03/12/2025 2:22 PM CDT Hyperthyroidism THYROID STIMULATING IMMUNOGLOBULIN (TSI) Routine 03/12/2025 2:22 PM CDT Hyperthyroidism from Last 3 Months Results * (ABNORMAL) THYROID STIMULATING IMMUNOGLOBULIN (TSI) (03/12/2025 2:22 PM CDT) Thyroid Stimulating Immunoglobulin TSI 6.83(H) <=0.54 IU/L 03/14/2025 3:20 AM CDT [facility] Comment: INTERPRETIVE INFORMATION: Thyroid Stimulating Immunoglobulin (TSI) 0.54 IU/L or less.........Consistent with healthy thyroid function or non-Graves thyroid or autoimmune disease. Those with healthy thyroid function typically have results less than 0.1 IU/L. 0.55 IU/L or greater......Consistent with Graves disease (autoimmune hyperthyroidism) This assay specifically detects thyroid stimulating autoantibodies. For diagnostic purposes, the results obtained from this assay should be used in combination with clinical examination, patient medical history, and other findings. Performed By: [facility] [address] [place] [address] Grain Loader: Dong Edgar MD, PhD CLIA Number: [id number] Blood BLOOD SPECIMEN / Unknown Lab Venipuncture / Unknown 03/12/2025 2:22 PM CDT 03/12/2025 2:40 PM CDT Peter Aguirre MD LAB - CHEMISTRY ORDERABLES Fin al Result Performing Organization Address City/[facility] Co de Phone Number [facility] [address] [place] [phone] [place] [address] * (ABNORMAL) T3 FREE (03/12/2025 2:22 PM CDT) Pathologist [facility] T3 Free 3.9(H) 1.7 - 3.7 pg/mL 03/12/2025 4:10 PM CDT [facility] Blood BLOOD SPECIMEN / Unknown Lab Venipuncture / Unknown 03/12/2025 2:22 PM CDT 03/12/2025 2:40 PM CDT Peter Aguirre MD LAB - CHEMISTRY ORDERABLES Fin al Result [facility] [address] [place] [address], [facility] [phone] * (ABNORMAL) TSH (03/12/2025 2:22 PM CDT) TSH <0.010(L) 0.350 - 4.940 uIU/mL 03/12/2025 4:10 PM CDT [facility] Blood BLOOD SPECIMEN / Unknown Lab Venipuncture / Unknown 03/12/2025 2:22 PM CDT 03/12/2025 2:40 PM CDT Peter Aguirre MD LAB - CHEMISTRY ORDERABLES Fin al Result [address] [address], [place] [phone] * T4 FREE (03/12/2025 2:22 PM CDT) T4 Free 1.5 0.7 - 1.5 ng/dL 03/12/2025 4:10 PM CDT [facility] Blood BLOOD SPECIMEN / Unknown Lab Venipuncture / Unknown 03/12/2025 2:22 PM CDT 03/12/2025 2:40 PM CDT Peter Aguirre MD LAB - CHEMISTRY ORDERABLES Fin al Result Performing Organization Address City/[facility]/ZIP Co de Phone Number [address] [address], [place] [phone] from Last 3 Months Insurance [facility] MEDICAID - [place] Care Teams Electrical Tech Relationship Specialty Start Date End Date Homer Gaspar, BLAINE-SUGARCANE PLANTER PCP - General 12/29/19
--- OUTSIDE RECORDS SUMMARY | 2025-04-27 12:32 | XMS_ITS | Clinical Summary ---
Author Organization [facility] Office Center Address [address] [place] [address] Care Team Providers Care Manager Retail Sales Name Role Phone Larry Marissa Betancur NP Unavailable [phone] Jose Su MD Primary Care Provider [phone] Allergies No known active allergies Medications gabapentin (NEURONTIN) 300 mg capsule Take 300 mg by mouth 2 (two) times a day 0 Active hydrOXYzine (VISTARIL) 50 mg capsule TAKE 1 CAPSULE BY MOUTH 3 TIMES A DAY NEEDED FOR ANXIETY 0 Active ibuprofen (ADVIL,MOTRIN) 600 mg tablet 600 mg 0 Active QUEtiapine (SEROquel) 200 mg tablet Take 200 mg by mouth nightly 0 Active carisoprodoL (SOMA) 350 mg tabletIndication s:Muscle Spasm Take 1 tablet (350 mg total) by mouth 3 (three) times a day as needed for muscle spasms 60 tablet 0 Active baclofen (LIORESAL) 10 mg tablet Take 1 tablet (10 mg total) by mouth 4 (four) times a day as needed for muscle spasms 60 tablet 0 Active oxyCODONE-acetam inophen (PERCOCET) 7.5-325 mg per tabletIndication s:Pain Take 1-2 tablets every 4 hours as needed for pain 60 tablet 0 Active promethazine (PHENERGAN) 25 mg suppository Insert 1 suppository (25 mg total) into the rectum every 6 (six) hours as needed for nausea or vomiting 21 each 0 Active cyclobenzaprine (FLEXERIL) 10 mg tablet Take 1 tablet (10 mg total) by mouth 2 (two) times a day as needed for muscle spasms 20 tablet 3 Active lidocaine (LIDODERM) 5 % Place 1 patch on the skin daily for 7 days Remove & discard patch within 12 hours or as directed by MD. 7 patch 4 Active propranoloL (INDERAL) 10 mg tablet Take 1 tablet (10 mg total) by mouth daily 30 tablet 2 5 06/08/20 25 Active LORazepam (Ativan) 1 mg tablet Take 1 tablet (1 mg total) by mouth 3 (three) times a day as needed for anxiety for up to 10 days 10 tablet 5 Active Active Problems No known active problems Encounters Date Type Department Care Team Description 03/11/2025 10:06 PM CDT - 03/11/2025 11:41 PM T [facility] Emergency Department [address] [place] [address] Discharge Disposition: Left without being seen 03/10/2025 5:03 PM CDT - 03/10/2025 7:43 PM T [facility] Emergency Department [address] [place] [address] Domenic Kidd MD Hyperthyroidism (Primary Dx); Palpitations Discharge Disposition: Discharge to home or self care from Last 3 Months Surgical History Surgery Date Site/Laterality Comments TUBAL LIGATION Medical History Medical History Date Comments Depression Hypertension Kidney stone Family History Medical History Relation Name Comments Heart disease Father Relation Name Status Comments Father Social History Tobacco Use Types Packs/Day Years Used Date Smoking Tobacco: Never Smokeless Tobacco: Former Alcohol Use Standard Drinks/Week Comments Yes 0 (1 standard drink = 0.6 oz pur e alcohol) social Personal Safety Answer Date Recorded Have you ever been in or are you currently in a harmful physical or emotional relationship or is someone making you feel afraid or unsafe? Denies 03/11/2025 Comments Unknown Sex and Gender Information Value Date Recorded Sex Assigned at Not on file Legal Sex Female 8:47 PM [employer] Gender Identity Not on file Sexual Orientation Not on file Obstetrics History Last Filed Vital Signs Vital Sign Reading Time Taken Comments Blood Pressure 146/90 03/10/2025 7:42 PM CDT Pulse 95 03/10/2025 7:42 PM CDT Temperature 36.9 C (98.5 F) 03/10/2025 7:42 PM CDT Respiratory Rate 16 03/10/2025 7:42 PM CDT Oxygen Saturation 99% 03/10/2025 7:42 PM CDT Inhaled Oxygen Concentration - - Weight 56 kg (123 lb 7.3 oz) 03/11/2025 10:13 PM CDT Height 160 cm (5' 3) 03/10/2025 4:34 PM CDT Body Mass Index 21.87 03/10/2025 4:34 PM CDT Plan of Treatment Health Maintenance Due Date Last Done Comments Cervical Cancer Screening 1992 Depression Screening 1992 Hepatitis C Screening 1992 Varicella Vaccines (1 of 2 - 13+ 2-dose series) 2005 Regular Well Visit/Exam 18-64 2010 HPV Vaccines (1 - 3-dose SCD M series) 2019 Covid-19 Vaccine (3 - 2023-2 5 season) 2024 03/10/2022, 02/17/2022 Influenza Vaccine (#1) 2025 05/22/2017 DTaP/Tdap/Td Vaccine (2 - Td or Tdap) 03/03/2026 03/03/2016 Pneumococcal vaccine <65 Aged Out No longer eligible based on patient's age to complete this topic Procedures Procedure Name Priority Date/Time Associated Diagnosis Comments XR CHEST 1 VIEW ED 03/11/2025 10:59 PM CDT EGFR STAT 03/11/2025 10:19 PM CDT DIFFERENTIAL AUTO STAT 03/11/2025 10: 19 PM CDT TROPONIN T HIGH-SENSITIVITY SERIES (BASELINE, 2HR, 4HR, 6HR) STAT 03/11/2025 10:19 PM CDT COMPREHENSIVE METABOLIC PANEL STAT 03/11/2025 10:19 PM CDT CBC WITH AUTO DIFFERENTIAL STAT 03/11/2025 10:19 PM CDT ECG 12-LEAD STAT 03/11/2025 10:13 PM CDT TROPONIN T HIGH-SENSITIVITY 2-HOUR Timed 03/10/2025 6:32 PM CDT XR CHEST PA LATERAL 2 VIEWS ED 03/10/2025 4:53 PM CDT POCT HCG, URINE Routine 03/10/2025 4:53 PM CDT URINALYSIS, MICROSCOPIC ONLY STAT 03/10/2025 4:46 PM CDT DRUGS OF ABUSE SCREEN, URINE WITHOUT CONFIRMATION STAT 03/10/2025 4:46 PM CDT URINALYSIS AND REFLEX TO MICROSCOPIC AND CULTURE STAT 03/10/2025 4:46 PM CDT T4, FREE STAT 03/10/2025 4:40 PM CDT MAGNESIUM STAT 03/10/2025 4:40 PM CDT THYROID FUNCTION CASCADE STAT 03/10/2025 4:40 PM CDT D-DIMER, QUANTITATIVE STAT 03/10/2025 4:40 PM CDT PRO B-TYPE NATRIURETIC PEPTIDE STAT 03/10/2025 4:40 PM CDT EGFR STAT 03/10/2025 4:38 PM CDT DIFFERENTIAL AUTO STAT 03/10/2025 4:3 8 PM CDT TROPONIN T HIGH-SENSITIVITY SERIES (BASELINE, 2HR, 4HR, 6HR) STAT 03/10/2025 4:38 PM CDT COMPREHENSIVE METABOLIC PANEL STAT 03/10/2025 4:38 PM CDT CBC WITH AUTO DIFFERENTIAL STAT 03/10/2025 4:38 PM CDT ECG 12-LEAD STAT 03/10/2025 4:33 PM CDT from Last 3 Months Results * XR Chest 1 Vw Portable (If patient hemodynamically UNstable or UNable to ambulate) (03/11/2025 10:59 PM CDT) Anatomical Region Laterality Modality Body, Chest N/A Computed Radiogr aphy 03/11/2025 11:4 0 PM CDT Narrative 03/11/2025 11:47 PM CDT EXAM DESCRIPTION: XR CHEST 1 VIEW REASON FOR STUDY: chest pain Patient was seen here yesterday for chest pain tachycardia, was told it was related to her thyroid , states she was prescribed propranolol and did take it today. States symptoms went away but started again a few hours ago. Rates chst pain 6/10, also endorses palpitations and SOB. TECHNIQUE: Frontal radiographic view(s) of the chest. COMPARISON: [id number] FINDINGS: LUNGS: The lungs are clear. No focal pulmonary parenchymal consolidation, pleural effusion, or pneumothorax. HEART/MEDIASTINUM: Cardiac silhouette normal in size. Mediastinal and hilar contours appear normal. LINES/TUBES: None. BONES: No acute osseous abnormality. IMPRESSION: No acute cardiopulmonary abnormality. THIS IS AN ELECTRONICALLY VERIFIED FINAL REPORT 03/11/2025 11:47 PM - Electronically signed by Warren Kulkarni M.D. AT: AT Report ID: [id number] Reading Location: [id number] Procedure Note Warren Kulkarni MD - 03/11/2025 EXAM DESCRIPTION: XR CHEST 1 VIEW REASON FOR STUDY: chest pain Patient was seen here yesterday for chest pain tachycardia, was told itwas related to her thyroid , states she was prescribed propranolol and didtake it today. States symptoms went away but started again a few hours ago. Rateschst pain 02/03, also endorses palpitations and SOB. TECHNIQUE: Frontal radiographic view(s) of the chest. COMPARISON: [id number] FINDINGS: LUNGS: The lungs are clear. No focal pulmonary parenchymal consolidation, pleural effusion, or pneumothorax. HEART/MEDIASTINUM: Cardiac silhouette normal in size. Mediastinal andhilar contours appear normal. LINES/TUBES: None. BONES: No acute osseous abnormality. IMPRESSION: No acute cardiopulmonary abnormality. THIS IS AN ELECTRONICALLY VERIFIED FINAL REPORT 03/11/2025 11:47 PM - Electronically signed by Warren Kulkarni M.D. AT: AT Report ID: [id number] Reading Location: [place] [address] us Brie Awad MD IMG XR PROCEDURES Final Result * Troponin T high-sensitivity series (baseline, 2hr, 4hr, 6hr) (03/11/2025 10:19 PM CDT) Pathologist [facility] Trop T hs 14 <=14 ng/L Comment: Interpretive Data For further hscTnT resources including the diagnostic algorithm and an aid in interpretation, copy and paste this link: https://nrl.testcatalog.org/show/hsTrop Current Interpretive Data last revised 2020. Testing performed by: [facility], [address] [place] [address]., [address] Blood 03/11/2025 10:1 9 PM CDT 03/11/2025 10:22 PM CDT Brie Awad MD LAB BLOOD ORDERABLES Fin al Result RADHA [address] [facility] Department [place] [address] * eGFR (03/11/2025 10:19 PM CDT) eGFR >90 >=60 mL/min/1. 73 m2 Comment: Interpretive Data Reference Interval Normal >/= 90 mL/min/1.73m2 Mildly decreased* 60 - 89 mL/min/1.73m2 Mildly to moderately decreased 45 - 59 mL/min/1.73m2 Moderately to severely decreased 30 - 44 mL/min/1.73m2 Severely decreased 15 - 29 mL/min/1.73m2 Kidney Failure < 15 mL/min/1.73m2 *Relative to young adult level Estimated glomerular filtration rate is determined by the 2020 CKD-EPI equation recommended by the National Kidney Foundation (A Unifying Approach to GFR Estimation: Recommendations of the NKF-ASK Task Force on Reassessing the Inclusion of Race in Diagnosing Kidney Disease, JASN 2020). The CKD-EPI equation should not be used for patients with unstable renal function and has not been validated in children and those over 70. Current interpretive data was last reviewed 2021. Testing performed by: [address] [address] Blood 03/11/2025 10:1 9 PM CDT 03/11/2025 10:22 PM CDT us Brie Awad MD LAB BLOOD ORDERABLES Fin al Result RADHA [address] [facility] Department [place] [address] * Differential, auto (03/11/2025 10:19 PM CDT) Pathologist [facility] Neutrophil abs 3.57 1.50 - 6.50 K/cumm Comment:Testing performed by : [address] [address] Imm gran abs 0.02 0.00 - 0.10 K/cumm RADHA Comment:Testing performed by : [address] [address] Lymphocyte abs 2.57 0.80 - 3.30 K/cumm RADHA Comment:Testing performed by : [address] [address] Monocyte abs 0.47 0.20 - 0.80 K/cumm RADHA Comment:Testing performed by : [address] [address] Eosinophil abs 0.13 0.00 - 0.50 K/cumm RADHA Comment:Testing performed by : [address] [address] Basophil abs 0.01 0.00 - 0.10 K/cumm [facility] Comment:Testing performed by : [address] [address] Neutrophil pct 52.8 % [facility] Comment: Interpretive Data Percent cell count reference ranges are not reported, since discordance with absolute values may lead to misinterpretation of CBC data. Current Interpretive Data was last revised on 2017. Testing performed by: [address] [address] Imm gran pct 0.3 % [facility] Comment: Interpretive Data Percent cell count reference ranges are not reported, since discordance with absolute values may lead to misinterpretation of CBC data. Current Interpretive Data was last revised on 2017. Testing performed by: [address] [address] Lymphocyte pct 38.0 % [facility] Comment: Interpretive Data Percent cell count reference ranges are not reported, since discordance with absolute values may lead to misinterpretation of CBC data. Current Interpretive Data was last revised on 2017. Testing performed by: [address] [address] Monocyte pct 6.9 % [facility] Comment: Interpretive Data Percent cell count reference ranges are not reported, since discordance with absolute values may lead to misinterpretation of CBC data. Current Interpretive Data was last revised on 2017. Testing performed by: [address] [address] Eosinophil pct 1.9 % [facility] Comment: Interpretive Data Percent cell count reference ranges are not reported, since discordance with absolute values may lead to misinterpretation of CBC data. Current Interpretive Data was last revised on 2017. Testing performed by: [address] [address] Basophil pct 0.1 % RAD[facility] Comment: Interpretive Data Percent cell count reference ranges are not reported, since discordance with absolute values may lead to misinterpretation of CBC data. Current Interpretive Data was last revised on 2017. Testing performed by: [address] [address] Blood 03/11/2025 10:1 9 PM CDT 03/11/2025 10:22 PM CDT us Brie Awad MD LAB BLOOD ORDERABLES Fin al Result [facility] [address] [facility] Department [place] [address] * (ABNORMAL) CBC with auto differential (03/11/2025 10:19 PM CDT) WBC 6.77 3.80 - 9.90 K/cumm Comment:Testing performed by : [address] [address] Hgb 13.8 11.9 - 15.5 g/dL RADHA Comment:Testing performed by : [address] [address] Hct 40.8 35.6 - 45.5 % RAD[facility] Comment:Testing performed by : [address] [address] Plt 252 150 - 400 K/cumm RADHA Comment:Testing performed by : [address] [address] MPV 11.3 9.1 - 12.3 fL RADHA Comment:Testing performed by : [address] [address] RBC 5.27(H) 3.90 - 5.20 M/cumm RADHA Comment:Testing performed by : [address] [address] MCV 77.4(L) 81.3 - 96.4 fL RADHA Comment:Testing performed by : [address] [address] MCH 26.2(L) 27.1 - 33.3 pg RADHA GARCIA Comment:Testing performed by : [address] [address] MCHC 33.8 32.3 - 35.7 g/dL RADHA GARCIA Comment:Testing performed by : [address] [address] RDW CV 13.2 11.1 - 14.9 % [facility] GARCIA Comment:Testing performed by : [address] [address] RDW SD 37.2 35.7 - 48.1 fL RADHA GARCIA Comment:Testing performed by : [address] [address] NRBC abs 0.00 0.00 - 0.01 K/cumm RAD[facility] GARCIA Comment:Testing performed by : [address] [address] Blood Venous blood specimen / Unknown 03/11/2025 10:19 PM CDT 03/11/2025 10:22 PM CDT us Brie Awad MD LAB BLOOD ORDERABLES Fin al Result RADHA [facility]GR[facility] Department of Laboratories [place], [place] [id number] * (ABNORMAL) Comprehensive metabolic panel (03/11/2025 10:19 PM CDT) Sodium 140 135 - 145 mmol/L Comment:Testing performed by : [address] [address] Potassium, pl 4.0 3.3 - 4.9 mmol/L RADHA GARCIA Comment:Testing performed by : [address] [address] Chloride 106 97 - 110 mmol/L RAD[facility] GARCIA Comment:Testing performed by : [address] [address] CO2 22 22 - 32 mmol/L RAD[facility] GARCIA Comment:Testing performed by : [address] [address] Anion gap 12 2 - 15 mmol/L RADHA Comment:Testing performed by : [address] [address] BUN 7 6 - 25 mg/dL [facility] Comment:Testing performed by : [address] [address] Creatinine 0.67 0.60 - 1.10 mg/dL RADHA Comment:Testing performed by : [address] [address] Glucose 118 70 - 199 mg/dL [facility] Comment: Interpretive Data Fasting glucose >/= 126 mg/dl is diagnostic for diabetes. Fasting is defined as no caloric intake for at least 8 hours. Fasting glucose between 100 mg/dl to 125 mg/dl is diagnostic of prediabetes. In a patient with classic symptoms of hyperglycemia or hyperglycemic crisis, a random glucose >/= 200 mg/dl is diagnostic for diabetes. In the absence of unequivocal hyperglycemia, results should be confirmed by repeat testing. The classification and Diagnosis of Diabetes Diabetes Care 2021; 46: S19-S40. Current interpretive data was last revised 2022. Testing performed by: [address] [address] Calcium 8.8 8.5 - 10.3 mg/dL [facility] Comment:Testing performed by : [address] [address] Bilirubin, total 0.2 0.1 - 1.2 mg/dL [facility] Comment:Testing performed by : [address] [address] Protein, pl 6.7 6.5 - 8.5 g/dL [facility] Comment:Testing performed by : [address] [address] Albumin 3.9 3.5 - 5.0 g/dL [facility] Comment:Testing performed by : [address] [address] Alk phos 177(H) 40 - 130 Units/L RADHA Comment:Testing performed by : [address] [address] ALT 17 7 - 45 Units/L [facility] GARCIA Comment:Testing performed by : [facility], [address] [place] [address]., [address] AST 19 10 - 45 Units/L RADHA Comment:Testing performed by : [facility], [address] [place] [address]., [address] Blood 03/11/2025 10:1 9 PM CDT 03/11/2025 10:22 PM CDT Brie Awad MD LAB BLOOD ORDERABLES Fin al Result Performing Organization Address City/[facility]/ZIP Co de Phone Number RADHA [address] [facility] Department [place] [address] * ECG 12 lead (03/11/2025 10:13 PM CDT) Ventricular Rate EKG/Min 83 BPM [facility] Atrial Rate 83 BPM [facility] UT-Interval (MSEC) 116 ms [facility] QRS-Interval (MSEC) 94 ms [facility] QT-Interval (MSEC) 404 ms [facility] QTc 474 ms [facility] P [place] 63 degrees [facility] R [place] 40 degrees [facility] T [place] 71 degrees [facility] Diagnosis Normal sinus rhythm Normal ECG When compared with ECG of 10-MAR-2025 16:33, Vent. rate has decreased BY 41 BPM Confirmed by KHADIJAH PULIDO M.D. ([id number]) on 03/13/2025 9:36:13 PM [facility] 03/11/2025 10:1 3 PM CDT 03/13/2025 9:36 PM CDT us Brie Awad MD ECG ORDERABLES Final Re sult Performing Organization Address City/[facility]/ZIP Co de Phone Number [facility] [employer] [facility] * Troponin T high-sensitivity 2-hour (03/10/2025 6:32 PM CDT) Trop T hs <6 <=14 ng/L Comment: Interpretive Data For further hscTnT resources including the diagnostic algorithm and an aid in interpretation, copy and paste this link: https://nrl.testcatalog.org/show/hsTrop Current Interpretive Data last revised 2020. Testing performed by: [facility], [address] [place] [address]., [address] Trop T hs delta 0 ng/L RAD[facility] GARCIA Comment:Testing performed by : [facility], [address] [place] [address]., [address] Trop T hs interp Insignificant RAD[facility] GARCIA Comment:Testing performed by : [facility], [address] [place] [address]., [address] Blood 03/10/2025 6:32 PM CDT 03/10/2025 6:35 PM CDT us Domenic Kidd MD LAB BLOOD ORDERABLE S Final Result RADHA GARCIA [address] [facility] Department [place] [address] * XR Chest PA Lateral 2 Views (If patient hemodynamically stable and ambulatory) (03/10/2025 4:53 PM CDT) Anatomical Region Laterality Modality Body, Chest N/A Computed Radiogr aphy 03/10/2025 5:23 PM CDT Narrative 03/10/2025 5:24 PM CDT EXAM DESCRIPTION: XR CHEST PA LATERAL 2 VIEWS REASON FOR STUDY: chest pain Pt c/o rapid heart, sob, diarrhea, dizziness and cp x 1 month. States she saw pmd and he told her that symptoms were related to her thyroid so he put her on methimazole. States she continues to have symptoms. Also states she has had insomnia. States only getting approx 3 hrs of sleep. TECHNIQUE: 2 radiographic view(s) of the chest. COMPARISON: 11/05/2022 FINDINGS: LUNGS: The lungs are clear. No focal pulmonary parenchymal consolidation, pleural effusion, or pneumothorax. HEART/MEDIASTINUM: Cardiac silhouette normal in size. Mediastinal and hilar contours appear normal. LINES/TUBES: None. BONES: No acute osseous abnormality. IMPRESSION: No acute cardiopulmonary abnormality. THIS IS AN ELECTRONICALLY VERIFIED FINAL REPORT 03/10/2025 5:24 PM - Electronically signed by Warren Kulkarni M.D. AT: AT Report ID: [id number] Reading Location: [id number] Procedure Note Warren Kulkarni MD - 03/10/2025 EXAM DESCRIPTION: XR CHEST PA LATERAL 2 VIEWS REASON FOR STUDY: chest pain Pt c/o rapid heart, sob, diarrhea, dizziness and cp x 1 month. States shesaw pmd and he told her that symptoms were related to her thyroid so he puther on methimazole. States she continues to have symptoms. Also states she hashad insomnia. States only getting approx 3 hrs of sleep. TECHNIQUE: 2 radiographic view(s) of the chest. COMPARISON: 11/05/2022 FINDINGS: LUNGS: The lungs are clear. No focal pulmonary parenchymal consolidation, pleural effusion, or pneumothorax. HEART/MEDIASTINUM: Cardiac silhouette normal in size. Mediastinal andhilar contours appear normal. LINES/TUBES: None. BONES: No acute osseous abnormality. IMPRESSION: No acute cardiopulmonary abnormality. THIS IS AN ELECTRONICALLY VERIFIED FINAL REPORT 03/10/2025 5:24 PM - Electronically signed by Warren Kulkarni M.D. AT: AT Report ID: [id number] Reading Location: [id number] Domenic Kidd MD IMG XR PROCEDURES F inal Result * POCT hCG, urine (03/10/2025 4:53 PM CDT) HCG, ur, POC Negative Negative Comment:Testing performed by : [address] [address] POC Performer [id number] RADHA GARCIA Comment:Testing performed by : [address] [address] Urine 03/10/2025 4:53 PM CDT 03/10/2025 4:53 PM CDT us Notinfile Unknown LAB POCT ORDERABLES - DEVICE F inal Result RADHA GARCIA [address] [facility] Department [place] [address] * (ABNORMAL) Urinalysis reflex to microscopic and culture Urine (03/10/2025 4:46 PM CDT) Color, ur Yellow Yellow Comment:Testing performed by : [address] [address] Clarity, ur Clear Clear RADHA Comment:Testing performed by : [address] [address] Specific gravity, ur 1.029 1.003 - 1.030 RADHA Comment:Testing performed by : [address] [address] pH, urine 5.5 RADHA Comment: Interpretive Data U rine pH is affected by diet, medications, systemic acid-base disturbances, and renal tubular function. pH may affect urinary stone formation. For example, urine pH below 6.0 may help reduce the tendency for calcium phosphate stones and pH greater than 6.0 may reduce the tendency for uric acid stone formation. Source: [facility] [employer] Current Interpretive Data was last revised on 2017 Testing performed by: [address] [address] Protein, ur ql Negative Negative RADHA Comment:Testing performed by : [address] [address] Glucose, ur ql Negative Negative RADHA Comment:Testing performed by : [address] [address] Ketones, ur 1+(A) Negative RADHA GARCIA Comment:Testing performed by : [address] [address] Bilirubin, ur Negative Negative RADHA Comment:Testing performed by : [address] [address] Blood, ur Trace(A) Negative RADHA GARCIA Comment:Testing performed by : [address] [address] Urobilinogen, ur <2.0 <2.0 mg/dL RADHA GARCIA Comment:Testing performed by : [address] [address] Nitrite, ur Negative Negative RADHA GARCIA Comment:Testing performed by : [address], [place]., [address] Leukocyte esterase, ur Negative Negative RADHA GARCIA Comment:Testing performed by : [address] [address] UA reflex comment Reflex to microscopic UA will be performed. RADHA GARCIA Comment:Testing performed by : [address], [place]., [address] Urine 03/10/2025 4:46 PM CDT 03/10/2025 4:49 PM CDT Domenic Kidd MD LAB MICROBIOLOGY - GENERAL ORDERABLES Final Result RAD[facility] Department [place] [address] * (ABNORMAL) Drugs of Abuse Screen, Urine without Confirmation (03/10/2025 4:46 PM CDT) Amphetamine, ur Not Detected CutOff 500ng/mL Comment: Interpretive Data - Amphetamines: Samples containing greater than 500 ng/mL d-methamphetamine or other cross-reacting amphetamine compounds are reported as positive. Amphetamine immunoassays are subject to significant false positive rates due to cross-reactivity of non-amphetamine drugs. Confirmatory testing required for definitive results. Current Interpretive Data was last reviewed 2023. Testing performed by: [address] [address] Barbiturates, ur Not Detected CutOff 200ng/mL RADHA GARCIA Comment: Interpretive Data - Barbiturates: Samples containing greater than 200 ng/mL secobarbital or other cross-reacting barbiturate compounds are reported as positive. False positive and false negative results are possible. Confirmatory testing required for definitive results. Current Interpretive Data was last reviewed 2023. Testing performed by: [facility] [address] [address] Benzodiazepines, ur Not Detected CutOff 100ng/mL [facility] Comment: Interpretive Data - Benzodiazepines: Samples containing greater than 100 ng/mL nordiazepam or other cross-reacting compounds are reported as positive. False positive and false negative results are possible. Confirmatory testing required for definitive results. Current Interpretive Data was last reviewed 2023. Testing performed by: [address] [address] Cannabinoids, ur Screen Positive, presumptive (A) CutOff 50 ng/mL [facility] Comment: Interpretive Data - Cannabinoids: Samples containing greater than 50 ng/mL delta-9 THC -COOH or other cross- reacting compounds are reported as positive. False positive and false negative results are possible. Confirmatory testing required for definitive results. Current Interpretive Data was last reviewed 2023. Testing performed by: [address] [address] Cocaine, ur Not Detected CutOff 150ng/mL [facility] Comment: Interpretive Data - Cocaine: Samples containing greater than 150 ng/mL benzoylecgonine or other cross- reacting compounds are reported as positive. False positive and false negative results are possible. Confirmatory testing required for definitive results. Current Interpretive Data was last reviewed 2023. Testing performed by: [address] [address] Fentanyl, Ur Not Detected CutOff 5 ng/mL [facility] Comment: Interpretive Data - Fentanyl: Samples containing greater than 1 ng/mL fentanyl or other cross-reacting fentanyl compounds are reported as positive. False positive and false negative results are possible. Confirmatory testing required for definitive results. Current Interpretive Data was last reviewed 2023. Testing performed by: [address] [address] Methadone, ur Not Detected CutOff 300ng/mL [facility] Comment: Interpretive Data - Methadone: Samples containing greater than 300 ng/mL d,l-methadone or other cross-reacting compounds are reported as positive. False positive and false negative results are possible. Confirmatory testing required for definitive results. Current Interpretive Data was last reviewed 2023. Testing performed by: [address] [address] Opiates, ur Not Detected CutOff 300ng/mL [facility] Comment: Interpretive Data - Opiates: Samples containing greater than 300 ng/mL morphine or other cross-reacting compounds are reported as positive. False positive and false negative results are possible. Confirmatory testing required for definitive results. Current Interpretive Data was last reviewed 2023. Testing performed by: [address] [address] Oxycodone, ur Not Detected CutOff 100ng/mL [facility] Comment: Interpretive Data - Oxycodone: Samples containing greater than 100 ng/mL oxycodone or other cross-reacting compounds are reported as positive. False positive and false negative results are possible. Confirmatory testing required for definitive results. Current Interpretive Data was last reviewed 2023. Testing performed by: [address] [address] Phencyclidine, ur Not Detected CutOff 25 ng/mL [facility] Comment: Interpretive Data - Phencyclidine: Samples containing greater than 25 ng/mL phencyclidine or other cross-reacting compounds are reported as positive. False positive and false negative results are possible. Confirmatory testing required for definitive results. Current Interpretive Data was last reviewed 2023. Testing performed by: [address] [address] Urine Creatinine 210 mg/dL [facility] Comment: Interpretive Data Urine Creatinine: < 10 mg/dL is extremely dilute = or > 10 but < 20 mg/dL is dilute = or > 20 mg/dL is normal Current Interpretive Data was last revised on 2017. Testing performed by: [address] [address] Urine 03/10/2025 4:46 PM CDT 03/10/2025 4:49 PM CDT Narrative [facility] 03/10/2025 5:18 PM CDT Drug of Abuse screening is performed by immunoassay for medical purposes only. This is not to be used for Pain Management purposes. Domenic Kidd MD LAB URINE ORDERABLE S Final Result RAD[facility] [place] [address] * (ABNORMAL) Urinalysis, microscopic only (03/10/2025 4:46 PM CDT) WBC, ur 0-5 0 - 5 /HPF Comment:Testing performed by : [facility], [address] [place] [address]., [address] RBC, ur 3-5(A) 0 - 2 /HPF [facility] Comment:Testing performed by : [address], [place]., [address] Epithelial cells, squamous, ur 21-50(A) 0 - 5 /HPF [facility] Comment:Testing performed by : [address], [place]., [address] Mucous, ur Present(A) [facility] Comment:Testing performed by : [address], [place]., [address] Culture Reflex Comment Reflex conditions for urine culture (WBC >10) not met. [facility] Comment:Testing performed by : [facility], [address] [place] [address], [place]., [address] Urine 03/10/2025 4:46 PM CDT 03/10/2025 4:49 PM CDT us Domenic Kidd MD LAB URINE ORDERABLE S Final Result Performing Organization Address [facility] Co de Phone Number ANSHUL[address] [place] [address] * (ABNORMAL) Pro B-type natriuretic peptide (03/10/2025 4:40 PM CDT) NT-proBNP 628(H) <=300 pg/mL Comment: Interpretive Comments: A. Dyspnea in Acute Care Setting All Ages: < 300 pg/ml, acute heart failure unlikely. < 50 yrs: 300 - 450 pg/ml, further investigation warranted. > 450 pg/ml, acute heart failure likely. 50 - 74 yrs: 300 - 900 pg/ml, further investigation warranted. > 900 pg/ml, acute heart failure likely . > or = 75 yrs: 450 - 1800 pg/ml, further investigation warranted. > 1800 pg/ml, acute heart failure likely. B. Non-acute Setting < 75 yrs < 125 pg/ml, rules out heart failure. > or = 125 pg/ml, further investigation warranted. > or = 75 yrs < 450 pg/ml, rules out heart failure. > or = 450 pg/ml, further investigation warranted. - Knowledge of each individual patient's NT-proBNP range may be more useful than using similar cut-points for every patient. Please note that marked elevations in NT-proBNP levels may be observed in state other than Left Ventricular Congestive Failure, including: acute coronary syndromes, right heart strain/failure (including pulmonary embolism and cor pulmonale), critical illness, renal failure, as well as advanced age. - References: 1. Zahida ALBERTO et.al. Eur Heart J. 2006:27:330-337. 2. Verito RW, [place] HUNG. J. AM Sandra Cardiol: Cardiovasc Imag. 2009;2: 216- 225. Interpretive Data Last Revised Date: 2018. Testing performed by: [address] [address] Blood 03/10/2025 4:40 PM CDT 03/10/2025 4:45 PM CDT Domenic Kidd MD LAB BLOOD ORDERABLE S Final Result [facility] [address] [facility] Department [place] [address] * (ABNORMAL) Thyroid Function [place] (03/10/2025 4:40 PM CDT) TSH <0.01(L) 0.30 - 4.20 mcIUnit/mL Comment:Testing performed by : [address] [address] Blood 03/10/2025 4:40 PM CDT 03/10/2025 4:45 PM CDT Domenic Kidd MD LAB BLOOD ORDERABLE S Final Result Performing Organization Address City/[facility] Co de Phone Number RADHA [address] [address] * D-dimer, quantitative (03/10/2025 4:40 PM CDT) D-Dimer <270 <=499 ng/mL FEU Comment: Interpretive data FDA approved the D-dimer, in conjunction with a low or moderate pretest probability score, to exclude venous thromboembolic events (VTE) (PE and DVT) in outpatients when the D-dimer result is < 500 ng/ml FEU. Evidence supports using an age-adjusted D-dimer cut-off for outpatients older than 50 (age x 10) to improve specificity without sacrificing sensitivity. Example: age 68, VTE cut-off 680 ng/ml FEU. References; Sonia HT et al. Brit Med J. 2013;346:f2492. Ester et al. Annals Int Med. 2015;163:701-11. Current interpretive data was last revised on 2019. Testing performed by: [address] [address] Blood 03/10/2025 4:40 PM CDT 03/10/2025 4:45 PM CDT Domenic Kidd MD LAB BLOOD ORDERABLE S Final Result Performing Organization Address City/[facility] Co de Phone Number [place] [phone] [facility] [place] [address] * (ABNORMAL) T4, free (03/10/2025 4:40 PM CDT) Free T4 2.46(H) 0.90 - 1.70 ng/dL Comment:Testing performed by : [address] [address] Blood 03/10/2025 4:40 PM CDT 03/10/2025 4:45 PM CDT Narrative [facility] - 03/10/2025 5:52 PM CDT This test was reflexed from a TSH result. Domenic Kidd MD LAB BLOOD ORDERABLE S Final Result Performing Organization Address City/[facility] Co de Phone Number RADHA [address] [address] * Magnesium (03/10/2025 4:40 PM CDT) Magnesium 1.9 1.4 - 2.5 mg/dL Comment:Testing performed by : [address] [address] Blood 03/10/2025 4:40 PM CDT 03/10/2025 4:45 PM CDT Domenic Kidd MD LAB BLOOD ORDERABLE S Final Result Performing Organization Address [facility] de Phone Number ANSH[address] [address] * Troponin T high-sensitivity series (baseline, 2hr, 4hr, 6hr) (03/10/2025 4:38 PM CDT) Trop T hs <6 <=14 ng/L Comment: Interpretive Data For further hscTnT resources including the diagnostic algorithm and an aid in interpretation, copy and paste this link: https://nrl.testcatalog.org/show/hsTrop Current Interpretive Data last revised 2020. Testing performed by: [address] [address] Blood 03/10/2025 4:38 PM CDT 03/10/2025 4:45 PM CDT Domenic Kidd MD LAB BLOOD ORDERABLE S Final Result Performing Organization Address City/[facility] Co de Phone Number ANSHUL[address] [address] * eGFR (03/10/2025 4:38 PM CDT) eGFR >90 >=60 mL/min/1. 73 m2 Comment: Interpretive Data Reference Interval Normal >/= 90 mL/min/1.73m2 Mildly decreased* 60 - 89 mL/min/1.73m2 Mildly to moderately decreased 45 - 59 mL/min/1.73m2 Moderately to severely decreased 30 - 44 mL/min/1.73m2 Severely decreased 15 - 29 mL/min/1.73m2 Kidney Failure < 15 mL/min/1.73m2 *Relative to young adult level Estimated glomerular filtration rate is determined by the 2020 CKD-EPI equation recommended by the National Kidney Foundation (A Unifying Approach to GFR Estimation: Recommendations of the NKF-ASK Task Force on Reassessing the Inclusion of Race in Diagnosing Kidney Disease, JASN 2020). The CKD-EPI equation should not be used for patients with unstable renal function and has not been validated in children and those over 70. Current interpretive data was last reviewed 2021. Testing performed by: [address] [address] Blood 03/10/2025 4:38 PM CDT 03/10/2025 4:45 PM CDT us Domenic Kidd MD LAB BLOOD ORDERABLE S Final Result RADHA [address] [facility] Department [place] [address] * Differential, auto (03/10/2025 4:38 PM CDT) Pathologist [facility] Neutrophil abs 3.04 1.50 - 6.50 K/cumm Comment:Testing performed by : [address] [address] Imm gran abs 0.01 0.00 - 0.10 K/cumm RAD[facility] Comment:Testing performed by : [address] [address] Lymphocyte abs 1.71 0.80 - 3.30 K/cumm [facility] Comment:Testing performed by : [address] [address] Monocyte abs 0.35 0.20 - 0.80 K/cumm [facility] Comment:Testing performed by : [address] [address] Eosinophil abs 0.02 0.00 - 0.50 K/cumm [facility] Comment:Testing performed by : [address] [address] Basophil abs 0.00 0.00 - 0.10 K/cumm [facility] Comment:Testing performed by : [address] [address] Neutrophil pct 59.3 % [facility] Comment: Interpretive Data Percent cell count reference ranges are not reported, since discordance with absolute values may lead to misinterpretation of CBC data. Current Interpretive Data was last revised on 2017. Testing performed by: [address] [address] Imm gran pct 0.2 % [facility] Comment: Interpretive Data Percent cell count reference ranges are not reported, since discordance with absolute values may lead to misinterpretation of CBC data. Current Interpretive Data was last revised on 2017. Testing performed by: [address] [address] Lymphocyte pct 33.3 % [facility] Comment: Interpretive Data Percent cell count reference ranges are not reported, since discordance with absolute values may lead to misinterpretation of CBC data. Current Interpretive Data was last revised on 2017. Testing performed by: [address] [address] Monocyte pct 6.8 % [facility] Comment: Interpretive Data Percent cell count reference ranges are not reported, since discordance with absolute values may lead to misinterpretation of CBC data. Current Interpretive Data was last revised on 2017. Testing performed by: [address] [address] Eosinophil pct 0.4 % [facility] Comment: Interpretive Data Percent cell count reference ranges are not reported, since discordance with absolute values may lead to misinterpretation of CBC data. Current Interpretive Data was last revised on 2017. Testing performed by: [address] [address] Basophil pct 0.0 % [facility] Comment: Interpretive Data Percent cell count reference ranges are not reported, since discordance with absolute values may lead to misinterpretation of CBC data. Current Interpretive Data was last revised on 2017. Testing performed by: [address] [address] Blood 03/10/2025 4:38 PM CDT 03/10/2025 4:45 PM CDT us Domenic Kidd MD LAB BLOOD ORDERABLE S Final Result [facility]0 [facility] Department [place] [address] * (ABNORMAL) CBC with auto differential (03/10/2025 4:38 PM CDT) WBC 5.13 3.80 - 9.90 K/cumm Comment:Testing performed by : [address] [address] Hgb 13.4 11.9 - 15.5 g/dL [facility] GARCIA Comment:Testing performed by : [address] [address] Hct 39.5 35.6 - 45.5 % [facility] GARCIA Comment:Testing performed by : [address] [address] Plt 205 150 - 400 K/cumm [facility] GARCIA Comment:Testing performed by : [address] [address] MPV 11.1 9.1 - 12.3 fL [facility] GARCIA Comment:Testing performed by : [address] [address] RBC 5.08 3.90 - 5.20 M/cumm [facility] GARCIA Comment:Testing performed by : [address] [address] MCV 77.8(L) 81.3 - 96.4 fL [facility] GARCIA Comment:Testing performed by : [address] [address] MCH 26.4(L) 27.1 - 33.3 pg [facility] GARCIA Comment:Testing performed by : [address] [address] MCHC 33.9 32.3 - 35.7 g/dL [facility] GARCIA Comment:Testing performed by : [address] [address] RDW CV 13.0 11.1 - 14.9 % [facility] GARCIA Comment:Testing performed by : [address] [address] RDW SD 37.2 35.7 - 48.1 fL [facility] GARCIA Comment:Testing performed by : [address] [address] NRBC abs 0.00 0.00 - 0.01 K/cumm [facility] GARCIA Comment:Testing performed by : [address] [address] Blood Venous blood specimen / Unknown 03/10/2025 4:38 PM CDT 03/10/2025 4:45 PM CDT us Domenic Kidd MD LAB BLOOD ORDERABLE S Final Result [facility] GARC[facility] Department of Laboratories [place], [place] [id number] * (ABNORMAL) Comprehensive metabolic panel (03/10/2025 4:38 PM CDT) Sodium 138 135 - 145 mmol/L Comment:Testing performed by : [address] [address] Potassium, pl 3.1(L) 3.3 - 4.9 mmol/L [facility] GARCIA Comment:Testing performed by : [address] [address] Chloride 103 97 - 110 mmol/L [facility] GARCIA Comment:Testing performed by : [address] [address] CO2 23 22 - 32 mmol/L [facility] GARCIA Comment:Testing performed by : [address] [address] Anion gap 12 2 - 15 mmol/L [facility] Comment:Testing performed by : [address] [address] BUN 3(L) 6 - 25 mg/dL [facility] Comment:Testing performed by : [address] [address] Creatinine 0.50(L) 0.60 - 1.10 mg/dL [facility] Comment:Testing performed by : [address] [address] Glucose 98 70 - 199 mg/dL [facility] Comment: Interpretive Data Fasting glucose >/= 126 mg/dl is diagnostic for diabetes. Fasting is defined as no caloric intake for at least 8 hours. Fasting glucose between 100 mg/dl to 125 mg/dl is diagnostic of prediabetes. In a patient with classic symptoms of hyperglycemia or hyperglycemic crisis, a random glucose >/= 200 mg/dl is diagnostic for diabetes. In the absence of unequivocal hyperglycemia, results should be confirmed by repeat testing. The classification and Diagnosis of Diabetes Diabetes Care 202; 46: S19-S40. Current interpretive data was last revised 2022. Testing performed by: [address] [address] Calcium 9.2 8.5 - 10.3 mg/dL RAD[facility] Comment:Testing performed by : [address] [address] Bilirubin, total 0.3 0.1 - 1.2 mg/dL [facility] Comment:Testing performed by : [address] [address] Protein, pl 7.3 6.5 - 8.5 g/dL [facility] Comment:Testing performed by : [address] [address] Albumin 4.4 3.5 - 5.0 g/dL [facility] Comment:Testing performed by : [address] [address] Alk phos 190(H) 40 - 130 Units/L [facility] Comment:Testing performed by : [facility], [address] [place] [address]., [address] ALT 18 7 - 45 Units/L [facility] GARCIA Comment:Testing performed by : [address] [address] AST 19 10 - 45 Units/L [facility] Comment:Testing performed by : [address] [address] Blood 03/10/2025 4:38 PM CDT 03/10/2025 4:45 PM CDT us Domenic Kidd MD LAB BLOOD ORDERABLE S Final Result Performing Organization Address City/[facility]/ZIP Co de Phone Number [facility] [address] [facility] [place] [address] * ECG 12 lead (03/10/2025 4:33 PM CDT) Ventricular Rate EKG/Min 124 BPM [facility] Atrial Rate 124 BPM [facility] UT-Interval (MSEC) 120 ms [facility] QRS-Interval (MSEC) 90 ms [facility] QT-Interval (MSEC) 338 ms [facility] QTc 485 ms [facility] P [place] 69 degrees [facility] R [place] 54 degrees [facility] T [place] 61 degrees [facility] Diagnosis Sinus tachycardia Biatrial enlargement Abnormal ECG When compared with ECG of 04-NOV-2022 23:55, Vent. rate has increased BY 44 BPM Confirmed by SULTAN LAU M.D. ([id number]) on 03/10/2025 9:50:59 PM [facility] 03/10/2025 4:33 PM CDT 03/10/2025 9:50 PM CDT us Domenic Kidd MD ECG ORDERABLES Fin al Result [facility] from Last 3 Months Insurance [facility] Care Teams Manager Retail Sales Relationship Specialty Start Date End Date Jose Su MD [address] [place] [address] [place] [address] PCP - General Internal Medicine 03/10/25 Marissa Juarez NP Nurse Practitioner Nurse Practitioner 03/22/20
[2025-04-27 12:53] VITALS: BP 163/100; PULSE 86; RESP 18; TEMP 36.9; O2SAT 100
--- NOTE | 2025-04-27 12:57 | ED.URI ---
HPI - URI/Sore Throat General Chief Complaint: Upper Respiratory Infection Stated Complaint: sore throat / head pain Time Seen by Provider: 04/27/25 12:57 Source: patient, RN notes reviewed and old records reviewed Mode of arrival: ambulatory Limitations: no limitations History of Present Illness HPI Narrative: 35 year old female who presents to [facility] care with complaints of one week duration of cough, nasal congestion and drainage, sore throat, frontal sinus pressure and pain. Patient reports that daughter recently treated for strep throa. Patient reports that she has had intermittent fevers with highest noted at 102F. She reports that she has taken sone Tylenol for her sympoms MD elicited complaint: cough, sore throat, rhinorrhea, nasal congestion and sinus pain Onset (ago): week(s) (1) Severity: moderate Pain scale (0-10): 6 Able to tolerate fluids by mouth: Yes Treatments prior to arrival: acetaminophen Related Data Home Medications ?Medication ?Instructions ?Recorded ?Confirmed ?Last Taken ?Type methimazole 10 mg tablet mg 02/23/25 Unknown History atenolol 25 mg tablet mg 04/27/25 Unknown History diazepam 5 mg tablet mg 04/27/25 Unknown History Allergies Allergy/AdvReac Type Severity Reaction Status Date / Time phenazopyridine (From AdvReac Intermediate Nausea and Verified 04/27/25 12:45 Pyridium) Vomiting Review of Systems Review of Systems: CONSTITUTIONAL: Reports malaise, chills, sweats, or fever. EYES: Denies visual changes, redness, or discharge. ENT: Reports rhinorrhea, congestion, sinus pain, no otalgia and positive for sore throat. CARDIOVASCULAR: Denies chest pain, palpitations, or edema. RESPIRATORY: Reports cough.? Denies dyspnea. GASTROINTESTINAL: Denies abdominal pain, nausea, vomiting, diarrhea SKIN: Denies rash or itching. MUSCULOSKELETAL: Denies myalgia. NEUROLOGIC: Reports frontal headache . 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 Bipolar disorder Scoliosis Kidney stones Surgical History Surgical History History of spinal surgery 02/2020 History of tubal ligation History of adenoidectomy Family History Family History Father Alive and well Mother Alive and well Social History Social History Years smoked: 12 Smoking status: Light tobacco smoker Tobacco type: e-cigarettes/vaping Second hand tobacco smoke exposure: No Additional smoking assessment comments: Quit 4 months ago Alcohol intake: current Substance use: never Lack of Transportation: No Lack of Food: Never True Current Housing: I Have Housing Concerned About Future Housing: No Difficulty Paying Gas/Electric Bills: No Difficulty Paying for Meds: No Currently Unemployed: No Education: Associate Degree Difficulty w/ Childcare or Family Care: No Living arrangements: with family Occupation/Education: occupation Additional occupation/education comments: self employed Gender identity (if verbalized by the patient): Female Sexual Orientation (if Verbalized by the Patient): Straight or Heterosexual Comments At time of signature, agree with nursing past medical, surgical, social and family history. There is no relevant family history pertinent to the presenting complaint Exam Narrative: GENERAL: Well-appearing, well-nourished, and in no acute distress. HEAD: Normocephalic EYES: PERRLA, conjunctivae clear ENT: Nares clear, turbinates edematous and erythematous, clear discharge, frontal sinus pressure. Mucous membranes moist. TM pearly cardenas with dull light reflex bilaterally; no tragal tenderness. Oropharynx erythematous without lesions. Tonsils red minimally enlarged and without exudate, no drooling, no hoarseness, no trismus, uvula midline, post nasal drainage NECK: Supple. No lymphadenopathy CHEST: Clear to auscultation, breath sounds equal. No wheezing, rhonchi, rales, or stridor. No respiratory distress, speaks in full sentences.cough noted SAO2 100% on room air HEART: Regular rate and rhythm. No murmur heard. SKIN: Warm, dry, no rash. NEURO: Alert and oriented x3. PSYCH: Normal mood and affect Course Course Emergency Course: Patient is aware of diagnosis, understands and agrees to treatment plan.? Anticipatory guidance given.? Patient agrees to follow-up as directed and is aware of reasons to seek care at the emergency department. Portions of this record may have been created with voice recognition software Level of Care: Express Care Visit Vital Signs Vital signs: Vital Signs Temperature 36.9 C 04/27/25 12:53 Pulse Rate 86 04/27/25 12:53 Respiratory Rate 18 04/27/25 12:53 Blood Pressure 163/100 H 04/27/25 12:53 Pulse Oximetry 100 04/27/25 12:53 Oxygen Delivery Room Air 04/27/25 12:53 Temperature 36.9 C 04/27/25 12:53 Pulse Rate 86 04/27/25 12:53 Respiratory Rate 18 04/27/25 12:53 Blood Pressure 163/100 H 04/27/25 12:53 Pulse Oximetry 100 04/27/25 12:53 Oxygen Delivery Room Air 04/27/25 12:53 Reviewed MDM - URI/Sore Throat MDM Narrative Medical decision making narrative: Differential diagnosis considered: Card virus, strep pharyngitis, allergic rhinitis, upper respiratory tract infection, sinusitis, rhinosinusitis, nasopharyngitis. viral pharyngitis, otitis media, otitis externa, pneumonia, bronchitis, viral cough syndrome, viral syndrome, and influenza.? Exam findings show no acute concerns or changes; patient is non-toxic appearing and is in no distress.? Patient is appropriate for outpatient treatment and follow-up. Differential Diagnosis Differential diagnosis: Likely upper respiratory infection, sinusitis, viral infection, influenza, pharyngitis and other (strep pharyngitis, COVID) Medical Records Attestation: I reviewed the patient's medical records. Lab Data Attestation: I reviewed the patient's lab results. Lab results narrative: strep screen negative, strep culture sent, Influenza A negative, Influenza B negative, COVID antigen negative Labs: Lab Results 04/27/25 Range/Units 13:02 POC Influenza A Ag Negative (Negative) POC Influenza B Ag Negative (Negative) POC SARS CoV-2 Ag Negative (Negative) POC Grp A Strep Screen Negative (Negative) reviewed Critical Care Time Critical Care Time Critical Care Time: No Discharge Plan Discharge Clinical Impression: Sinusitis Qualifiers: Sinusitis location: pansinusitis Chronicity: acute Recurrence: not specified as recurrent Qualified Code(s): J01.40 - Acute pansinusitis, unspecified Patient Disposition: Home Condition: Stable Instructions: Antibiotic Form, Sinusitis (ED), Upper Respiratory Infection (ED) Additional Instructions: Increase fluids especially juices and water [id number] cough and cold medicine of your choice for your symptoms Zyrtec Claritin or Karen daily Tylenol or ibuprofen for fever pain heat to the face 20-30 minutes 4-6 times a day for pain Salt water gargles, throat lozenges or throat sprays as desired Antibiotic as directed--finished the medication Make sure to continue your thyroid medication and Atenolol If your symptoms persist, change or worsen significantly before you can contact your personal physician then please, without delay, go to the emergency department for further evaluation. Follow-up with PCP in 7-10 days or sooner if needed Follow up with PCP soon in regards to your blood pressure which is elevated above threshold for referral. Blood pressure above 120/80 may indicate pre-hypertension. blood pressure 163/100 Patient Language: Indonesian Prescriptions: New amoxicillin 875 mg tablet 875 mg PO Q12H Qty: 20 0RF No Action methimazole 10 mg tablet atenolol 25 mg tablet diazepam 5 mg tablet Follow-up/Referrals: Jose Su MD [Primary Care Provider, Hospitalist] Time of Disposition: 13:25 Quality Corona Coma Scale Eyes: Open Verbal: Oriented and Alert Motor: Follows Commands Corona Coma Total Score: 15
[2025-04-27 13:04] LABS: EDCOVIDSCREEN Negative (Negative); EDINFLUASCREEN Negative (Negative); EDINFLUBSCREEN Negative (Negative); EDSTREPNEGPOS1 Negative (Negative)
== END 2025-04-27 13:34 | disposition home or self-care (01) ==
PROVIDERS: Emergency Provider Registered Nurse; PCP Internal Medicine
DX: J01.40 Acute pansinusitis, unspecified (principal); Z20.822 Contact with and (suspected) exposure to COVID-19; Z87.891 Personal history of nicotine dependence; M41.9 Scoliosis, unspecified
CPT/HCPCS: 87081; 87426; 87804; 87880; 99213; G0463

== ENCOUNTER 2025-06-12 11:08 | Emergency (ER) | payer OTHER, SELFPAY ==
[2025-06-12 11:20] VITALS: BP 159/101; PULSE 81; RESP 18; TEMP 36.8; O2SAT 100
[2025-06-12 11:55] LABS: EDCOVIDSCREEN Negative (Negative); EDINFLUASCREEN Negative (Negative); EDINFLUBSCREEN Negative (Negative)
[2025-06-12 11:55] LABS: EDSTREPNEGPOS1 Negative (Negative)
--- NOTE | 2025-06-12 11:58 | ED_ITS ---
HPI - URI/Sore Throat General Chief Complaint: Upper Respiratory Infection Stated Complaint: n/v/fever Time Seen by Provider: 06/12/25 11:30 Source: patient and RN notes reviewed Mode of arrival: ambulatory Limitations: no limitations History of Present Illness HPI Narrative: 35-year-old female presents Express Care complaining of upper respiratory symptoms for approximately 2 months. Patient reports a cough, mucopurulent nasal drainage, sinus pressure, headaches have not resolved over the last 2 months. Since then patient has developed fevers, worsening headaches, worsening pressure, nausea, vomiting common swollen lymph nodes over the last 2 days. Patient has a history Graves disease, currently on medications for it. Patient reports headache feels ago pressure in the front of her head. Patient daily keep fluids in water down, she can keep some food down. Patient denies any chest pain, difficulty breathing, abdominal pain, diarrhea, dizziness, lightheadedness, or any other symptoms. Patient has been taking in help with symptoms. Related Data Home Medications ?Medication ?Instructions ?Recorded ?Confirmed ?Last Taken ?Type methimazole 10 mg tablet mg 02/23/25 Unknown History atenolol 25 mg tablet mg 04/27/25 Unknown History diazepam 5 mg tablet mg 04/27/25 Unknown History Allergies Allergy/AdvReac Type Severity Reaction Status Date / Time phenazopyridine (From AdvReac Intermediate Nausea and Verified 06/12/25 12:00 Pyridium) Vomiting Review of Systems Review of Systems: CONSTITUTIONAL: Denies fever, chills, or sweats. EYES: Denies visual changes, redness, or discharge. ENT: Positive for congestion, sore throat, or otalgia. CARDIOVASCULAR: Denies chest pain, palpitations, or edema. RESPIRATORY: Denies cough or dyspnea. GASTROINTESTINAL: Denies abdominal pain, nausea, vomiting, or diarrhea. GENITOURINARY: Denies dysuria or hematuria. SKIN: Denies rash or itching. MUSCULOSKELETAL: Denies back pain, joint pain, or myalgia. NEUROLOGIC: Denies headache, numbness, or weakness. PSYCHIATRIC: Denies anxiety or depression. All other systems reviewed are negative, except as documented in HPI. 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 Bipolar disorder Scoliosis Kidney stones Surgical History Surgical History History of spinal surgery 02/2020 History of tubal ligation History of adenoidectomy Family History Family History Father Alive and well Mother Alive and well Social History Social History Years smoked: 12 Smoking status: Light tobacco smoker Tobacco type: e-cigarettes/vaping Second hand tobacco smoke exposure: No Additional smoking assessment comments: Quit 4 months ago Alcohol intake: current Substance use: never Lack of Transportation: No Lack of Food: Never True Current Housing: I Have Housing Concerned About Future Housing: No Difficulty Paying Gas/Electric Bills: No Difficulty Paying for Meds: No Currently Unemployed: No Education: Associate Degree Difficulty w/ Childcare or Family Care: No Living arrangements: with family Occupation/Education: occupation Additional occupation/education comments: self employed Gender identity (if verbalized by the patient): Female Sexual Orientation (if Verbalized by the Patient): Straight or Heterosexual Comments At the time of my signature, I reviewed and agree with the nursing past medical, surgical, social, and family history. There is no relevant family history pertinent to the patient complaint. Exam Narrative: GENERAL: This is a well-nourished, well-developed adult, in no apparent distr ess. They are non ill-appearing, nontoxic appearing. HEAD: normocephalic, atraumatic. EYES: Sclera clear/white. Conjunctiva normal. Vision is grossly intact. Extraocular movements intact EARS: External ears normal, auditory canals clear and without drainage, TMs normal without perforation. Hearing grossly intact. NOSE: External nose normal with no obvious nasal discharge, nasal turbinates wit hout redness, no rhinorrhea. THROAT: Mucous membranes moist, posterior pharynx clear, without erythema or swelling. Uvula midline. NECK: Neck supple, non-tender without lymphadenopathy, masses or thyromegaly. CARDIOVASCULAR: Regular rate and rhythm without murmurs, gallops, or rubs. RESPIRATORY: Clear to auscultation. Breath sounds equal bilaterally. No wheezes, rales, or rhonchi. GASTROINTESTINAL: Abdomen soft, non-tender, nondistended. Bowel sounds are active. No hepato-splenomegaly, or palpable masses. No guarding. SKIN: warm, Dry, intact with no suspicious lesions or rash, good texture and turgor. NEURO: awake, alert, and oriented to person, place and time. There were no obvious focal neurologic abnormalities. EXTREMITIES: No joint tenderness, effusion, or edema noted. BACK: Nontender without deformity. No CVA tenderness. Course Course Emergency Course: Portions of this record may have been created with voice recognition software Level of Care: Express Care Visit Vital Signs Vital signs: Vital Signs Temperature 98.3 F 06/12/25 11:20 Pulse Rate 81 06/12/25 11:20 Respiratory Rate 18 06/12/25 11:20 Blood Pressure 159/101 H 06/12/25 11:20 Pulse Oximetry 100 06/12/25 11:20 Oxygen Delivery Room Air 06/12/25 11:20 Temperature 98.3 F 06/12/25 11:20 Pulse Rate 81 06/12/25 11:20 Respiratory Rate 18 06/12/25 11:20 Blood Pressure 159/101 H 06/12/25 11:20 Pulse Oximetry 100 06/12/25 11:20 Oxygen Delivery Room Air 06/12/25 11:20 Reviewed MDM - URI/Sore Throat Lab Data Labs: Lab Results 06/12/25 06/12/25 Range/Units 11:53 11:54 POC Influenza A Ag Negative (Negative) POC Influenza B Ag Negative (Negative) POC SARS CoV-2 Ag Negative (Negative) POC Grp A Strep Screen Negative (Negative) Critical Care Time Critical Care Time Critical Care Time: No Discharge Plan Discharge Clinical Impression: Sinusitis Qualifiers: Sinusitis location: unspecified location Chronicity: acute Recurrence: non- recurrent Qualified Code(s): J01.90 - Acute sinusitis, unspecified Patient Disposition: Home Condition: Stable Instructions: Antibiotic Form, Sinusitis (ED) Additional Instructions: Your rapid COVID, flu, strep were negative. A throat culture be sent off it is positive for strep you will be contacted. Take the antibiotics as directed and complete the course even if you start to feel better. You may use a Neti pot saline rinse 3 times a day with lukewarm distilled water Continue to take Tylenol or Motrin for pain. Follow instructions on the bottle. Take Zofran as needed for nausea and vomiting. Use a humidifier or vaporizer at night. Drink plenty of water. 8-10 glasses per day. Use flonase 2 times per day for 5 days then as needed Take mucinex 2 times per day and be sure to take with 8oz of water. Follow up with Primary provider in 3-5 days Please go to the ER if he develops any difficulty breathing, chest pain, worsening vomiting, worsening symptoms, or any other concerns Patient Language: Tajik Prescriptions: New ondansetron 4 mg tablet,disintegrating 4 mg PO Q8H PRN (Reason: nausea and vomiting) Qty: 12 0RF cefdinir 250 mg/5 mL suspension for reconstitution 300 mg PO Q12H 7 Days Qty: 84 0RF No Action methimazole 10 mg tablet atenolol 25 mg tablet diazepam 5 mg tablet Follow-up/Referrals: Jose Su MD [Primary Care Provider, Hospitalist] Stand Alone Forms: Work/School Release IP Time of Disposition: 11:52
== END 2025-06-12 12:14 | disposition home or self-care (01) ==
PROVIDERS: PCP Internal Medicine
DX: J01.90 Acute sinusitis, unspecified (principal); Z20.822 Contact with and (suspected) exposure to COVID-19
CPT/HCPCS: 87081; 87426; 87804; 87880; 99213; G0463